=== PATIENT | female | born 1940 | race Caucasian/White ===

== ENCOUNTER 2018-05-21 18:37 | Emergency (ER) | payer OTHER ==
[2018-05-21] MEDS ORDERED: HYDROCODONE/APAP 5/325 MG TAB ONE (20:16)
--- NOTE | 2018-05-21 21:01 | RAD REPORT ---
EXAM DESCRIPTION: RAD - Knee Left 3 View - 05/21/2018 8:40 pm CLINICAL HISTORY: knee pain COMPARISON: No comparisons FINDINGS: Prominent soft tissue edema is present involving the leg. No fracture or dislocation seen. A pin is noted superficially along the lateral aspect of the lower leg.
--- NOTE | 2018-05-21 21:22 | ER ---
Nurse's Notes [facility] Name: Dang Ovalles Age: 77 yrs Sex: Female : 1940 Arrival Date: 05/21/2018 Time: 18:41 Bed 15 Private MD: Paula Chamorro F Diagnosis: Internal derangement of knee Presentation: 05/21 18:48 Presenting complaint: Patient states: "I kneeled down and my knee popped". Pt c/o left aa5 knee pain. Transition of care: patient was not received from another setting of care. Onset of symptoms was May 21, 2018. Risk Assessment: Do you want to hurt yourself or someone else? Patient reports no desire to harm self or others. Initial Sepsis Screen: Does the patient meet any 2 criteria? No. Patient's initial sepsis screen is negative. Does the patient have a suspected source of infection? No. Patient's initial sepsis screen is negative. Care prior to arrival: None. 18:48 Method Of Arrival: Wheelchair aa5 18:48 Acuity: TATY 4 aa5 Historical: - Allergies: 18:50 Tape; aa5 - PMHx: 18:50 lymphedema; Arthritis; Cellulitis; Diabetes - IDDM; aa5 - PSHx: 18:49 Hysterectomy; aa5 - Immunization history:: Pneumococcal vaccine is not up to date, Flu vaccine is not up to date. - Social history:: Smoking status: Patient/guardian denies using tobacco. - Ebola Screening: : No symptoms or risks identified at this time. Screenin:10 Abuse screen: Denies threats or abuse. Nutritional screening: No deficits noted. ea Tuberculosis screening: No symptoms or risk factors identified. Fall Risk None identified. Assessment: 20:10 General: Appears uncomfortable, Behavior is calm, cooperative, appropriate for age. ea Pain: Complains of pain in medial aspect of left knee Pain does not radiate. Pain currently is 8 out of 10 on a pain scale. Quality of pain is described as aching, Is continuous. Neuro: Level of Consciousness is awake, alert, obeys commands, Oriented to person, place, time, situation. Cardiovascular: Heart tones S1 S2 present Patient's skin is warm and dry. Respiratory: Airway is patent Respiratory effort is even, unlabored, Respiratory pattern is regular, symmetrical, Breath sounds are clear bilaterally. GI: No signs and/or symptoms were reported involving the gastrointestinal system. GI: Abdomen is non-distended. : No signs and/or symptoms were reported regarding the genitourinary system. Derm: Skin is pink, warm \\T\\ dry. 21:15 Reassessment: Patient and/or family updated on plan of care and expected duration. Pain ea level reassessed. Patient is alert, oriented x 3, equal unlabored respirations, skin warm/dry/pink. 21:36 Reassessment: Patient and/or family updated on plan of care and expected duration. Pain ea level reassessed. Patient is alert, oriented x 3, equal unlabored respirations, skin warm/dry/pink. Discharge instructions given to patient, verbalized the understanding of instruction. Awaiting on son for transportation. 21:53 Reassessment: Patient and/or family updated on plan of care and expected duration. Pain ea level reassessed. Patient is alert, oriented x 3, equal unlabored respirations, skin warm/dry/pink. Patient left ED with son via wheelchair. Patient states feeling better. Patient states symptoms have improved. Vital Signs: 18:50 BP 161 / 70; Pulse 71; Resp 16 S; Temp 98.0(TE); Pulse Ox 98% on R/A; Weight 89.36 kg aa5 (R); Height 4 ft. 8 in. (142.24 cm); Pain 0/10; 19:52 BP 182 / 61; Pulse 62; Resp 18; Pulse Ox 100% ; ea 20:00 BP 182 / 73; Pulse 64; Resp 18; Pulse Ox 99% on R/A; ea 21:40 BP 168 / 73; Pulse 70; Resp 18; Temp 97.8(O); Pulse Ox 98% on R/A; Pain 3/10; ea 18:50 Body Mass Index 44.17 (89.36 kg, 142.24 cm) aa5 ED Course: 18:41 Patient arrived in ED. mr 18:41 Paula Chamorro MD is Private Physician. mr 18:49 Triage completed. aa5 18:49 Arm band placed on. aa5 19:56 [facility] 19:56 Zaire Castaneda MD is Attending Physician. [facility] 20:05 Gutierrez, Lissette, RN is Primary Nurse. ea 20:10 Patient has correct armband on for positive identification. Placed in gown. Bed in low ea position. Call light in reach. Side rails up X2. 20:39 Knee Left 3 View XRAY In Process Unspecified. EDMS 21:21 Maurizio Garcia MD is Referral Physician. [facility] 21:38 No provider procedures requiring assistance completed. Patient did not have IV access ea during this emergency room visit. Administered Medications: 20:12 Drug: [place] 5 mg-325 mg 1 tabs Route: PO; ea 21:18 Follow up: Response: No adverse reaction; Marked relief of symptoms; Pain is decreased ea Outcome: 21:21 Discharge ordered by MD. [facility] 21:38 Condition: improved ea 21:38 Discharge instructions given to patient, Instructed on discharge instructions, follow up and referral plans. medication usage, Demonstrated understanding of instructions, follow-up care, medications, Prescriptions given X 1. 21:53 Discharged to home via wheelchair, with family. ea 21:54 Patient left the ED. ea Signatures: Dispatcher [employer] EDMS David Hastings PA PA jmm Rivera, Maria mr RamirezDiana, RN RN aa5 Lissette Gutierrez RN RN ea
--- NOTE | 2018-05-21 21:22 | EDPHYS ---
Physician Documentation [facility] Name: Dang Ovalles Age: 77 yrs Sex: Female : 1940 Arrival Date: 05/21/2018 Time: 18:41 Bed 15 Private MD: Paula Chamorro, [place] ED Physician Zaire Castaneda HPI: 05/21 20:02 This 77 yrs old Female presents to ER via Wheelchair with complaints of Knee jmm Pain. 20:02 The patient presents with an injury, pain. The patient presents with an injury, pain, jmm that is acute. The complaints affect the medial aspect of left knee. Onset: The symptoms/episode began/occurred acutely, today. Modifying factors: The symptoms are alleviated by remaining still, the symptoms are aggravated by weight bearing. Associated signs and symptoms: Pertinent negatives fever. This is a 77 year old female with a history of lymphedema, arthritis, DM that presents to the ED with left knee pain which occurred after standing and feeling a pop. Patient denies other injury. Historical: - Allergies: 18:50 Tape; aa5 - PMHx: 18:50 lymphedema; Arthritis; Cellulitis; Diabetes - IDDM; aa5 - PSHx: 18:49 Hysterectomy; aa5 - Immunization history:: Pneumococcal vaccine is not up to date, Flu vaccine is not up to date. - Social history:: Smoking status: Patient/guardian denies using tobacco. - Ebola Screening: : No symptoms or risks identified at this time. ROS: 20:02 Constitutional: Negative for fever, chills, and weight loss, Respiratory: Negative for jmm shortness of breath, cough, wheezing, and pleuritic chest pain. 20:02 MS/extremity: Positive for injury or acute deformity, pain. 20:02 All other systems are negative. Exam: 20:02 Head/Face: atraumatic. Chest/axilla: Normal chest wall appearance and motion. jmm Cardiovascular: Regular rate and rhythm. No edema appreciated Respiratory: Normal respirations, no respiratory distress appreciated 20:02 Constitutional: The patient appears in no acute distress, alert, awake. 20:02 Musculoskeletal/extremity: diffuse swelling appreciated bilaterally, exam was difficult due to body habitus, compartments are soft, pain is elicited on palpation of the left anterior knee, NVI. 20:02 Skin: Appearance: Color: normal in color. 20:02 Neuro: Orientation: is normal, Mentation: is normal, Memory: is normal. 20:02 Psych: Behavior/mood is pleasant, cooperative. Vital Signs: 18:50 BP 161 / 70; Pulse 71; Resp 16 S; Temp 98.0(TE); Pulse Ox 98% on R/A; Weight 89.36 kg aa5 (R); Height 4 ft. 8 in. (142.24 cm); Pain 0/10; 19:52 BP 182 / 61; Pulse 62; Resp 18; Pulse Ox 100% ; ea 20:00 BP 182 / 73; Pulse 64; Resp 18; Pulse Ox 99% on R/A; ea 21:40 BP 168 / 73; Pulse 70; Resp 18; Temp 97.8(O); Pulse Ox 98% on R/A; Pain 3/10; ea 18:50 Body Mass Index 44.17 (89.36 kg, 142.24 cm) aa5 MDM: 20:02 Patient medically screened. [facility] 20:36 Data reviewed: vital signs, nurses notes. Data interpreted: Pulse oximetry: on room air [facility] is 98 %. Interpretation: normal. Counseling: I had a detailed discussion with the patient and/or guardian regarding: the historical points, exam findings, and any diagnostic results supporting the discharge/admit diagnosis, the need for outpatient follow up, to return to the emergency department if symptoms worsen or persist or if there are any questions or concerns that arise at home. 05/21 20:03 Order name: Knee Left 3 View XRAY; Complete Time: 21:20 [facility] 05/21 21:21 Order name: Dayo wrap-joint; Complete Time: 21:28 [facility] Administered Medications: 20:12 Drug: [place] 5 mg-325 mg 1 tabs Route: PO; ea 21:18 Follow up: Response: No adverse reaction; Marked relief of symptoms; Pain is decreased ea Disposition: 05/22 06:43 Co-signature as Attending Physician, Zaire Castaneda MD I agree with the assessment and thompson plan of care. Disposition: 05/21/18 21:21 Discharged to Home. Impression: Internal derangement of knee. - Condition is Stable. - Discharge Instructions: Knee Pain. - Prescriptions for Tylenol- Codeine #3 300-30 mg Oral Tablet - take 1 tablet by ORAL route every 6 hours As needed; 12 tablet. - Medication Reconciliation Form, Thank You Letter, Antibiotic Education, Prescription Opioid Use form. - Follow up: Maurizio Garcia MD; When: 2 - 3 days; Reason: Recheck today's complaints, Continuance of care, Re-evaluation by your physician. Signatures: Dispatcher [employer] [facility] Zaire Castaneda MD MD cha Mickail, Joel, PA PA jmm Calderon, Audri RN RN aa5 Lissette Gutierrez RN RN ea Corrections: (The following items were deleted from the chart) 05/21 20:12 20:03 Knee Right 3 View+RAD.RAD.BRZ ordered. [facility] 21:54 21:21 05/21/2018 21:21 Discharged to Home. Impression: Internal derangement of knee. ea Condition is Stable. Forms are Medication Reconciliation Form, Thank You Letter, Antibiotic Education, Prescription Opioid Use. Follow up: Maurizio Garcia; When: 2 - 3 days; Reason: Recheck today's complaints, Continuance of care, Re-evaluation by your physician. arturo
[2018-05-21 23:20] VITALS: BP 168/73; TEMP 97.8; O2SAT 98
== END 2018-05-21 21:54 | disposition home or self-care (01) ==
LOC: ER 18:37
DX: M23.92 Unspecified internal derangement of left knee (principal); E11.9 Type 2 diabetes mellitus without complications; Z91.048 Other nonmedicinal substance allergy status
CPT/HCPCS: 99283

== ENCOUNTER 2018-07-13 15:46 | Inpatient (IN) | payer OTHER ==
[2018-07-13 17:54] LABS: Absolute Lymphocytes (CBC) 0.6 K/uL (0.7-4.9); Absolute Monocytes 0.9 K/uL (0.1-1.3); Basophils % 0.1 % (0-1.3); Hematocrit 36.7 % (36.0-45.0); Lymphocytes % 4.6 % (15.3-44.8); MCH 30.2 pg (27.0-35.0); MCV 90.4 fL (80-100); MPV 8.6 fL (7.6-11.3); Monocytes % 6.3 % (3.3-12.3); RBC Red Blood Cell Count 4.06 M/uL (3.86-4.86)
[2018-07-13 17:56] LABS: Protime INR 1.37
[2018-07-13 18:17] LABS: Albumin 2.8 g/dL (3.4-5.0); Bilirubin Direct 0.4 mg/dL (0-0.2); Bilirubin Total 1.4 mg/dL (0.2-1.0); Potassium 4.1 mmol/L (3.5-5.1); Protein, Total 6.9 g/dL (6.4-8.2); Troponin (Emerg Dept Use Only) 0.03 ng/mL (0.0-0.045)
[2018-07-13 18:23] LABS: Magnesium 1.1 mg/dL (1.8-2.4)
--- NOTE | 2018-07-13 18:26 | RAD REPORT ---
EXAM DESCRIPTION: Danilo Single View07/13/2018 6:09 pm CLINICAL HISTORY: Shortness of breath COMPARISON: March 2018 FINDINGS: 8 centimeter consolidation involves the right lung. Left lung appears clear. The heart is mildly enlarged IMPRESSION: Right lung consolidation consistent with pneumonia. This should be followed until it has cleared to help exclude a post obstructive process/underlying mass
[2018-07-13 18:32] LABS: Blood Morphology Comment NOT SEEN (NOT SEEN); Platelet Estimate ADEQ
--- NOTE | 2018-07-13 18:38 | RAD REPORT ---
EXAM DESCRIPTION: USExtrem Venous W Compress Bil07/13/2018 6:31 pm CLINICAL HISTORY: Leg pain COMPARISON: 2016 FINDINGS: The common femoral, superficial femoral, and popliteal veins bilaterally are compressible and demonstrate augmentation. Doppler demonstrates good flow. The examination is somewhat limited secondary to body habitus A 3.9 x 1 x 3.7 centimeter right Hong's cyst IMPRESSION: No evidence of deep venous thrombosis involving either lower extremity. 3.9 centimeter right Hong's cyst
[2018-07-13] MEDS ORDERED: ALBUTEROL 2.5 MG/3 ML NEB SOL ONE (18:46)
[2018-07-13] MEDS ORDERED: IPRATROPIUM BROM 0.5MG/2.5ML ONE (18:46)
[2018-07-13] MEDS ORDERED: Magnesium Sulfate 2gm IVPB 2 G/50 ML BAG IV ONE (18:47)
[2018-07-13] MEDS ORDERED: Levofloxacin 750mg IV 750 MG/150 ML BAG IV ONE (18:47)
--- NOTE | 2018-07-13 19:21 | EDPHYS ---
Physician Documentation [facility] Name: Dang Ovalles Age: 78 yrs Sex: Female : 1940 Arrival Date: 07/13/2018 Time: 15:52 Bed 8 Private MD: Paula Chamorro F ED Physician John Latif HPI: 07/14 05:06 This 78 yrs old Female presents to ER via Wheelchair with complaints of Leg tw4 Pain, Fever, Shortness Of Breath. 05:06 The patient presents with pain. The patient presents with swelling. The complaints tw4 affect the lateral aspect of left calf, left calf, medial aspect of left calf and left [place], lateral aspect of right calf, right calf, medial aspect of right calf and right saldana. Context: The problem was sustained at home. Onset: The symptoms/episode began/occurred 1 week(s) ago. Modifying factors: The symptoms are alleviated by nothing. the symptoms are aggravated by nothing. Associated signs and symptoms: The patient has no apparent associated signs or symptoms. The patient has shortness of breath at rest. Onset: The symptoms/episode began/occurred 2 day(s) ago. Duration: The symptoms are continuous. The patient's shortness of breath has no apparent modifying factors. Associated signs and symptoms: The patient has no apparent associated signs or symptoms. Historical: - Allergies: 07/13 16:28 Tape; jl7 - PMHx: 16:28 Arthritis; Cellulitis; Diabetes - IDDM; lymphedema; breast cancer; jl7 - PSHx: 16:28 Hysterectomy; jl7 - Immunization history:: Adult Immunizations not up to date. - Social history:: Smoking status: Patient/guardian denies using tobacco. - Ebola Screening: : No symptoms or risks identified at this time. ROS: 07/14 05:06 Constitutional: Negative for fever, chills, and weight loss, Eyes: Negative for injury, tw4 pain, redness, and discharge, Cardiovascular: Negative for chest pain, palpitations, and edema, Abdomen/GI: Negative for abdominal pain, nausea, vomiting, diarrhea, and constipation, Back: Negative for injury and pain, Skin: Negative for injury, rash, and discoloration, Neuro: Negative for headache, weakness, numbness, tingling, and seizure. Respiratory: Positive for cough, shortness of breath. MS/extremity: Positive for pain. Exam: 05:06 Eyes: Pupils equal round and reactive to light, extra-ocular motions intact. Lids and tw4 lashes normal. Conjunctiva and sclera are non-icteric and not injected. Cornea within normal limits. Periorbital areas with no swelling, redness, or edema. ENT: Nares patent. No nasal discharge, no septal abnormalities noted. Tympanic membranes are normal and external auditory canals are clear. Oropharynx with no redness, swelling, or masses, exudates, or evidence of obstruction, uvula midline. Mucous membranes moist. Neck: Trachea midline, no thyromegaly or masses palpated, and no cervical lymphadenopathy. Supple, full range of motion without nuchal rigidity, or vertebral point tenderness. No Meningismus. Chest/axilla: Normal chest wall appearance and motion. Nontender with no deformity. No lesions are appreciated. Cardiovascular: Regular rate and rhythm with a normal S1 and S2. No gallops, murmurs, or rubs. Normal PMI, no JVD. No pulse deficits. 05:06 Constitutional: The patient appears alert, awake, in obvious distress, mildly distressed. 05:06 Respiratory: the patient does not display signs of respiratory distress, Respirations: normal, Breath sounds: rales. Vital Signs: 07/13 16:28 BP 121 / 50; Pulse 94; Resp 24 S; Temp 100(O); Pulse Ox 96% on R/A; Weight 90.72 kg jl7 (R); Height 4 ft. 8 in. (142.24 cm) (R); Pain 1/10; 20:01 BP 118 / 55; Pulse 96; Resp 26; Pulse Ox 94% on R/A; mt 20:36 BP 107 / 58; Pulse 98; Resp 20; Pulse Ox 100% on R/A; mt 21:30 BP 102 / 59; Pulse 102; Resp 25 S; Pulse Ox 94% on R/A; jd3 16:28 Body Mass Index 44.84 (90.72 kg, 142.24 cm) jl7 MDM: 17:07 Patient medically screened. [facility] 07/14 05:06 Differential diagnosis: dislocation, contusion, abrasion. Data reviewed: vital signs, tw4 nurses notes. Test interpretation: by ED physician or midlevel provider: ECG. Counseling: I had a detailed discussion with the patient and/or guardian regarding: the historical points, exam findings, and any diagnostic results supporting the discharge/admit diagnosis, lab results, radiology results, the need for further work-up and treatment in the hospital. 05:06 Antibiotic administration: Levaquin given, Rocephin and Zithromax given. 4 07/13 17:15 Order name: Basic Metabolic Panel [facility] 07/13 17:15 Order name: CBC with Diff tw 07/13 17:15 Order name: LFT's [facility] 07/13 17:15 Order name: Magnesium [facility] 07/13 17:15 Order name: NT PRO-BNP [facility] 07/13 17:15 Order name: PT-INR [facility] 07/13 17:15 Order name: Troponin (emerg Dept Use Only) [facility] 07/13 17:55 Order name: CBC with Automated Diff [facility] 07/13 18:23 Interpretation: Normal except: WBC 13.5; SHERON% 89.0; LYM% 4.6; NEUT A 12.0; LYMA 0.6. 4 07/13 17:57 Order name: Protime (+INR); Complete Time: 18:19 [facility] 07/13 18:23 Interpretation: Normal except: PT 16.2. tw4 07/13 18:24 Order name: Basic Metabolic Panel [facility] 07/13 18:24 Order name: Liver (Hepatic) Function [facility] 07/13 18:24 Order name: Troponin (Emerg Dept Use Only) [facility] 07/13 18:24 Order name: NT PRO-BNP [facility] 07/13 18:24 Order name: Magnesium; Complete Time: 18:51 [facility]CO 07/13 17:15 Order name: XRAY Chest (1 view) [facility] 07/13 17:15 Order name: EKG; Complete Time: 17:17 4 07/13 17:15 Order name: Cardiac monitoring; Complete Time: 17:39 [facility] 07/13 17:15 Order name: EKG - Nurse/Tech; Complete Time: 17:39 [facility] 07/13 17:16 Order name: US Extremity Venous W Compression Jarrell 4 07/13 18:26 Order name: RAD; Complete Time: 18:51 EDMS 07/13 18:32 Order name: Manual Differential [facility] 07/13 18:38 Order name: US [facility] 07/13 19:08 Order name: Lactate tw4 07/13 21:05 Order name: Troponin I EDMS 07/13 21:14 Order name: Lactate [facility] 07/13 17:15 Order name: IV Saline Lock; Complete Time: 17:40 tw4 07/13 17:15 Order name: Labs collected and sent; Complete Time: 17:40 tw4 07/13 17:15 Order name: O2 Per Protocol; Complete Time: 17:40 tw4 07/13 17:15 Order name: O2 Sat Monitoring; Complete Time: 17:40 tw4 Administered Medications: 07/13 18:43 Drug: Albuterol - atroVENT (3:1) (2.5 mg - 0.5 mg) 3 ml Route: Nebulizer; rv 20:08 Follow up: Response: No adverse reaction rv 18:49 Drug: Magnesium Sulfate 2 grams Route: IVPB; Infused Over: 2 hrs; Site: right rv antecubital; 20:09 Follow up: IV Status: Completed infusion rv 19:08 CANCELLED (Physician Discretion): CefUROXime 750 mg IVPB once over 30 mins; (mix in 100 jd3 mL NS) 19:55 Drug: Rocephin 2 grams Route: IV; Rate: calculated rate; Site: right antecubital; rv 21:09 Follow up: Response: No adverse reaction; IV Status: Completed infusion jd3 20:00 Drug: LevaQUIN 750 mg Volume: 150 ml; Route: IVPB; Infused Over: 90 mins; Site: right rv antecubital; 21:09 Follow up: Response: No adverse reaction; IV Status: Infusion continued upon admission jd3 Disposition: 07/13/18 18:49 Hospitalization ordered by Paula Chamorro for Inpatient Admission. Preliminary diagnosis are Pneumonia due to other specified bacteria, Hypoxemia, Hypomagnesemia, Bandemia, Synovial cyst of popliteal space [Hong], right knee. - Bed requested for Telemetry/MedSurg (Inpatient). - Status is Inpatient Admission. jd3 - Condition is Stable. - Problem is new. - Symptoms are unchanged. UTI on Admission? No Signatures: Dispatcher [employer] [facility] Zaire Castaneda MD MD cha Chretien, Felicia, RN RN fc Leal, Jahala, RN RN jl7 Davies, Jonathon, RN RN j John Latif MD MD tw4 Anthony Luther, RN RN rv Corrections: (The following items were deleted from the chart) 18:49 18:49 Hospitalization Ordered by Paula Chamorro MD for Inpatient Admission. Preliminary tw4 diagnosis is Pneumonia due to other specified bacteria; Hypoxemia; Hypomagnesemia; Bandemia. Bed requested for Telemetry/MedSurg (Inpatient). Status is Inpatient Admission. Condition is Stable. Problem is new. Symptoms are unchanged. UTI on Admission? No. tw4 19:08 18:20 CefUROXime 750 mg IVPB once over 30 mins; (mix in 100 mL NS) ordered. tw4 jd3 20:29 18:49 07/13/2018 18:49 Hospitalization Ordered by Paula Chamorro MD for Inpatient Admission. Preliminary diagnosis is Pneumonia due to other specified bacteria; Hypoxemia; Hypomagnesemia; Bandemia; Synovial cyst of popliteal space [Hong], right knee. Bed requested for Telemetry/MedSurg (Inpatient). Status is Inpatient Admission. Condition is Stable. Problem is new. Symptoms are unchanged. UTI on Admission? No. tw4 21:57 20:29 07/13/2018 18:49 Hospitalization Ordered by Paula Chamorro MD for Inpatient jd3 Admission. Preliminary diagnosis is Pneumonia due to other specified bacteria; Hypoxemia; Hypomagnesemia; Bandemia; Synovial cyst of popliteal space [Hong], right knee. Bed requested for Telemetry/MedSurg (Inpatient). Status is Inpatient Admission. Condition is Stable. Problem is new. Symptoms are unchanged. UTI on Admission? No. fc
--- NOTE | 2018-07-13 19:21 | ER ---
Nurse's Notes [facility] Name: Dang Ovalles Age: 78 yrs Sex: Female : 1940 Arrival Date: 07/13/2018 Time: 15:52 Bed 8 Private MD: Paula Chamorro F Diagnosis: Pneumonia due to other specified bacteria;Hypoxemia;Hypomagnesemia;Bandemia;Synovial cyst of popliteal space [Hong], right knee Presentation: 07/13 16:24 Presenting complaint: Patient states: Chills, fever shortness of breath started last jl7 night. Left leg infection and pain started this morning. Went to Dr. Barrett's office and they took her temperature and said it was 102.5 and told us to bring her here. They did not give any medication. Transition of care: patient was not received from another setting of care. Onset of symptoms was July 12, 2018. Risk Assessment: Do you want to hurt yourself or someone else? Patient reports no desire to harm self or others. Initial Sepsis Screen: Does the patient meet any 2 criteria? No. Patient's initial sepsis screen is negative. Does the patient have a suspected source of infection? No. Patient's initial sepsis screen is negative. Care prior to arrival: None. 16:24 Method Of Arrival: Wheelchair [facility] 16:24 Acuity: TATY 3 jl7 Triage Assessment: 16:28 General: Appears uncomfortable, ill, Behavior is calm, cooperative, appropriate for jl7 age. Pain: Complains of pain in left leg Pain currently is 1 out of 10 on a pain scale. Respiratory: Reports shortness of breath at rest Airway is patent Respiratory effort is even, labored, Respiratory pattern is symmetrical, tachypnea Onset: The symptoms/episode began/occurred this morning, the patient has moderate shortness of breath. Historical: - Allergies: 16:28 Tape; jl7 - PMHx: 16:28 Arthritis; Cellulitis; Diabetes - IDDM; lymphedema; breast cancer; jl7 - PSHx: 16:28 Hysterectomy; jl7 - Immunization history:: Adult Immunizations not up to date. - Social history:: Smoking status: Patient/guardian denies using tobacco. - Ebola Screening: : No symptoms or risks identified at this time. Screenin:02 Abuse screen: Denies threats or abuse. Denies injuries from another. Nutritional rv screening: No deficits noted. Tuberculosis screening: No symptoms or risk factors identified. Fall Risk None identified. Assessment: 18:01 General: Appears in no apparent distress. uncomfortable, obese, Behavior is calm, rv cooperative. Pain: Denies pain. Neuro: Level of Consciousness is awake, alert, obeys commands, Oriented to person, place, time, situation. Cardiovascular: Rhythm is regular. Respiratory: Airway is patent Breath sounds are clear bilaterally. GI: No signs and/or symptoms were reported involving the gastrointestinal system. : No signs and/or symptoms were reported regarding the genitourinary system. EENT: No signs and/or symptoms were reported regarding the EENT system. Derm: Skin is intact. Musculoskeletal: No signs and/or symptoms reported regarding the musculoskeletal system. 19:00 Reassessment: Patient appears in no apparent distress at this time. No changes from jd3 previously documented assessment. Patient and/or family updated on plan of care and expected duration. Pain level reassessed. Patient is alert, oriented x 3, equal unlabored respirations, skin warm/dry/pink. 20:00 Reassessment: Patient appears in no apparent distress at this time. No changes from jd3 previously documented assessment. Patient and/or family updated on plan of care and expected duration. Pain level reassessed. Patient is alert, oriented x 3, equal unlabored respirations, skin warm/dry/pink. 21:00 Reassessment: Patient appears in no apparent distress at this time. No changes from jd3 previously documented assessment. Patient and/or family updated on plan of care and expected duration. Pain level reassessed. Patient is alert, oriented x 3, equal unlabored respirations, skin warm/dry/pink. 21:50 Reassessment: Patient appears in no apparent distress at this time. No changes from jd3 previously documented assessment. Vital Signs: 16:28 BP 121 / 50; Pulse 94; Resp 24 S; Temp 100(O); Pulse Ox 96% on R/A; Weight 90.72 kg jl7 (R); Height 4 ft. 8 in. (142.24 cm) (R); Pain 1/10; 20:01 BP 118 / 55; Pulse 96; Resp 26; Pulse Ox 94% on R/A; mt 20:36 BP 107 / 58; Pulse 98; Resp 20; Pulse Ox 100% on R/A; mt 21:30 BP 102 / 59; Pulse 102; Resp 25 S; Pulse Ox 94% on R/A; jd3 16:28 Body Mass Index 44.84 (90.72 kg, 142.24 cm) jl7 ED Course: 15:52 Patient arrived in ED. sb2 15:53 Paula Chamorro MD is Private Physician. sb2 16:27 Triage completed. jl7 16:28 Arm band placed on right wrist. jl7 17:07 Zaire Castaneda MD is Attending Physician. [facility] 17:08 Attending Physician role handed off by Zaire Castaneda MD tw4 17:08 John Latif MD is Attending Physician. tw4 17:39 EKG done, by coating technician. reviewed by John Latif MD. sm3 17:40 Inserted saline lock: 22 gauge in right antecubital area, using aseptic technique. rv Blood collected. 17:40 Initial lab(s) drawn, by mn, sent to lab. rv 18:02 Patient has correct armband on for positive identification. Bed in low position. Call rv light in reach. Side rails up X 1. Adult w/ patient. wood and hardware outfitter on. Pulse ox on. NIBP on. 18:48 Paula Chamorro MD is Hospitalizing Provider. tw4 19:07 Martínez Pyle, RN is Primary Nurse. jd3 21:50 No provider procedures requiring assistance completed. Patient admitted, IV remains in jd3 place. Administered Medications: 18:43 Drug: Albuterol - atroVENT (3:1) (2.5 mg - 0.5 mg) 3 ml Route: Nebulizer; rv 20:08 Follow up: Response: No adverse reaction rv 18:49 Drug: Magnesium Sulfate 2 grams Route: IVPB; Infused Over: 2 hrs; Site: right rv antecubital; 20:09 Follow up: IV Status: Completed infusion rv 19:08 CANCELLED (Physician Discretion): CefUROXime 750 mg IVPB once over 30 mins; (mix in 100 jd3 mL NS) 19:55 Drug: Rocephin 2 grams Route: IV; Rate: calculated rate; Site: right antecubital; rv 21:09 Follow up: Response: No adverse reaction; IV Status: Completed infusion jd3 20:00 Drug: LevaQUIN 750 mg Volume: 150 ml; Route: IVPB; Infused Over: 90 mins; Site: right rv antecubital; 21:09 Follow up: Response: No adverse reaction; IV Status: Infusion continued upon admission jd3 Outcome: 18:49 Decision to Hospitalize by Provider. tw4 21:50 Admitted to Med/surg accompanied by tech, via wheelchair, room 430, with chart, Report jd3 called to Nicky CHAMBERS 21:50 Condition: stable 21:50 Instructed on the need for admit, Demonstrated understanding of instructions. 21:50 Patient left the ED. jd3 Signatures: Zaire Castaneda MD MD cha Leal, Jahala, RN RN jl7 Yu Ruiz mt, Jonathon, RN RN jJonh Scott MD MD tw4 Fiona Quinones 2 Charmaine López 3 Anthony Luther, RN RN rv Corrections: (The following items were deleted from the chart) 21:58 21:57 Patient left the ED. jd3 jd3
[2018-07-13] MEDS ORDERED: CEFTRIAXONE/SWI 1gm 2 GM/20 ML SYR ONE (19:57)
[2018-07-13] MEDS ORDERED: Levofloxacin500mg IV 100 ML IV SCH (20:00)
[2018-07-13] MEDS ORDERED: CEFTRIAXONE 1 GM/NS 50 ML 1 GM/50 ML BAG IV SCH (21:00)
[2018-07-13] MEDS: ACETAMINOPHEN 500 MG TAB PO PRN (23:06)
[2018-07-14] MEDS ORDERED: NA CHLORIDE 0.9% 250 ML IV ONE (00:43)
[2018-07-14] MEDS: NA CHLORIDE 0.9% 1,000 ML IV SCH ×3 (01:00→21:00)
[2018-07-14 02:44] VITALS: BMI 47.0
--- NOTE | 2018-07-14 05:52 | EKG ---
Test Date: 2018-07-13 Test Time: 17:34:46 Avp: DULCE MARIA MEASUREMENT RESULTS: Intervals: Rate: 92 ID: [id number] QRSD: 102 QT: 342 QTc: 422 [place]: P: 55 ID: [id number] QRS: 21 T: 24 INTERPRETIVE STATEMENTS: Normal sinus rhythm Incomplete right bundle branch block Septal infarct, age undetermined Abnormal ECG No previous ECG available for comparison Electronically Signed On 07-14-18 05:51:35 CONTRACT ASSISTANT by Jarvis Mackey
[2018-07-14 06:06] LABS: Absolute Lymphocytes (CBC) 1.1 K/uL (0.7-4.9); Absolute Monocytes 1.1 K/uL (0.1-1.3); Absolute Neutrophil 14.6 K/uL (1.8-8.0); Basophils % 0.2 % (0-1.3); Hematocrit 34.4 % (36.0-45.0); Lymphocytes % 6.4 % (15.3-44.8); MCH 30.8 pg (27.0-35.0); MCV 90.1 fL (80-100); MPV 9.1 fL (7.6-11.3); Monocytes % 6.3 % (3.3-12.3); RBC Red Blood Cell Count 3.82 M/uL (3.86-4.86)
[2018-07-14 06:15] LABS: Magnesium 1.9 mg/dL (1.8-2.4)
[2018-07-14] MEDS: CEFTRIAXONE/SWI 1gm 1 GM/10 ML SYR IV SCH ×2 (08:18→23:18)
[2018-07-14 08:37] LABS: Platelet Estimate ADEQ
[2018-07-14 08:38] LABS: Blood Morphology Comment NOT SEEN (NOT SEEN)
--- NOTE | 2018-07-14 12:36 | P.CNS ---
Date of Consult: 07/14/18 Reason for Consult: Right lower lobe pneumonia Chief Complaint: Cough congestion fever chills History of Present Illness: Patient is 78 years of age no prior history of cardiopulmonary problems woke up complaining of fever chills cough shortness of breath. Denied any chest pain admitted from the hospital with a diagnosis of severe sepsis and right lower lobe pneumonia currently patient is stable although blood pressure is little low Allergies adhesive tape Allergy (Intermediate, Verified 07/14/18 02:59) Rash Home Medications: Esomeprazole Mag Trihydrate [Nexium] 40 mg PO DAILY 07/12/15 Fluocinonide [Lidex] 1 gm TP DAILY 07/12/15 Metformin HCl [Metformin HCl ER] 750 mg PO DAILY 07/12/15 Nystatin Cream [Mycostatin 100MU/Gm Cream*] 30 gm TP BID 07/12/15 Triamterene/Hctz [DYAZIDE or MAXZIDE (37.5 MG/25 MG)*] 1 cap PO DAILY 07/12/15 Amoxicillin/Potassium Clav [Augmentin 875-125 Tablet] 1 each PO BID #20 tablet 12/07/15 - Past Medical/Surgical History Diabetic: Yes -: cellulitis rt leg -: lymphedema 1982 -: GERD -: DM -: Arthritis -: Breast cancer -: Hysterectomy cancer 1970 -: D&C - Family History Brother Medical History: Cancer Notes: sister also Father History Unknown: Yes Mother History Unknown: Yes - Social History Smoking Status: Never smoker Alcohol use: No CD- Drugs: No Caffeine use: Yes Place of Residence: Home Review of Systems 10-point ROS is otherwise unremarkable General: Weakness Respiratory: Cough, Shortness of Breath Physical Examination Temp Pulse Resp BP Pulse Ox 97.6 F 80 32 H 103/47 L 98 07/14/18 08:00 07/14/18 08:00 07/14/18 08:00 07/14/18 08:00 07/14/18 08:00 General: Alert, Oriented x3 HEENT: Atraumatic Neck: Supple Respiratory: Crackles/rales (Crackles at the right base) Cardiovascular: Edema (Patient has chronic lymphedema) Gastrointestinal: Normal bowel sounds, Soft and benign Laboratory Data (last 24 hrs) 07/13/18 17:40: PT 16.2 H, INR 1.37 07/13/18 17:40: WBC 13.5 H, Hgb 12.3, Hct 36.7, Plt Count 172 07/13/18 17:40: Sodium 132 L, Potassium 4.1, BUN 22 H, Creatinine 1.40 H, Glucose 301 H, Magnesium 1.1 L*, Total Bilirubin 1.4 H, AST 26, ALT 19, Alkaline Phosphatase 67 - Problems (1) Pneumonia Current Visit: Yes Status: Acute Plan: Patient is 78 years of age admitted with signs and symptoms of pneumonia she appears to have a right lower lobe pneumonia elevated white count lactic acid bandemia also has renal insufficiency low blood pressure white count elevated she got a dose of Rocephin and levofloxacin in the emergency room needs a central line access fluid bolus signs symptoms are consistent with most likely in a streptococcal pneumonia will adjust antibiotics depending on the cultures and sensitivities Qualifiers: Pneumonia type: due to unspecified organism
[2018-07-14] MEDS: NA CHLORIDE 0.9% 500 ML ONE ×2 (14:13→14:21)
[2018-07-14] MEDS ORDERED: LIDOCAINE 1% MPF 30 ML VIAL ONE (14:35)
--- NOTE | 2018-07-14 14:45 | P.CNS ---
Date of Consult: 07/14/18 PC: I was asked to see this 78-year-old female regards to placement of a central line. HPC: Patient currently is septic from pneumonia. Has no IV access. PMH: History of breast cancer, had radiation to left-sided chest and axilla PSHx: Previous surgeries the left breast, no clavicular fractures SOC: Allergic to adhesive tape O/E awake alert stable stable HEENT: Not jaundiced Chest: Entry equal bilaterally ABD: Soft LOCO: No evidence of clavicular fractures right side DATA: Elevated white cell count, signs is sent IMPRESSION: Sepsis with pneumonia, requires IV access PLAN: L2 to the operating room for insertion of a right subclavian catheter. The risks of this procedure were discussed. She understands and wants to proceed.
--- NOTE | 2018-07-14 14:47 | P.OP ---
Preoperative diagnosis: Lack of vascular access, sepsis Postoperative diagnosis: The same Primary procedure: Insertion of right subclavian catheter Anesthesia: Local Estimated blood loss: Less than 10 cc Operative Technique: The patient brought the operating room placed supine on the table. After placing a roll between the shoulders: There the right chest was prepped with a AE iodoform solution, she was draped in usual aseptic manner. The subclavicular area was injected lumps of lidocaine. She was then placed in Trendelenburg. Using the a finer needle the right subclavian vein was cannulated. We had good flow of dark venous blood. The guidewire was passed down through or needle. Ectopy having been obtained, the will opening was mildly dilated using the dilator. The catheter was now plasty over the guidewire and position. The guidewire was removed. The catheter was then sutured in place. It was flushed with normal saline. At the end of procedure she was stable when placed in recovery. Chest x-ray is pending. Complications: None Transferred to: Recovery Room
--- NOTE | 2018-07-14 14:59 | RAD REPORT ---
EXAM DESCRIPTION: RAD - Chest Single View - 07/14/2018 2:47 pm CLINICAL HISTORY: catheter placment Chest pain. COMPARISON: Chest Single View dated 07/13/2018; CHEST SINGLE VIEW dated 06/06/2013; CHEST PA AND LAT 2 VIEW dated 03/11/2011 FINDINGS: Portable technique limits examination quality. The right-sided venous catheter has been placed with its tip in the SVC. No postprocedure pneumothora x seen.
[2018-07-14] MEDS ORDERED: GLUCAGON 1 MG/VIAL IM PRN (16:17)
[2018-07-14] MEDS ORDERED: D50W 25 GM/50 ML SYRINGE IV PRN (16:17)
[2018-07-14] MEDS ORDERED: SODIUM CHL 0.9% 1000 ML BAG IV ONE (16:26)
[2018-07-14] MEDS ORDERED: NA CHLORIDE 0.9% IV ONE (17:00)
[2018-07-14] MEDS: AZITHROMYCIN 250 MG TAB PO SCH (17:45)
[2018-07-14] MEDS: INSULIN -REGULAR HUMAN 50 UNIT/0.5 ML ML SQ SCH ×2 (17:46→21:00)
[2018-07-14] MEDS: ENOXAPARIN 30 MG/0.3 ML SQ SCH (17:47)
[2018-07-14 18:33] LABS: Urine Appearance CLOUDY; Urine Bilirubin NEGATIVE (NEG); Urine Blood NEGATIVE (NEG); Urine Color DK YELLOW; Urine Glucose NEGATIVE (NEG); Urine Protein TRACE (NEG); Urine Urobilinogen 0.2 mg/dL (0.2-1.0)
[2018-07-14 18:46] LABS: Urine Bacteria 20-50 /HPF (<20); Urine RBC NONE SEEN /HPF (NONE SEEN)
[2018-07-14 18:47] LABS: Urine Culture Reflex Order REFLEXED
[2018-07-14] MEDS ORDERED: Levofloxacin 250mg IV 250 MG/50 ML BAG IV SCH (21:00)
--- NOTE | 2018-07-14 22:13 | HP ---
Date of Admission: 07/13/2018 History Of Present Illness: A 78 year female with type 2 diabetes started feeling feverish and then started having chills with a mild dry cough for about 1 day before she presented to the emergency diane with that complaint. She started feeling weak, fatigue, shortness of breath. Workup showed right lobar pneumonia with sepsis and the patient was admitted for that. Review of Systems: Cardiovascular: No complaints. Respiratory: As above. Skeletomuscular: All over body aches with fever. No other complaint. Genitourinary: No complaint. Gastrointestinal: Mild nausea but no vomiting. No other complaint. Neurological: No complaint. Past Medical History: 1.Type 2 diabetes. 2.Chronic lower extremity lymphedema. 3.Breast cancer. 4.Arthritis multiple joints. 5.Recurrent cellulitis in her lower extremities lymphedemic area. The patient also has had a hyster ectomy. Social History: No smoking, alcohol, or IV drug abuse history. Family History: Noncontributing. Medications: The patient's medications include Maxzide 37.5/25 one p.o. daily, metformin 750 daily p .o., Lidex 1 g daily, Nexium 40 mg p.o. daily. Allergies: ADHESIVE TAPE. Physical Examination: Vital Signs: Blood pressure 103/47, pulse 80, temperature initially on presenting to the emergency r oom was 100 Fahrenheit, now dropped down to 97.6. Heart: Regular rate and rhythm. Chest: Bilateral crackles all lung field, more on the right side. Abdomen: Soft, nontender. No hepatosplenomegaly. Bowel sounds are normoactive. Extremities: Chronic lymphedema with erythema chronic for the patient on both legs. Neurological: Alert, oriented, nonfocal. Grossly intact. Diagnostic Data: Chest x-ray showed lobar pneumonia, consolidation of the right lung. Electrocardio gram: Normal sinus rhythm. Incomplete right bundle-branch block and septal Q-waves. Lower extremit y study showed Hong cyst, but no DVT. Laboratory Data: White cell count 16.7, hemoglobin 11.8, hematocrit 34.4, platelets 145, neutrophils 87.1, bands 32 which are high. Chemistry: Sodium 133, potassium 4, BUN 30, creatinine 1.50. Lacti c acid dropped from 5.1 to 3.1. BNP 1135, magnesium 1.9. Assessment/plan: Sepsis with right lung pneumonia. The patient is being admitted and put on IV Leva cedrick and IV Rocephin antibiotic. Blood cultures are drawn. She was put on oxygen protocol and beta- 2 agonist breathing treatments and IV fluids. We will also monitor her blood sugar, put her on insul in sliding scale moderate, and we will put her on Lovenox subcutaneous prophylaxis. Look orders for details. MFS/MODL Voice ID: [id number]
[2018-07-15 05:37] LABS: Absolute Lymphocytes (CBC) 1.4 K/uL (0.7-4.9); Absolute Monocytes 0.9 K/uL (0.1-1.3); Absolute Neutrophil 14.3 K/uL (1.8-8.0); Basophils % 0.1 % (0-1.3); Eosinophils % 0.7 % (0-4.4); Hematocrit 30.5 % (36.0-45.0); Lymphocytes % 8.6 % (15.3-44.8); MCH 30.4 pg (27.0-35.0); MCV 90.1 fL (80-100); MPV 9.2 fL (7.6-11.3); Monocytes % 5.4 % (3.3-12.3); RBC Red Blood Cell Count 3.38 M/uL (3.86-4.86)
[2018-07-15 05:47] LABS: Magnesium 1.8 mg/dL (1.8-2.4); Potassium 3.9 mmol/L (3.5-5.1)
[2018-07-15] MEDS: NA CHLORIDE 0.9% 1,000 ML IV SCH (07:00)
[2018-07-15] MEDS: INSULIN -REGULAR HUMAN 50 UNIT/0.5 ML ML SQ SCH ×4 (07:30→21:22)
[2018-07-15] MEDS ORDERED: MAGNESIUM SULFATE 1 gm IVPB 1 GM/100 ML BAG IV ONE (09:00)
[2018-07-15] MEDS ORDERED: POTASSIUM CL SA 10 MEQ TAB PO ONE (09:00)
[2018-07-15] MEDS: CEFTRIAXONE/SWI 1gm 1 GM/10 ML SYR IV SCH ×2 (09:43→21:25)
--- NOTE | 2018-07-15 11:10 | P.PN ---
Subjective Date of Service: 07/15/18 Chief Complaint: Pneumonia Subjective: Improving (Patient is improving she had a rough night last night the central line in place received IV fluids still short of breath) Review of Systems General: Weakness Respiratory: Cough Physical Examination - Vital Signs Temperature: 97.6 F Blood Pressure: 133/74 Pulse: 76 Respirations: 24 Pulse Ox (%): 96 - Physical Exam General: Alert, Oriented x3 HEENT: Atraumatic Neck: Supple Respiratory: Crackles/rales (Crackles at the right base) Cardiovascular: Regular rate/rhythm, Normal S1 S2, Edema (Is chronic lymphoid) Assessment & Plan - Problems (Diagnosis) (1) Pneumonia Current Visit: Yes Status: Acute Plan: Patient admitted with pneumonia and repeat chest x-ray cultures are so far negative continue with antibiotics patient also has renal insufficiency Dc IV fluids labs reviewed chest x-ray ordered white count still elevated renal function is improving continue to monitor patient eating and drinking Qualifiers: Pneumonia type: due to unspecified organism
--- NOTE | 2018-07-15 12:17 | RAD REPORT ---
EXAM DESCRIPTION: RAD - Chest Single View - 07/15/2018 11:47 am CLINICAL HISTORY: Follow for pneumonia Chest pain. COMPARISON: Chest Single View dated 07/14/2018; Chest Single View dated 07/13/2018; CHEST SINGLE VIE W dated 06/06/2013; CHEST PA AND LAT 2 VIEW dated 03/11/2011 FINDINGS: Portable technique limits examination quality. Little overall change is seen in the right lower lung consolidation since comparative study. Right-si ded PICC line has tip in the SVC. The heart is mildly prominent size. No displaced fractures. IMPRESSION: Stable chest since 07/14/2018.
[2018-07-15] MEDS: ENOXAPARIN 30 MG/0.3 ML SQ SCH (16:57)
[2018-07-15] MEDS: AZITHROMYCIN 250 MG TAB PO SCH (16:58)
[2018-07-15] MEDS: IPRATROPIUM BROM 0.5MG/2.5ML NEB PRN ×2 (17:25→20:40)
[2018-07-15] MEDS: ALBUTEROL 2.5 MG/3 ML NEB SOL NEB PRN ×2 (17:25→20:40)
[2018-07-16 05:53] LABS: Absolute Lymphocytes (CBC) 1.5 K/uL (0.7-4.9); Basophils % 0.5 % (0-1.3); Eosinophils % 0.9 % (0-4.4); Hematocrit 32.3 % (36.0-45.0); Lymphocytes % 8.5 % (15.3-44.8); MCH 29.9 pg (27.0-35.0); MCV 89.8 fL (80-100); MPV 9.3 fL (7.6-11.3); Monocytes % 5.5 % (3.3-12.3)
[2018-07-16 06:03] LABS: Magnesium 2.2 mg/dL (1.8-2.4); Potassium 4.2 mmol/L (3.5-5.1)
[2018-07-16] MEDS: INSULIN -REGULAR HUMAN 50 UNIT/0.5 ML ML SQ SCH ×4 (07:30→21:56)
[2018-07-16] MEDS: CEFTRIAXONE/SWI 1gm 1 GM/10 ML SYR IV SCH ×2 (10:07→21:56)
[2018-07-16] MEDS: IPRATROPIUM BROM 0.5MG/2.5ML NEB PRN ×3 (10:08→22:18)
[2018-07-16] MEDS: ALBUTEROL 2.5 MG/3 ML NEB SOL NEB PRN ×3 (10:08→22:18)
[2018-07-16] MEDS: AMLODIPINE 5 MG TAB PO SCH (12:43)
--- NOTE | 2018-07-16 15:36 | PN ---
Subjective: The patient is feeling well. Has no new complaint. Objective: Vital Signs: Blood pressure 118/85, pulse 84, temperature 97.7. Heart: Regular rate and rhythm. Chest: Mild bilateral crackles significantly less than before. Abdomen: Soft, benign. Bowel sounds are active. Extremities: No edema. No cyanosis. Peripheral pulses are felt. Laboratory Data: The patient's white count 17.8, hemoglobin 10.8, hematocrit 199, BUN 132, creatinin e 1.2. Blood sugar fingersticks noted. Assessment/plan: 1.Right lung pneumonia. The patient is gradually improving. We will continue current antibiotic. The patient sepsis also has been controlled. 2.Type 2 diabetes. We will continue her on regular insulin sliding scale for now. 3.Blood culture, no growth to date. 4.Hypertension. We will add amlodipine to her medication regimen. We will consider lisinopril once this episode of pneumonia is controlled. The patient would not be coughing and confused with whethe r it is pneumonia or effect of medication. Look orders for details. MFS/MODL Voice ID: [id number] Report ID: [id number]
[2018-07-16] MEDS: ENOXAPARIN 30 MG/0.3 ML SQ SCH (17:10)
[2018-07-16] MEDS: AZITHROMYCIN 250 MG TAB PO SCH (17:10)
[2018-07-17 06:04] LABS: Absolute Lymphocytes (CBC) 1.7 K/uL (0.7-4.9); Absolute Neutrophil 10.7 K/uL (1.8-8.0); Basophils % 0.5 % (0-1.3); Eosinophils % 2.7 % (0-4.4); Hematocrit 31.5 % (36.0-45.0); Lymphocytes % 12.5 % (15.3-44.8); MCH 29.9 pg (27.0-35.0); Monocytes % 6.9 % (3.3-12.3); RBC Red Blood Cell Count 3.49 M/uL (3.86-4.86)
[2018-07-17 06:15] LABS: Potassium 3.9 mmol/L (3.5-5.1)
[2018-07-17] MEDS: CEFTRIAXONE/SWI 1gm 1 GM/10 ML SYR IV SCH (08:27)
[2018-07-17] MEDS: AMLODIPINE 5 MG TAB PO SCH (08:27)
[2018-07-17] MEDS: MAXZIDE (HCTZ 25/TRIAMTERENE 37.5MG) TAB PO SCH (08:28)
[2018-07-17] MEDS: INSULIN -REGULAR HUMAN 50 UNIT/0.5 ML ML SQ SCH ×4 (08:28→21:48)
[2018-07-17] MEDS: IPRATROPIUM BROM 0.5MG/2.5ML NEB PRN (08:46)
[2018-07-17] MEDS: ALBUTEROL 2.5 MG/3 ML NEB SOL NEB PRN (08:46)
[2018-07-17] MEDS ORDERED: [UNRECOGNIZED DRUG - REMARK] PO SCH (09:00)
[2018-07-17] MEDS ORDERED: POTASSIUM 25 MEQ EFFERV TAB PO ONE (09:00)
--- NOTE | 2018-07-17 10:36 | P.PN ---
Subjective Date of Service: 07/17/18 Chief Complaint: Pneumonia Subjective: Improving (Patient is clinically improving still short of breath) Review of Systems General: Weakness Respiratory: Shortness of Breath Physical Examination - Vital Signs Temperature: 97.7 F Blood Pressure: 170/77 Pulse: 78 Respirations: 22 Pulse Ox (%): 98 - Physical Exam General: Alert, Oriented x3 Respiratory: Crackles/rales (Crackles at the right base) Cardiovascular: No edema, Regular rate/rhythm Assessment & Plan - Problems (Diagnosis) (1) Pneumonia Current Visit: Yes Status: Acute Plan: Patient is 78 years of age admitted with right lower lobe pneumonia clinically improving white count is declining change to p.o. levofloxacin Dc Amleida catheter ambulate possible discharge in 1 or 2 days renal function is now normal patient's cultures are negative Qualifiers: Pneumonia type: due to unspecified organism Laterality: right
[2018-07-17] MEDS: levoFLOXacin 500 MG TAB PO SCH (12:09)
[2018-07-17] MEDS: ENOXAPARIN 30 MG/0.3 ML SQ SCH (16:50)
--- NOTE | 2018-07-17 17:28 | PN ---
Subjective: The patient is doing well, has no new complaints. Objective: Vital Signs: Blood pressure 150/60, pulse 64, temperature 97.5. Heart: Regular rate and rhythm. Chest: Mild bilateral crackles. Abdomen: Soft. Benign. Neurologic: Examination alert, oriented, grossly intact. Laboratory Data: Blood cultures, no growth to date. Urine culture, mixed alexx. White cell count d ropped down to 13.9, hemoglobin 10.5, hematocrit 31.5, platelets 210. Blood sugar fingersticks noted . BUN 22, creatinine 0.9, GFR 61. Assessment/plan: 1.Right lung pneumonia. Cultures nonrevealing. We will continue current antibiotics and breathing treatments and oxygen protocol. 2.Type 2 diabetes, clinically controlled on regular sliding scale. 3.Hypertension, better controlled with adding amlodipine. We will continue current treatment. Expe ct discharge in 1-2 days. MFS/MODL Voice ID: [id number] Report ID: [id number]
[2018-07-18 06:19] LABS: Potassium 4.2 mmol/L (3.5-5.1)
[2018-07-18] MEDS: INSULIN -REGULAR HUMAN 50 UNIT/0.5 ML ML SQ SCH ×4 (07:30→21:21)
[2018-07-18] MEDS: AMLODIPINE 5 MG TAB PO SCH (09:02)
[2018-07-18] MEDS: MAXZIDE (HCTZ 25/TRIAMTERENE 37.5MG) TAB PO SCH (09:02)
[2018-07-18] MEDS: levoFLOXacin 500 MG TAB PO SCH (09:02)
--- NOTE | 2018-07-18 13:38 | RAD REPORT ---
EXAM DESCRIPTION: RAD - Chest Pa And Lat (2 Views) - 07/18/2018 6:24 am CLINICAL HISTORY: Follow for pneumonia Chest pain. COMPARISON: Chest Single View dated 07/15/2018; Chest Single View dated 07/14/2018; Chest Single Vie w dated 07/13/2018; CHEST SINGLE VIEW dated 06/06/2013 FINDINGS: Mild improvement in posterior right lower lobe pneumonia is seen since the 07/15/2018 stud y. Small bilateral pleural effusions. The heart is normal in size. No displaced fractures. Right-side d venous catheter has tip in the right atrium. IMPRESSION: Mild improvement in posterior right lower lobe pneumonia since most recent comparative s tudy.
[2018-07-18] MEDS: ENOXAPARIN 30 MG/0.3 ML SQ SCH (16:30)
[2018-07-19 06:25] LABS: Phosphorus 3.5 mg/dL (2.5-4.9); Potassium 4.2 mmol/L (3.5-5.1)
[2018-07-19 06:26] LABS: Magnesium 1.4 mg/dL (1.8-2.4)
[2018-07-19] MEDS: Magnesium Sulfate 2gm IVPB 2 G/50 ML BAG IV ONE ×2 (06:48→08:59)
[2018-07-19] MEDS: INSULIN -REGULAR HUMAN 50 UNIT/0.5 ML ML SQ SCH ×4 (07:30→20:33)
[2018-07-19] MEDS: AMLODIPINE 5 MG TAB PO SCH (09:10)
[2018-07-19] MEDS: levoFLOXacin 500 MG TAB PO SCH (09:11)
[2018-07-19] MEDS: MAXZIDE (HCTZ 25/TRIAMTERENE 37.5MG) TAB PO SCH (09:13)
[2018-07-19 15:46] LABS: Arterial Blood Carboxyhemoglob 1.9 % (0-1.5); Blood Gas Oxyhemoglobin 89.5 % (94-97); Blood O2 Saturation 91.7 % (92-98.5)
--- NOTE | 2018-07-19 17:54 | PN ---
Subjective: The patient is doing well, has no new complaints. Objective: Vital Signs: Blood pressure 135/65, pulse 76, temperature 97.6, pulse oximetry on 2 L ox ygen nasal cannula at 94%. Heart: Regular rate and rhythm. Chest: Mild bilateral crackles. Abdomen: Soft. Benign. Neurologic: Alert, oriented, grossly intact. Extremities: No edema. No cyanosis. Assessment And Plan: 1.Right lobar pneumonia. The patient clinically stable. I think we will arrange for her to have ho me O2 and may be discharged tomorrow on home oxygen along with oral antibiotics. 2.Type 2 diabetes. Her blood sugar fingersticks noted. We will keep her on the current regimen of sliding scale. 3.Hypertension, controlled, but for electrolyte protocol, patient has low magnesium, she has been fulton pplemented. Look orders for details. MFS/MODL Voice ID: [id number] Report ID: [id number]
[2018-07-19] MEDS: ENOXAPARIN 30 MG/0.3 ML SQ SCH (17:59)
[2018-07-20] MEDS: INSULIN -REGULAR HUMAN 50 UNIT/0.5 ML ML SQ SCH ×3 (07:30→16:30)
[2018-07-20] MEDS: ACETAMINOPHEN 500 MG TAB PO PRN ×2 (08:13→14:15)
[2018-07-20] MEDS: levoFLOXacin 500 MG TAB PO SCH (08:13)
[2018-07-20] MEDS: AMLODIPINE 5 MG TAB PO SCH (08:13)
[2018-07-20] MEDS: MAXZIDE (HCTZ 25/TRIAMTERENE 37.5MG) TAB PO SCH (08:14)
--- NOTE | 2018-07-20 12:59 | P.PN ---
Subjective Date of Service: 07/19/18 Chief Complaint: Pneumonia Subjective: Improving (Patient is improving still short of breath was found to be hypoxic slight cough) Review of Systems General: Weakness Respiratory: Cough, Shortness of Breath Physical Examination - Vital Signs Temperature: 98.8 F Blood Pressure: 149/76 Pulse: 83 Respirations: 20 Pulse Ox (%): 94 - Physical Exam General: Alert, Oriented x3 HEENT: Atraumatic Neck: Supple Respiratory: Crackles/rales (And crackles in the right lower lobe Rossy) Cardiovascular: No edema, Regular rate/rhythm Assessment & Plan - Problems (Diagnosis) (1) Pneumonia Current Visit: Yes Status: Acute Plan: Patient is 78 years of age admitted with a right lower lobe pneumonia is doing better patient's white count is not declining blood gases show satisfactory oxygenation cultures are so far negative patient can be discharged home on levofloxacin follow up with me in 2 weeks Qualifiers: Pneumonia type: due to unspecified organism Laterality: right
[2018-07-20 13:50] VITALS: O2SAT 93
[2018-07-20] MEDS: ENOXAPARIN 30 MG/0.3 ML SQ SCH (17:00)
[2018-07-20 17:16] VITALS: BP 143/76; TEMP 98.3
--- NOTE | 2018-07-21 11:05 | DS ---
Date of Discharge: 07/20/2018 History Of Present Illness: A 78-year-old female, who was admitted to the hospital because of right lobar pneumonia along with sepsis. Past Medical History: As per admit note. Social History: As per admit note. Family History: As per admit note. Medications: As per admit note. Allergies: PER ADMIT NOTE. Physical Examination: As per admit note. Diagnostic Data: As per admit note. Hospital Course: The patient was admitted to the hospital. She was put on oxygen protocol, was put on IV Levaquin and Zithromax. Put on beta 2 agonist breathing treatments. Initially, the patient ki dney function showed also acute renal failure with volume depletion, improved with some IV fluids and an improvement in the general condition and controlling the sepsis. The patient blood cultures show ed no growth to date. However, her lactic acid was initially at 5.1, gradually dropped down and star mirella showing decrease. Dr. Mars has seen the patient with us on this. Meanwhile, with the patien t, also we monitored her blood sugar fingersticks and put her on regular insulin sliding scale and I stopped her metformin. The patient had to have a central line placement for IV treatment and we have to add for her amlodipine 5 mg for her high blood pressure. She also needed oxygen and her pneumoni a is involving the big portion of her right lung and she had hypoxia for which she is going to need h ome oxygen. So, at this point, the patient today is clinically stable. She had on telemetry short p eriod of paroxysmal atrial tachycardia, which has resolved. I think that was when the patient was sl eeping, induced by hypoxemia. Although she was on oxygen, but this may have not been placed right on her. Anyway, the patient has no consequence and she was hemodynamically stable. At this time, we t hink the patient is stable enough to be discharged if it is okay with Dr. Mars. We will discharg e her on oral Levaquin 500 mg for the next 7 days, on beta 2 agonist breathing treatment with ProAir. I have stopped the patient metformin for her diabetes and put her on glimepiride because the patien t showed evidence that when she got sick, her renal functions were compromised and at the same time h er lactic acid was high, so we want to avoid side effects with lactic acidosis from metformin also, s o I have changed her to glimepiride. Side effects with that medication also conveyed to the patient. We will follow up the patient closely as an outpatient and also we will follow up on her chest x-ra y for complete resolution of the pneumonia and if it is okay with Dr. Mars, we will go ahead and discharge the patient on the above-mentioned plan. Look discharge orders for details. KYLAH/MODMelissa Voice ID: [id number] Report ID: [id number]
== END 2018-07-20 17:40 | disposition home or self-care (01) | DRG 871 ==
LOC: ER 15:46 → ERHOLD 19:36 → 4TH 21:36
PROVIDERS: ADMIT Internal Medicine; ATTEND Internal Medicine
PROC: 05H533Z Insertion of Infusion Device into Right Subclavian Vein, Percutaneous Approach (ICD-10-PCS; principal; 2018-07-14 14:00)
DX: A41.9 Sepsis, unspecified organism (principal); J18.9 Pneumonia, unspecified organism; N17.9 Acute kidney failure, unspecified; I47.1 Supraventricular tachycardia; R65.20 Severe sepsis without septic shock; R09.02 Hypoxemia; E11.9 Type 2 diabetes mellitus without complications; I10 Essential (primary) hypertension; E83.42 Hypomagnesemia; Z85.3 Personal history of malignant neoplasm of breast; E86.9 Volume depletion, unspecified
CPT/HCPCS: 36415; 71045; 71046; 80048; 80076; 81001; 82805; 82947; 82962; 83605; 83735; 83880; 84100; 84484; 85025; 85610; 87040; 87070; 87086; 87088; 87205; 93005; 93970; 94640; 94760; 96365; 96367; 97163; 99285; J0696; J1650; J3475; J7030

== ENCOUNTER 2018-11-18 19:02 | Emergency (ER) | payer OTHER ==
[2018-11-18 20:22] LABS: Absolute Lymphocytes (CBC) 1.3 K/uL (0.7-4.9); Absolute Monocytes 0.7 K/uL (0.1-1.3); Absolute Neutrophil 5.7 K/uL (1.8-8.0); Basophils % 0.7 % (0-1.3); Eosinophils % 2.1 % (0-4.4); Hematocrit 35.5 % (36.0-45.0); Monocytes % 8.3 % (3.3-12.3); RBC Red Blood Cell Count 4.06 M/uL (3.86-4.86)
[2018-11-18 20:32] LABS: Protime INR 1.13
[2018-11-18 20:43] LABS: Albumin 3.2 g/dL (3.4-5.0); Bilirubin Direct 0.2 mg/dL (0-0.2); Bilirubin Total 0.8 mg/dL (0.2-1.0); Potassium 4.2 mmol/L (3.5-5.1); Protein, Total 7.8 g/dL (6.4-8.2); Troponin (Emerg Dept Use Only) 0.03 ng/mL (0.0-0.045)
[2018-11-18 20:45] LABS: Magnesium 1.4 mg/dL (1.8-2.4)
--- NOTE | 2018-11-18 21:08 | RAD REPORT ---
EXAM DESCRIPTION: RAD - Chest Single View - 11/18/2018 8:33 pm CLINICAL HISTORY: Dyspnea COMPARISON: September 13 TECHNIQUE: AP portable chest image was obtained 2022 . FINDINGS: Lung volumes are low. Portable technique, body habitus and shallow inspiration accentuate lung findings. Cardiomegaly is present. Vasculature is engorged. Interstitial markings are prominent. Trachea is midline. No measurable pleural effusion and no pneumothorax. No peripheral mass or consol idation. Bony degenerative changes are present. No acute aortic findings suspected. IMPRESSION: Mild to moderate CHF/ volume overload findings.
--- NOTE | 2018-11-18 22:33 | RAD REPORT ---
EXAM DESCRIPTION: US - Abdomen Exam Limited - 11/18/2018 9:52 pm CLINICAL HISTORY: Abdominal pain. COMPARISON: None. FINDINGS: The gallbladder wall is not thickened. A gallstone is not seen. The biliary tree is normal caliber. IMPRESSION: Unremarkable gallbladder ultrasound.
--- NOTE | 2018-11-18 23:36 | ER ---
Nurse's Notes [facility] Name: Dang Ovallse Age: 78 yrs Sex: Female : 1940 Arrival Date: 11/18/2018 Time: 19:06 Bed 7 Private MD: Paula Chamorro F Diagnosis: Chest pain, unspecified Presentation: 11/18 19:14 Presenting complaint: Patient states: "I feel like I can't hardly breathe and my hb stomach feels swollen and painful on the right side"; States normal amount of diarrhea, constipation; Denies any vomiting. Transition of care: patient was not received from another setting of care. Onset of symptoms was November 18, 2018. Risk Assessment: Do you want to hurt yourself or someone else? Patient reports no desire to harm self or others. Initial Sepsis Screen: Does the patient meet any 2 criteria? No. Patient's initial sepsis screen is negative. Does the patient have a suspected source of infection? No. Patient's initial sepsis screen is negative. Care prior to arrival: None. 19:14 Method Of Arrival: Wheelchair hb 19:14 Acuity: TATY 3 hb 19:20 Note Patient tolerating drinking coffee while in triage. hb Historical: - Allergies: 19:19 Tape; hb - Home Meds: 19:19 Unable to obtain [Active]; hb - PMHx: 19:19 Arthritis; breast cancer; Cellulitis; Diabetes - IDDM; lymphedema; hb - PSHx: 19:19 Lymph node removal from L side; hb - Immunization history:: Adult Immunizations up to date. - Social history:: Smoking status: Patient/guardian denies using tobacco. - Ebola Screening: : No symptoms or risks identified at this time. Screenin:20 Abuse screen: Denies threats or abuse. Denies injuries from another. Nutritional hb screening: No deficits noted. 20:13 Tuberculosis screening: No symptoms or risk factors identified. Fall Risk IV access (20 jd3 points). Ambulatory Aid- None/Bed Rest/Nurse Assist (0 pts). Gait- Normal/Bed Rest/Wheelchair (0 pts) Mental Status- Oriented to own ability (0 pts). Total Laguerre Fall Scale indicates No Risk (0-24 pts). Assessment: 20:00 General: Appears in no apparent distress. uncomfortable, Behavior is calm, cooperative, jd3 appropriate for age. Pain: Complains of pain in chest Quality of pain is described as aching. Neuro: Level of Consciousness is awake, alert, obeys commands, Oriented to person, place, time, situation, Appropriate for age. Cardiovascular: Heart tones present Capillary refill < 3 seconds Patient's skin is warm and dry. Respiratory: Reports shortness of breath at rest Airway is patent Respiratory effort is even, labored, Respiratory pattern is regular, symmetrical, Breath sounds are clear bilaterally. GI: No signs and/or symptoms were reported involving the gastrointestinal system. : No signs and/or symptoms were reported regarding the genitourinary system. EENT: No signs and/or symptoms were reported regarding the EENT system. Derm: Skin is intact, Skin is dry, Skin is normal, Skin temperature is warm. Musculoskeletal: Circulation, motion, and sensation intact. Range of motion: intact in all extremities. 20:52 Reassessment: Patient appears in no apparent distress at this time. Patient and/or jd3 family updated on plan of care and expected duration. Pain level reassessed. Patient is alert, oriented x 3, equal unlabored respirations, skin warm/dry/pink. 22:18 Reassessment: Patient appears in no apparent distress at this time. Patient and/or jd3 family updated on plan of care and expected duration. Pain level reassessed. Patient is alert, oriented x 3, equal unlabored respirations, skin warm/dry/pink. 23:11 Reassessment: Patient appears in no apparent distress at this time. Patient and/or jd3 family updated on plan of care and expected duration. Pain level reassessed. Patient is alert, oriented x 3, equal unlabored respirations, skin warm/dry/pink. 11/19 00:04 Reassessment: Patient appears in no apparent distress at this time. Patient and/or jd3 family updated on plan of care and expected duration. Pain level reassessed. Patient is alert, oriented x 3, equal unlabored respirations, skin warm/dry/pink. Vital Signs: 11/18 19:19 BP 186 / 85; Pulse 79; Resp 20; Temp 97.8(O); Pulse Ox 94% on R/A; Weight 90.72 kg; hb Height 4 ft. 8 in. (142.24 cm); Pain 6/10; 20:51 BP 179 / 62; Pulse 80; Resp 17 S; Pulse Ox 95% on R/A; jd3 22:17 BP 169 / 69; Pulse 82; Resp 18 S; Pulse Ox 95% on R/A; jd3 22:59 BP 166 / 66; Pulse 92; Resp 20; Pulse Ox 95% on R/A; mt 11/19 00:04 BP 156 / 63; Pulse 89; Resp 19 S; Pulse Ox 96% on R/A; jd3 11/18 19:19 Body Mass Index 44.84 (90.72 kg, 142.24 cm) hb ED Course: 11/18 19:06 Patient arrived in ED. es 19:06 Paula Chamorro MD is Private Physician. es 19:17 Triage completed. hb 19:17 Arm band placed on right wrist. hb 19:48 Demetrio Alexandre PA is PHCP. jr8 19:48 Harry Mcmanus MD is Attending Physician. jr8 19:51 Martínez Pyle RN is Primary Nurse. jd3 20:05 Inserted saline lock: 24 gauge in right hand, using aseptic technique. Blood collected. jd3 20:13 Patient has correct armband on for positive identification. Placed in gown. Bed in low jd3 position. Call light in reach. Side rails up X 1. Adult w/ patient. 20:34 XRAY Chest (1 view) In Process Unspecified. EDMS 21:53 US Abdomen Limited In Process Unspecified. EDMS 23:35 Ranulfo Mars MD is Referral Physician. jr8 11/19 00:03 No provider procedures requiring assistance completed. IV discontinued, intact, jd3 bleeding controlled, No redness/swelling at site. Pressure dressing applied. Administered Medications: No medications were administered Outcome: 11/18 23:35 Discharge ordered by . jr8 11/19 00:03 Discharged to home via wheelchair, with family. jd3 Condition: stable Discharge instructions given to patient, Instructed on discharge instructions, follow up and referral plans. Demonstrated understanding of instructions, follow-up care. 00:05 Patient left the ED. jd3 Signatures: Dispatcher [employer] EDMS Lily Romano Demetrio Alexandre PA PA jr8 Varsha Neri RN RN Yu Tafoya mt, Jonathon, RN RN jd3
--- NOTE | 2018-11-18 23:36 | EDPHYS ---
Physician Documentation [facility] Name: Dang Ovalles Age: 78 yrs Sex: Female : 1940 Arrival Date: 11/18/2018 Time: 19:06 Bed 7 Private MD: Paula Chamorro F ED Physician Harry Mcmanus HPI: 11/18 21:15 This 78 yrs old Female presents to ER via Wheelchair with complaints of jr8 PRESSURE AGAINST BREAST, ABD SWELLING. 21:15 Patient stated that she has abdominal pain and swelling feeling to right upper jr8 quadrant. Started yesterday. Denies n/v/d or fevers. 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 Severity of symptoms: At their worst the symptoms were moderate in the emergency department the symptoms are unchanged. The patient has not experienced similar symptoms in the past. The patient has not recently seen a physician. Historical: - Allergies: 19:19 Tape; hb - Home Meds: 19:19 Unable to obtain [Active]; hb - PMHx: 19:19 Arthritis; breast cancer; Cellulitis; Diabetes - IDDM; lymphedema; hb - PSHx: 19:19 Lymph node removal from L side; hb - Immunization history:: Adult Immunizations up to date. - Social history:: Smoking status: Patient/guardian denies using tobacco. - Ebola Screening: : No symptoms or risks identified at this time. ROS: 21:15 Eyes: Negative for injury, pain, redness, and discharge, ENT: Negative for injury, jr8 pain, and discharge, Neck: Negative for injury, pain, and swelling, Cardiovascular: Negative for chest pain, palpitations, and edema, Respiratory: Negative for shortness of breath, cough, wheezing, and pleuritic chest pain, Back: Negative for injury and pain, MS/Extremity: Negative for injury and deformity, Skin: Negative for injury, rash, and discoloration, Neuro: Negative for headache, weakness, numbness, tingling, and seizure. 21:15 Abdomen/GI: Positive for abdominal pain, Negative for nausea, vomiting, and diarrhea, abdominal cramps, abdominal distension, anorexia, dysphagia, hematemesis, black/tarry stool, rectal pain, rectal bleeding, bowel incontinence, flatulence. Exam: 21:15 Eyes: Pupils equal round and reactive to light, extra-ocular motions intact. Lids and jr8 lashes normal. Conjunctiva and sclera are non-icteric and not injected. Cornea within normal limits. Periorbital areas with no swelling, redness, or edema. ENT: Nares patent. No nasal discharge, no septal abnormalities noted. Tympanic membranes are normal and external auditory canals are clear. Oropharynx with no redness, swelling, or masses, exudates, or evidence of obstruction, uvula midline. Mucous membranes moist. Neck: Trachea midline, no thyromegaly or masses palpated, and no cervical lymphadenopathy. Supple, full range of motion without nuchal rigidity, or vertebral point tenderness. No Meningismus. Cardiovascular: Regular rate and rhythm with a normal S1 and S2. No gallops, murmurs, or rubs. Normal PMI, no JVD. No pulse deficits. Respiratory: Lungs have equal breath sounds bilaterally, clear to auscultation and percussion. No rales, rhonchi or wheezes noted. No increased work of breathing, no retractions or nasal flaring. Back: No spinal tenderness. No costovertebral tenderness. Full range of motion. Skin: Warm, dry with normal turgor. Normal color with no rashes, no lesions, and no evidence of cellulitis. MS/ Extremity: Pulses equal, no cyanosis. Neurovascular intact. Full, normal range of motion. Neuro: Awake and alert, GCS 15, oriented to person, place, time, and situation. Cranial nerves II-XII grossly intact. Motor strength 5/5 in all extremities. Sensory grossly intact. Cerebellar exam normal. Normal gait. 21:15 Abdomen/GI: Inspection: obese Bowel sounds: active, all quadrants, Palpation: soft, in all quadrants, moderate abdominal tenderness, in the right upper quadrant, mass, is not appreciated, rebound tenderness, is not appreciated, voluntary guarding, is not appreciated, involuntary guarding, is not appreciated, no appreciated organomegaly, Indicators: McBurney's point is not tender, Jones's sign is positive, Rovsing's sign is negative. Vital Signs: 19:19 BP 186 / 85; Pulse 79; Resp 20; Temp 97.8(O); Pulse Ox 94% on R/A; Weight 90.72 kg; hb Height 4 ft. 8 in. (142.24 cm); Pain 6/10; 20:51 BP 179 / 62; Pulse 80; Resp 17 S; Pulse Ox 95% on R/A; jd3 22:17 BP 169 / 69; Pulse 82; Resp 18 S; Pulse Ox 95% on R/A; jd3 22:59 BP 166 / 66; Pulse 92; Resp 20; Pulse Ox 95% on R/A; mt 11/19 00:04 BP 156 / 63; Pulse 89; Resp 19 S; Pulse Ox 96% on R/A; jd3 11/18 19:19 Body Mass Index 44.84 (90.72 kg, 142.24 cm) hb MDM: 11/18 19:48 Patient medically screened. [facility] 23:32 Data reviewed: vital signs, nurses notes, old medical records, lab test result(s), EKG, [facility] radiologic studies, plain films, and as a result, I will discharge patient. Data interpreted: Pulse oximetry: on room air is 95 %. Interpretation: acceptable. Counseling: I had a detailed discussion with the patient and/or guardian regarding: the historical points, exam findings, and any diagnostic results supporting the discharge/admit diagnosis, lab results, radiology results, the need for outpatient follow up, a fleet driver, to return to the emergency department if symptoms worsen or persist or if there are any questions or concerns that arise at home. ED course: Patient feeling better. No new acute findings on labs or imaging. Compared CT and other Images in past to today. Consistent with what has been shown in past. Worrisome for possible sarcoidosis. Has pulmonary f/u next week. Patient wants to try to rest at home for now. Patient has home oxygen that she can utilize. Knows to come back if worse . 11/18 19:48 Order name: Basic Metabolic Panel [facility] 11/18 19:48 Order name: CBC with Diff; Complete Time: 20:24 [facility] 11/18 19:48 Order name: LFT's; Complete Time: 21: [facility] 11/18 19:48 Order name: Magnesium; Complete Time: 21: [facility] 11/18 19:48 Order name: NT PRO-BNP; Complete Time: 21:33 [facility] 11/18 19:48 Order name: PT-INR; Complete Time: 21: [facility] 11/18 19:48 Order name: Troponin (emerg Dept Use Only); Complete Time: 21: 8 11/18 19:48 Order name: XRAY Chest (1 view); Complete Time: 21: jr8 11/18 19:48 Order name: EKG; Complete Time: 19:49 jr8 11/18 19:48 Order name: Cardiac monitoring; Complete Time: 20:11 jr8 11/18 19:48 Order name: EKG - Nurse/Tech; Complete Time: 20: jr8 11/18 19:48 Order name: Lipase; Complete Time: 21: jr8 11/18 19:49 Order name: Basic Metabolic Panel; Complete Time: 21:33 [facility] 11/18 20:32 Order name: US Abdomen Limited; Complete Time: 23: 8 11/18 19:48 Order name: IV Saline Lock; Complete Time: 20: 8 11/18 19:48 Order name: Labs collected and sent; Complete Time: 20: 8 11/18 19:48 Order name: O2 Per Protocol; Complete Time: 20: 8 11/18 19:48 Order name: O2 Sat Monitoring; Complete Time: 20: 8 Administered Medications: No medications were administered Disposition: 11/18/18 23:35 Discharged to Home. Impression: Chest pain, unspecified. - Condition is Stable. - Discharge Instructions: Nonspecific Chest Pain, Sarcoidosis. - Medication Reconciliation Form, Thank You Letter, Antibiotic Education, Prescription Opioid Use form. - Follow up: Ranulfo Mars MD; When: 1 week; Reason: Recheck today's complaints, Continuance of care, Re-evaluation by your physician. - Problem is new. - Symptoms have improved. Signatures: Dispatcher [employer] [facility] Demetrio Alexandre PA PA jr8 Varsha Neri RN RN Martínez Hendrix RN RN jd3 Corrections: (The following items were deleted from the chart) 11/19 00:05 11/18 23:35 11/18/2018 23:35 Discharged to Home. Impression: Chest pain, unspecified. jd3 Condition is Stable. Forms are Medication Reconciliation Form, Thank You Letter, Antibiotic Education, Prescription Opioid Use. Follow up: Ranulfo Mars; When: 1 week; Reason: Recheck today's complaints, Continuance of care, Re-evaluation by your physician. Problem is new. Symptoms have improved. jr8
[2018-11-19 01:31] VITALS: TEMP 97.8
[2018-11-19 01:36] VITALS: BP 156/63; O2SAT 96
--- NOTE | 2018-11-19 06:07 | EKG ---
Test Date: 2018-11-18 Test Time: 20:11:31 Bread Packer: TYREE MEASUREMENT RESULTS: Intervals: Rate: 85 LA: 152 QRSD: 92 QT: 366 QTc: 435 [place]: P: 36 LA: 152 QRS: -25 T: 58 INTERPRETIVE STATEMENTS: Normal sinus rhythm Minimal voltage criteria for LVH, may be normal variant Septal infarct, age undetermined Abnormal ECG Compared to ECG 07/13/2018 17:34:46 Left ventricular hypertrophy now present Incomplete right bundle-branch block no longer present Myocardial infarct finding still present Electronically Signed On 11-19-18 06:07:11 CDT by Jarvis Mackey
== END 2018-11-19 00:05 | disposition home or self-care (01) ==
LOC: ER 19:02
DX: R07.9 Chest pain, unspecified (principal); Z91.048 Other nonmedicinal substance allergy status; Z85.3 Personal history of malignant neoplasm of breast
CPT/HCPCS: 36415; 71045; 76705; 80048; 80076; 83690; 83735; 83880; 84484; 85025; 85610; 93005; 99284

== ENCOUNTER 2020-06-21 16:53 | Observation (INO) | payer OTHER ==
--- NOTE | 2020-06-21 17:56 | RAD REPORT ---
EXAM DESCRIPTION: RAD - Chest Single View - 06/21/2020 5:45 pm CLINICAL HISTORY: shortness of breath COMPARISON: Portable October 2018 TECHNIQUE: AP portable chest image was obtained 06/21/2020 5:45 pm . FINDINGS: No peripheral mass or consolidation. Interstitial markings are prominent throughout the ch est slightly less pronounced than seen previously. Cardiomegaly and vascular engorgement are present. Trachea is midline. No pneumothorax present. No large pleural effusion. No acute bony abnormality se en. No acute aortic findings suspected. IMPRESSION: Mild CHF/volume overload pattern less pronounced than seen October 2018.
[2020-06-21] MEDS ORDERED: ALBUTEROL 2.5 MG/3 ML NEB SOL ONE (18:08)
[2020-06-21 18:15] LABS: Protime INR 1.07
[2020-06-21 18:19] LABS: Absolute Lymphocytes (CBC) 1.5 K/uL (0.7-4.9); Basophils % 0.8 % (0-1.3); Hematocrit 33.3 % (36.0-45.0); Lymphocytes % 20.3 % (15.3-44.8); MPV 8.9 fL (7.6-11.3); RBC Red Blood Cell Count 3.75 M/uL (3.86-4.86)
[2020-06-21 18:33] LABS: ALT/SGPT 17 U/L (12-78); AST/SGOT 17 U/L (15-37); Albumin 2.9 g/dL (3.4-5.0); Alkaline Phosphatase 82 U/L (45-117); BUN Blood Urea Nitrogen 26 mg/dL (7-18); Bicarbonate 28 mmol/L (21-32); Bilirubin Direct 0.2 mg/dL (0-0.2); Bilirubin Total 0.6 mg/dL (0.2-1.0); Glucose Level 194 mg/dL (74-106); Magnesium 1.5 mg/dL (1.8-2.4); NT PRO-BNP 882 pg/mL (<450); Potassium 5.2 mmol/L (3.5-5.1); Sodium Level 140 mmol/L (136-145); Troponin (Emerg Dept Use Only) < 0.02 ng/mL (0.0-0.045)
[2020-06-21] MEDS ORDERED: Magnesium Sulfate 2gm IVPB 2 G/50 ML BAG IV ONE (20:08)
[2020-06-21] MEDS ORDERED: FUROSEMIDE 40 MG/4 ML VIAL ONE (20:08)
--- NOTE | 2020-06-21 20:08 | EDPHYS ---
Physician Documentation [facility] Name: Dang Ovalles Age: 80 yrs Sex: Female : 1940 Arrival Date: 06/21/2020 Time: 17:01 Bed 18 Private MD: ED Physician Juan Mcneil HPI: 06/21 18:09 This 80 yrs old Female presents to ER via Wheelchair with complaints of jmm Shortness Of Breath. 18:09 The patient has shortness of breath with light activity. Onset: The symptoms/episode jmm began/occurred gradually, 2 week(s) ago. Duration: The symptoms are continuous. The patient's shortness of breath is aggravated by eating. Associated signs and symptoms: Pertinent negatives: non-productive cough, productive cough, fever, vomiting. This is a 80 year old female with a history of DM, lymphedema that presents to the ED with complaints of shortness of breath which has progressively worsened over the past 2 weeks. Worsened with exertion. Denies history of CHF or COPD. Denies fever. . Historical: - Allergies: 17:07 Tape; sv - PMHx: 17:07 Arthritis; breast cancer; Cellulitis; Diabetes - IDDM; lymphedema; sv - PSHx: 17:07 Lymph node removal from L side; sv - Immunization history:: Adult Immunizations up to date. - Social history:: Smoking status: unknown. ROS: 18:09 Constitutional: Negative for fever, chills, and weight loss, Cardiovascular: Negative jmm for chest pain, palpitations, and edema. 18:09 Respiratory: Positive for shortness of breath. 18:09 All other systems are negative. Exam: 18:09 Constitutional: This is a well developed, well nourished patient who is awake, alert, jmm and in no acute distress. Head/Face: atraumatic. Eyes: EOMI, no conjunctival erythema appreciated ENT: Moist Mucus Membranes Neck: Trachea midline, Supple Chest/axilla: Normal chest wall appearance and motion. Cardiovascular: Regular rate and rhythm. No edema appreciated Respiratory: Normal respirations, no respiratory distress appreciated Abdomen/GI: Non distended, soft Back: Normal ROM Skin: General appearance color normal 18:09 Musculoskeletal/extremity: lymphedema noted bilaterally. 18:09 Skin: Appearance: Color: normal in color. 18:09 Neuro: Orientation: is normal, Mentation: is normal, Memory: is normal. 18:09 Psych: Behavior/mood is pleasant, cooperative. Vital Signs: 17:17 BP 187 / 62; Pulse 85; Resp 32; Temp 98.4; Pulse Ox 98% ; Weight 95.25 kg; Height 4 ft. sv 8 in. (142.24 cm); 17:44 BP 187 / 62; Pulse 81; Resp 16; Pulse Ox 100% on R/A; em 18:42 BP 186 / 72; Pulse 72; Resp 17; Pulse Ox 98% on R/A; em 19:28 BP 176 / 66; Pulse 77; Resp 18; Pulse Ox 99% ; ea 21:42 BP 150 / 70; Pulse 70; Resp 18; Pulse Ox 98% ; ea 17:17 Body Mass Index 47.08 (95.25 kg, 142.24 cm) sv MDM: 17:39 Patient medically screened. [facility] 20:05 Data reviewed: vital signs, nurses notes. Counseling: I had a detailed discussion with arturo the patient and/or guardian regarding: the historical points, exam findings, and any diagnostic results supporting the discharge/admit diagnosis, radiology results, the need for further work-up and treatment in the hospital. ED course: I discussed the patient with Dr. Ibarra whom recommended observation with echo. . 06/21 17:26 Order name: Basic Metabolic Panel; Complete Time: 18:44 [facility] 06/21 17:26 Order name: CBC with Diff; Complete Time: 18:27 [facility] 06/21 17:26 Order name: LFT's; Complete Time: 18:44 [facility] 06/21 17:26 Order name: Magnesium; Complete Time: 18:44 [facility] 06/21 17:26 Order name: NT PRO-BNP; Complete Time: 18:44 [facility] 06/21 17:26 Order name: PT-INR; Complete Time: 18:27 [facility] 06/21 17:26 Order name: Troponin (emerg Dept Use Only); Complete Time: 18:44 [facility] 06/21 20:30 Order name: Basic Metabolic Panel EDMN 06/21 20:30 Order name: Basic Metabolic Panel [facility] 06/21 20:30 Order name: CBC with Automated Diff EDMS 06/21 20:30 Order name: CBC with Automated Diff EDMN 06/21 20:30 Order name: NT PRO-BNP [facility] 06/21 20:30 Order name: NT PRO-BNP [facility] 06/21 20:30 Order name: Troponin I [facility] 06/21 17:26 Order name: XRAY Chest (1 view); Complete Time: 17:59 [facility] 06/21 17:26 Order name: EKG; Complete Time: 17:26 [facility] 06/21 17:26 Order name: Cardiac monitoring; Complete Time: 17:42 [facility] 06/21 17:26 Order name: EKG - Nurse/Tech; Complete Time: 17:42 [facility] 06/21 17:26 Order name: IV Saline Lock; Complete Time: 17:52 [facility] 06/21 17:26 Order name: Labs collected and sent; Complete Time: 17:42 [facility] 06/21 19:48 Order name: CT Chest Wo Con; Complete Time: 20:34 [facility] 06/21 20:30 Order name: Low Sodium [facility] 06/21 20:30 Order name: Echo without Doppler (2D) [facility] 06/21 20:30 Order name: Troponin I [facility] 06/21 20:30 Order name: Troponin I [facility] 06/21 20:52 Order name: COVID-19 06/21 21:13 Order name: CORONAVIRUS [facility] 06/21 17:26 Order name: O2 Per Protocol; Complete Time: 17:52 [facility] 06/21 17:26 Order name: O2 Sat Monitoring; Complete Time: 17:42 jm Administered Medications: 17:59 Drug: Albuterol 2.5 mg Route: Inhalation; em 19:50 Drug: Magnesium Sulfate 1 grams Route: IVPB; Infused Over: 1 hrs; Site: left ea antecubital; 21:00 Follow up: Response: No adverse reaction; IV Status: Completed infusion ea 20:35 Drug: Lasix 40 mg Route: IVP; Site: left antecubital; ea 21:35 Follow up: Response: No adverse reaction ea Disposition: 20:05 Chart complete. [facility] 06/22 15:58 Co-signature as Attending Physician, Juan Mcneil MD I agree with the assessment and kdr plan of care. Disposition: 06/21/20 20:07 Hospitalization ordered by Paula Chamorro for Observation. Preliminary diagnosis are Dyspnea, unspecified, Systolic (congestive) heart failure, Diastolic (congestive) heart failure. - Bed requested for Telemetry/MedSurg (observation). - Status is Observation. ea - Condition is Stable. - Problem is new. - Symptoms are unchanged. Signatures: Dispatcher [employer] EDaCrine Cervantes, RN RN Juan Floyd MD MD [facility] David Hastings PA PA [facility] Santos Garcia, RN REYES Haylie Forbes RN RN Lissette Gutierrez RN RN ea Corrections: (The following items were deleted from the chart) 06/21 20:55 20:07 Hospitalization Ordered by Paula Chamorro MD for Observation. Preliminary cg diagnosis is Dyspnea, unspecified; Systolic (congestive) heart failure; Diastolic (congestive) heart failure. Bed requested for Telemetry/MedSurg (observation). Status is Observation. Condition is Stable. Problem is new. Symptoms are unchanged. [facility] 21:49 20:55 06/21/2020 20:07 Hospitalization Ordered by Paula Chamorro MD for Observation. ea Preliminary diagnosis is Dyspnea, unspecified; Systolic (congestive) heart failure; Diastolic (congestive) heart failure. Bed requested for Telemetry/MedSurg (observation). Status is Observation. Condition is Stable. Problem is new. Symptoms are unchanged. cg
--- NOTE | 2020-06-21 20:08 | ER ---
Nurse's Notes [facility] Name: Dang Ovalles Age: 80 yrs Sex: Female : 1940 Arrival Date: 06/21/2020 Time: 17:01 Bed 18 Private MD: Diagnosis: Dyspnea, unspecified;Systolic (congestive) heart failure;Diastolic (congestive) heart failure Presentation: 06/21 17:07 Risk Assessment: Do you want to hurt yourself or someone else? Patient reports no sv desire to harm self or others. 17:07 Method Of Arrival: Wheelchair sv 17:17 Chief complaint: Patient states: SOB that has been ongoing but reports it has been sv getting worse. Coronavirus screen: Client denies travel out of the [place] in the last 14 days. shortness of breath, Client presents with at least one sign or symptom that may indicate coronavirus-19. Standard/surgical mask placed on the client. Provider contacted for isolation considerations. Ebola Screen: No symptoms or risks identified at this time. Initial Sepsis Screen: Does the patient meet any 2 criteria? RR > 20 per min. No. Patient's initial sepsis screen is negative. Does the patient have a suspected source of infection? No. Patient's initial sepsis screen is negative. Onset of symptoms is unknown. 17:17 Acuity: TATY 2 sv Triage Assessment: 17:19 General: Appears in no apparent distress. Behavior is calm, cooperative. Pain: Denies sv pain. Neuro: Level of Consciousness is awake, alert, obeys commands. Respiratory: Reports shortness of breath at rest on exertion Respiratory effort is even, labored, Respiratory pattern is tachypnea Onset: The symptoms/episode began/occurred at an unknown time. the patient has mild shortness of breath. Historical: - Allergies: 17:07 Tape; sv - PMHx: 17:07 Arthritis; breast cancer; Cellulitis; Diabetes - IDDM; lymphedema; sv - PSHx: 17:07 Lymph node removal from L side; sv - Immunization history:: Adult Immunizations up to date. - Social history:: Smoking status: unknown. Screenin:45 Abuse screen: Denies threats or abuse. Nutritional screening: No deficits noted. em Tuberculosis screening: No symptoms or risk factors identified. Fall Risk IV access (20 points). Ambulatory Aid- Crutches/Cane/Walker (15 pts). Gait- Weak (10 pts.). Mental Status- Oriented to own ability (0 pts). Total Laguerre Fall Scale indicates High Risk Score (45 or more points). Fall prevention measures have been instituted. Side Rails Up X 2 Placed Close to Nursing Station. Assessment: 17:04 Reassessment: Pt currently in the bathroom. sv 17:35 Reassessment: reports she is a hard stick, had one unsuccessful IV attempt on right arm.em 17:45 Reassessment: pt had a mastectomy in 1988 on the left side, Dr. Mcneil notified, Dr. joyce Mcneil approved IV in the left arm, pt tolerated well. 17:46 Cardiovascular: Rhythm is. Respiratory: Airway is patent Respiratory effort is even, em shallow, Respiratory pattern is Breath sounds with wheezes. GI: No signs and/or symptoms were reported involving the gastrointestinal system. : No signs and/or symptoms were reported regarding the genitourinary system. EENT: No signs and/or symptoms were reported regarding the EENT system. Derm: Skin is intact, Skin is dry, Skin is pink, warm \T\ dry. Skin temperature is warm. 18:43 Reassessment: Patient and/or family updated on plan of care and expected duration. Pain em level reassessed. Patient is alert, oriented x 3, equal unlabored respirations, skin warm/dry/pink. pt resting after completing breathing treatment, states she is feel a little less SOB, SPO2 still steady at 98% RA. 19:00 Musculoskeletal: Circulation, motion, and sensation intact. Range of motion: limited in ll2 limited in both legs due tp PMHX or lymphodema. 19:28 General: Appears in no apparent distress. Behavior is appropriate for age. Pain: Denies ea pain. Neuro: Level of Consciousness is awake, alert, obeys commands, Oriented to person, place, time. Cardiovascular: Patient's skin is warm and dry. Respiratory: Airway is patent Respiratory effort is even, unlabored, Respiratory pattern is regular, symmetrical. Derm: Skin is pink, warm \T\ dry. 20:28 Reassessment: Patient and/or family updated on plan of care and expected duration. Pain ea level reassessed. Patient is alert, oriented x 3, equal unlabored respirations, skin warm/dry/pink. Pt returned from CT. 21:07 Reassessment: Patient and/or family updated on plan of care and expected duration. Pain ea level reassessed. Patient is alert, oriented x 3, equal unlabored respirations, skin warm/dry/pink. 21:41 Reassessment: Patient and/or family updated on plan of care and expected duration. Pain ea level reassessed. Patient is alert, oriented x 3, equal unlabored respirations, skin warm/dry/pink. Report called to receiving nurse on second floor. 21:48 Reassessment: Patient and/or family updated on plan of care and expected duration. Pain ea level reassessed. Patient is alert, oriented x 3, equal unlabored respirations, skin warm/dry/pink. Pt admitted to second floor, left ED via stretcher per tech. Pt tolerating well. Vital Signs: 17:17 BP 187 / 62; Pulse 85; Resp 32; Temp 98.4; Pulse Ox 98% ; Weight 95.25 kg; Height 4 ft. sv 8 in. (142.24 cm); 17:44 BP 187 / 62; Pulse 81; Resp 16; Pulse Ox 100% on R/A; em 18:42 BP 186 / 72; Pulse 72; Resp 17; Pulse Ox 98% on R/A; em 19:28 BP 176 / 66; Pulse 77; Resp 18; Pulse Ox 99% ; ea 21:42 BP 150 / 70; Pulse 70; Resp 18; Pulse Ox 98% ; ea 17:17 Body Mass Index 47.08 (95.25 kg, 142.24 cm) sv ED Course: 17:01 Patient arrived in ED. ds1 17:07 Arm band placed on. sv 17:14 David Hastings PA is PHCP. jmm 17:14 Juan Mcneil MD is Attending Physician. jm 17:18 Triage completed. sv 17:19 Santso Garcia, RN is Primary Nurse. em 17:35 Missed attempt(s): 22 gauge in right forearm. Bleeding controlled, band aid applied, em catheter tip intact. 17:45 XRAY Chest (1 view) In Process Unspecified. EDMS 17:45 Initial lab(s) drawn, by me, sent to lab. Inserted saline lock: 20 gauge in left em antecubital area, using aseptic technique. Blood collected. 17:46 Patient has correct armband on for positive identification. Bed in low position. Call em light in reach. Side rails up X2. pvc monitor on. Pulse ox on. NIBP on. 20:06 Paula Chamorro MD is Hospitalizing Provider. [facility] 20:20 CT Chest Wo Con In Process Unspecified. EDMS 21:07 No provider procedures requiring assistance completed. Patient admitted, IV remains in ea place. Administered Medications: 17:59 Drug: Albuterol 2.5 mg Route: Inhalation; em 19:50 Drug: Magnesium Sulfate 1 grams Route: IVPB; Infused Over: 1 hrs; Site: left ea antecubital; 21:00 Follow up: Response: No adverse reaction; IV Status: Completed infusion ea 20:35 Drug: Lasix 40 mg Route: IVP; Site: left antecubital; ea 21:35 Follow up: Response: No adverse reaction ea Outcome: 20:07 Decision to Hospitalize by Provider. [facility] 21:07 Condition: stable ea 21:07 Instructed on the need for admit. 21:43 Admitted to Med/surg accompanied by tech, room 216, with chart, Report called to ea Receiving nurse on second floor 21:49 Patient left the ED. ea Signatures: Dispatcher [employer] Carine Banks, RN David Bell PA PA [facility] Santos Garcia, RN RN Constance Samano ds1 Lissette Gutierrez RN RN ea Linscombe, Lacie, RN RN ll2 Corrections: (The following items were deleted from the chart) 19:01 17:46 Musculoskeletal: Circulation, motion, and sensation intact. Capillary refill is > ll2 3 seconds, Range of motion: limited in cellulitis bilateral in both legs em
[2020-06-21] MEDS ORDERED: IPRATROPIUM BROM 0.5MG/2.5ML NEB PRN (20:28)
[2020-06-21] MEDS ORDERED: ONDANSETRON 4 MG/2 ML VIAL IV PRN (20:28)
[2020-06-21] MEDS ORDERED: ALBUTEROL 2.5 MG/3 ML NEB SOL NEB PRN (20:28)
--- NOTE | 2020-06-21 20:28 | RAD REPORT ---
EXAM DESCRIPTION: CT - Thorax Wo Con - 06/21/2020 8:20 pm CLINICAL HISTORY: sob COMPARISON: Thorax Wo Con dated 11/02/2018; Chest Single View dated 06/21/2020 TECHNIQUE: Axial 5 mm thick images of the chest were obtained without IV contrast. All CT scans are performed using dose optimization technique as appropriate and may include automated exposure control or mA/KV adjustment according to patient size. FINDINGS: Chronic interstitial opacification is present. This is more prominent in the anterior mid chest. This left midchest fibrotic stranding is secondary to left breast radiation therapy. Chronic c ongestion and edema changes are evident in the left breast and adjacent fatty tissues. Overall interstitial opacification is present. Ground-glass opacity seen October 2018 are not seen the current examination. No pleural thickening or pleural effusion. No pneumothorax. Hilar fullness is present difficult to fully assess in the absence of contrast. Mediastinal lymph nod es are similar to the comparison. No gross aortic or pulmonary artery finding suspected. Cardiomegal y is present. No pericardial effusion. No chest wall mass. No new or progressive axillary lymphadenopathy. IMPRESSION: Cardiomegaly and interstitial opacification are present much of this being chronic. Mild failure/ volume overload are certainly possible.
[2020-06-21 23:37] VITALS: BMI 48.4
[2020-06-22 06:32] LABS: Absolute Lymphocytes (CBC) 1.4 K/uL (0.7-4.9); Basophils % 0.9 % (0-1.3); Hematocrit 31.6 % (36.0-45.0); Lymphocytes % 20.1 % (15.3-44.8); MPV 9.1 fL (7.6-11.3); RBC Red Blood Cell Count 3.58 M/uL (3.86-4.86)
[2020-06-22 06:46] LABS: Potassium 4.2 mmol/L (3.5-5.1)
[2020-06-22] MEDS ORDERED: D50W 25 GM/50 ML SYRINGE/VIAL IV PRN (07:48)
[2020-06-22] MEDS ORDERED: GLUCAGON 1 MG/VIAL IM PRN (07:48)
[2020-06-22] MEDS: FUROSEMIDE 20 MG/ 2ML VIAL IV SCH ×2 (08:32→16:35)
[2020-06-22] MEDS: INSULIN -REGULAR HUMAN 50 UNIT/0.5 ML ML SQ SCH ×4 (08:32→20:50)
--- NOTE | 2020-06-22 10:44 | EKG ---
Test Date: 2020-06-21 Test Time: 17:23:06 [employer] Operator: ANGIE MEASUREMENT RESULTS: Intervals: Rate: 74 [place]: QRSD: 72 QT: 364 QTc: 404 [place]: P: [place]: QRS: -34 T: 13 INTERPRETIVE STATEMENTS: Accelerated Junctional rhythm Left axis deviation Minimal voltage criteria for LVH, may be normal variant Nonspecific ST abnormality Abnormal ECG Compared to ECG 11/18/2018 20:11:31 Accelerated junctional rhythm now present Left-axis deviation now present ST (T wave) deviation now present Sinus rhythm no longer present Myocardial infarct finding no longer present Electronically Signed On 06-22-20 10:43:32 CDT by Cameron Peterson
--- NOTE | 2020-06-22 12:18 | HP ---
Date of Admission: 06/21/2020 History Of Present Illness: The patient is a 80-year-old female who has been having increased shortn ess of breath over the past 2 weeks until she became short of breath as she walked from her bedroom t o the bathroom. In the Emergency Room, her workup showed that the patient had congestive heart failu re systolic and she was admitted for that. The patient had no nausea, no vomiting. She had chronic lymphedema in both her lower extremities. She has noticed recently a little bit more swelling on bot h. Review of Systems: Respiratory: As above. Cardiovascular: No complaints. Genitourinary: No complaints. Skeletomuscular: No complaint. Neurological: No complaint. Gastrointestinal: No complaints. Past Medical History: 1.Hypertension. 2.Hyperlipidemia. 3.Chronic lymphedema with recurrent cellulitis in her legs. 4.Type 2 diabetes mellitus. Social History: No smoking, alcohol, or drug abuse history. Family History: Noncontributing. Medications: Include spironolactone 25 mg p.o. daily, Fosamax 70 mg p.o. weekly, Atorvastatin 10 mg p.o. daily, Tresiba 30 units subcutaneous daily, lisinopril 20 mg p.o. daily, ranitidine 150 mg p.o. daily. Allergies: ADHESIVE TAPES. Physical Examination: Vital Signs: Blood pressure 160/70, pulse 75, temperature 97.7. Heart: Regular rate and rhythm. Chest: Clear to auscultation. Abdomen: Soft, nontender. No hepatosplenomegaly. Bowel sounds are normoactive. Extremities: Bilateral chronic lymphedema. Neurological: Alert, oriented, nonfocal. Grossly intact. Laboratory Data: CBC; hemoglobin 10.6, hematocrit 31.6, platelets 176. PT/INR noted. Chemistry; ch loride 108, BUN 27, creatinine 1.19, GFR 44. Blood sugar fingersticks noted. Magnesium 1.6. BNP 11 66. Diagnostic Data: Chest x-ray is mild CHF. Electrocardiogram showed junctional rhythm and nonspecifi c ST-T wave abnormality. On chest CT, cardiomegaly, no acute pathology. Assessment And Plan: 1.Acute systolic congestive heart failure, likely causing patient's shortness of breath. Being admi tted for bedrest, salt restriction and will order an echo and she was put on IV Lasix. 2.Junctional rhythm. Arrhythmia may have aided in the patient of feeling of shortness of breath. Yulissa castaneda will ask Cardiology opinion about that. 3.We will continue her medications for her diabetes and other chronic medical illnesses. Her pulse oximetry on room air was above 90%. Expect discharge in 1-2 days. Look orders for details. KYLAH/MODL Voice ID: [id number]
[2020-06-22] MEDS ORDERED: ATORVASTATIN 10 MG TAB PO SCH (21:00)
[2020-06-23 06:18] LABS: Absolute Lymphocytes (CBC) 1.8 K/uL (0.7-4.9); Basophils % 0.5 % (0-1.3); Hematocrit 32.5 % (36.0-45.0); Lymphocytes % 25.6 % (15.3-44.8); MPV 9.2 fL (7.6-11.3); RBC Red Blood Cell Count 3.71 M/uL (3.86-4.86)
[2020-06-23 06:39] LABS: Potassium 4.3 mmol/L (3.5-5.1)
[2020-06-23] MEDS: INSULIN -REGULAR HUMAN 50 UNIT/0.5 ML ML SQ SCH ×2 (07:30→11:45)
[2020-06-23] MEDS: FUROSEMIDE 20 MG/ 2ML VIAL IV SCH (08:36)
[2020-06-23] MEDS ORDERED: lisinopriL 20 MG TAB PO SCH (09:00)
[2020-06-23] MEDS ORDERED: INSULIN DEGLUDEC 30 UNIT SQ SCH (09:00)
[2020-06-23] MEDS ORDERED: FAMOTIDINE 20 MG TAB PO SCH (09:00)
[2020-06-23 11:10] VITALS: O2SAT 100
[2020-06-23] MEDS ORDERED: Magnesium Sulfate 2gm IVPB 2 G/50 ML BAG IV ONE (11:59)
[2020-06-23 12:31] VITALS: TEMP 97.4
[2020-06-23 13:41] VITALS: BP 142/58
--- NOTE | 2020-06-23 15:10 | CON ---
Date of Consultation: 06/22/2020 Reason For Consultation: Shortness of breath and possible congestive heart failure. History Of Present Illness: Ms. Ovalles is a 80-year-old woman, has a history of diabetes, lymphedem a, breast cancer, nonhealing wound that [facility] and came in with shortne ss of breath. Chest x-ray shows CHF. CT showed CHF. EKG shows a possible junctional tachycardia an d I was consulted. The patient had pedal edema, PND, orthopnea, shortness of breath, but denied any chest pain. She denied any fever, chills, or cough. Denied any palpitation or syncope. Past Medical History: Include diabetes, lymphedema, breast cancer. Review of Systems: Negative. Social History: Negative. Family History: Negative. Medications: Include Fosamax, Lipitor, insulin, Zestril, and Aldactone. Allergies: SHE IS ALLERGIC TO ADHESIVE TAPE. Physical Examination: General: She was very pleasant. No acute distress. At the time, I saw her she was in sinus rhythm with first-degree AV block. HEENT: Negative. Neck: Supple without bruit, lymphadenopathy, JVD, or thyromegaly. Chest: Reveals some rales at both bases. Cardiac: Revealed a regular rhythm and rate with S4 gallops, no murmurs, or rubs. Abdomen: Benign. Extremities: Revealed lymphedema. Diagnostic Data: CT showed CHF. Chest x-ray showed CHF. EKG showed initially junctional tachycardi a. Her glucose was 188. Her creatinine is 1.19. Her BNP was 1166. Impression And Plan: 1.Acute diastolic congestive heart failure, most likely echocardiogram is pending. I think we need to continue her home medication. Also add a low-dose beta-tamie. I think she can go home whenever it is okay with Dr. Chamorro. I think it would be reasonable to get a Lexiscan on her as an outpatie nt. 2.Diabetes, poorly controlled. 3.Lymphedema. She sees a physician in [facility]. 4.She also has dyslipidemia, controlled on Lipitor. 5.She has osteoporosis, on Fosamax. I would definitely continue the Zestril and Aldactone when she goes home. She needs to watch her fiordaliza ght, her salt intake and her I's and O's at home, preferably fluid restriction about 72598 to 2000 cc . YOLANDE/CRISTO Voice ID: [id number] Report ID: [id number]
--- NOTE | 2020-06-25 07:33 | ECHO ---
HEIGHT: 4 ft 8.5 in WEIGHT: 203 lb 9.6 oz DATE OF STUDY: 06/12/[address]: Paula Chamorro MD 2-DIMENSIONAL: YES M.MODE: YES DOPPLER: YES COLOR FLOW: YES TDS: PORTABLE: DEFINITY: BUBBLE STUDY: DIAGNOSIS: CONGESTIVE HEART FAILURE CARDIAC HISTORY: CATHERIZATION: SURGERY: PROSTHETIC VALVE: PACEMAKER: MEASUREMENTS (cm) DIASTOLIC (NORMALS) SYSTOLIC (NORMALS) IVSd 1.0 (0.6-1.2) LA Diam 3.6 (1.9-4.0) LVEF 63% LVIDd 4.8 (3.5-5.7) LVIDs 3.1 (2.0-3.5) %FS 34% LVPWd 1.1 (0.6-1.2) Ao Diam 2.1 (2.0-3.7) 2 DIMENSIONAL ASSESSMENT: RIGHT ATRIUM: NORMAL LEFT ATRIUM: NORMAL RIGHT VENTRICLE: NORMAL LEFT VENTRICLE: NORMAL TRICUSPID VALVE: NORMAL MITRAL VALVE: MITRAL ANNULAR CALCIFICATION PULMONIC VALVE: NORMAL AORTIC VALVE: SCLEROSIS PERICARDIAL EFFUSION: NONE AORTIC ROOT: NORMAL LEFT VENTRICULAR WALL MOTION: NORMAL DOPPLER/COLOR FLOW: NORMAL COMMENTS: NORMAL LEFT VENTRICULAR SIZE AND FUNCTION. MITRAL ANNULAR CALCIFICATION. AORTIC SCLEROSIS. NO WALL MOTION ABNORMALITY. TECHNOLOGIST: GUERO MEDINA
[2020-06-26] MEDS ORDERED: ALENDRONATE 70 MG TAB PO SCH (06:30)
== END 2020-06-23 16:36 | disposition home or self-care (01) ==
LOC: ER 16:53 → ERHOLD 20:32 → 2ND 21:39 → UNDODISOB 06-23 12:40
PROVIDERS: ADMIT Internal Medicine; ATTEND Internal Medicine
DX: I11.0 Hypertensive heart disease with heart failure (principal); I50.31 Acute diastolic (congestive) heart failure; E78.5 Hyperlipidemia, unspecified; E11.65 Type 2 diabetes mellitus with hyperglycemia; Z20.828 Contact with and (suspected) exposure to other viral communicable diseases; I89.0 Lymphedema, not elsewhere classified; Z79.4 Long term (current) use of insulin; R94.31 Abnormal electrocardiogram [ECG] [EKG]; M81.0 Age-related osteoporosis without current pathological fracture; Z85.3 Personal history of malignant neoplasm of breast; M19.90 Unspecified osteoarthritis, unspecified site
CPT/HCPCS: 96365; 93005; 93306; 85025 ×3; 80048 ×3; 36415 ×2; 83735 ×2; 85610; 82947 ×8; 80076; 84484 ×3; 83880 ×2; 71250; 71045; 96375; 99285; U0003; J1940 ×4; J3475 ×2; G0378 ×4

== ENCOUNTER 2021-02-19 14:14 | Emergency (ER) | payer OTHER ==
--- NOTE | 2021-02-19 15:23 | RAD REPORT ---
EXAM DESCRIPTION: Danilo Pa And Lat (2 Views)02/19/2021 3:10 pm CLINICAL HISTORY: Cough COMPARISON: 2019 FINDINGS: [id number] bilateral pulmonary opacities. The heart is mildly moderately enlarged IMPRESSION: Mild to moderate bilateral pulmonary opacities. This probably represents a combination o f pulmonary edema superimposed over chronic changes
[2021-02-19 18:22] LABS: Absolute Lymphocytes (CBC) 0.9 K/uL (0.7-4.9); Basophils % 0.8 % (0-1.3); MPV 8.9 fL (7.6-11.3); RBC Red Blood Cell Count 3.98 M/uL (3.86-4.86)
[2021-02-19 18:30] LABS: Potassium 4.3 mmol/L (3.5-5.1)
--- NOTE | 2021-02-19 20:27 | ER ---
Nurse's Notes [facility] Name: Dang Ovalles Age: 80 yrs Sex: Female : 1940 Arrival Date: 02/19/2021 Time: 14:17 Bed 13 Private MD: Paula Chamorro F Diagnosis: Other pneumonia, unspecified organism Presentation: 02/19 14:35 Chief complaint: Patient states: SOB, productive cough and runny nose x 1 day. Daughter jl7 reports tried to get into PCP but no appointments available. Coronavirus screen: Client denies travel out of the [place] in the last 14 days. congestion, cough unrelated to allergies, shortness of breath, Client presents with at least one sign or symptom that may indicate coronavirus-19. Standard/surgical mask placed on the client. Provider contacted for isolation considerations. Ebola Screen: No symptoms or risks identified at this time. Initial Sepsis Screen: Does the patient meet any 2 criteria? No. Patient's initial sepsis screen is negative. Does the patient have a suspected source of infection? No. Patient's initial sepsis screen is negative. Risk Assessment: Do you want to hurt yourself or someone else? Patient reports no desire to harm self or others. Onset of symptoms was February 18, 2021. Care prior to arrival: None. 14:35 Method Of Arrival: Wheelchair [facility] 14:35 Acuity: TATY 3 7 Triage Assessment: 16:15 General: Appears distressed, uncomfortable, obese, unkempt, Behavior is cooperative, bp appropriate for age, anxious. Pain: Denies pain. EENT: Reports nasal congestion. Neuro: Level of Consciousness is awake, alert, obeys commands, Oriented to Appropriate for age. Cardiovascular: Rhythm is sinus rhythm. Respiratory: Reports shortness of breath. GI: No signs and/or symptoms were reported involving the gastrointestinal system. : No signs and/or symptoms were reported regarding the genitourinary system. Derm: No deficits noted. Musculoskeletal: Swelling present in right leg and left leg. Historical: - Allergies: 14:39 Tape; jl7 - PMHx: 14:39 Arthritis; breast cancer; Cellulitis; Diabetes - IDDM; lymphedema; jl7 - Immunization history:: Adult Immunizations not up to date, Client reports having NOT received the Covid vaccine. - Social history:: Smoking status: Patient denies any tobacco usage or history of. - Family history:: not pertinent. - Hospitalizations: : No recent hospitalization is reported. Screenin:00 Abuse screen: Denies threats or abuse. Denies injuries from another. Nutritional bp screening: No deficits noted. Tuberculosis screening: No symptoms or risk factors identified. Fall Risk None identified. Assessment: 16:15 General: SEE TRIAGE NOTE. bp 18:00 Reassessment: No changes from previously documented assessment. Patient and/or family bp updated on plan of care and expected duration. Pain level reassessed. ALL CURRENT ORDERS COMPLETED. 19:15 Reassessment: Patient appears in no apparent distress at this time. Patient and/or ad5 family updated on plan of care and expected duration. Pain level reassessed. Patient is alert, oriented x 3, equal unlabored respirations, skin warm/dry/pink. General: Appears in no apparent distress. Behavior is calm, cooperative, appropriate for age. Neuro: No deficits noted. Cardiovascular: No deficits noted. Respiratory: Reports shortness of breath Airway is patent Respiratory effort is even, unlabored, Respiratory pattern is regular, symmetrical. 20:30 Reassessment: Patient appears in no apparent distress at this time. No changes from ad5 previously documented assessment. Patient and/or family updated on plan of care and expected duration. Pain level reassessed. Vital Signs: 14:35 BP 170 / 67; Pulse 73; Resp 22 S; Temp 97.2(TE); Pulse Ox 95% on R/A; Weight 97.98 kg jl7 (R); Pain 0/10; 18:00 BP 185 / 72; Pulse 72; Resp 16; Pulse Ox 95% ; bp 19:45 BP 192 / 86; Pulse 62; Resp 20 S; Pulse Ox 95% on R/A; ad5 20:53 BP 187 / 75; Pulse 77; Resp 20 S; Pulse Ox 94% on R/A; ad5 ED Course: 14:17 Patient arrived in ED. am2 14:17 Paula Chamorro MD is Private Physician. am2 14:39 Triage completed. jl7 14:39 Arm band placed on right wrist. Patient placed in waiting room, Patient notified of jl7 wait time. 15:09 Chest Pa And Lat (2 Views) XRAY In Process Unspecified. EDMS 15:57 Missed attempt(s): 20 gauge in right antecubital area. Bleeding controlled, band aid dh3 applied, catheter tip intact. 16:14 Aiden Garcia MD is Attending Physician. rn 16:56 Frank Obregon, RN is Primary Nurse. bp 18:00 Patient has correct armband on for positive identification. Bed in low position. Call bp light in reach. Side rails up X2. Adult w/ patient. 18:03 Initial lab(s) drawn, by me, sent to lab. Inserted saline lock: 24 gauge in right hand, dh3 using aseptic technique. Blood collected. 20:53 No provider procedures requiring assistance completed. IV discontinued, intact, ad5 bleeding controlled, No redness/swelling at site. Pressure dressing applied. Administered Medications: No medications were administered Outcome: 20:27 Discharge ordered by . ma2 20:53 Discharged to home via wheelchair, with family. ad5 20:53 Condition: stable 20:53 Discharge instructions given to patient, Instructed on discharge instructions, follow up and referral plans. medication usage, Demonstrated understanding of instructions, follow-up care, medications, Prescriptions given X 2. 20:54 Patient left the ED. ad5 Signatures: Dispatcher [employer] EDMS Aiden Garcia MD MD rn Leal, Jahala, RN RN Liliana Crump Deanna 3 Frank Obregon, REYES RN Philippe Baca MD MD ma2 Davidson, Andrea ad5
--- NOTE | 2021-02-19 20:28 | EDPHYS ---
Physician Documentation [facility] Name: Dang Ovalles Age: 80 yrs Sex: Female : 1940 Arrival Date: 02/19/2021 Time: 14:17 Bed 13 Private MD: Paula Chamorro F ED Physician Aiden Garcia HPI: 02/19 16:49 This 80 yrs old Female presents to ER via Wheelchair with complaints of rn Cough, Chest Congestion. 16:49 The patient or guardian reports cough, that is intermittent, described as mild, with rn productive sputum, that is yellow, that is white. 16:49 Onset: The symptoms/episode began/occurred yesterday. Severity of symptoms: At their rn worst the symptoms were mild, in the emergency department the symptoms are unchanged. Modifying factors: The symptoms are alleviated by nothing, the symptoms are aggravated by nothing. Associated signs and symptoms: Pertinent positives: rhinorrhea, Pertinent negatives: diarrhea, fever. The patient has experienced similar episodes in the past. The patient has not recently seen a physician. Reports cough/congestion for 1 day, has hx of pulmonary edema and on lasix. Also reports 2 grandchildren with upper respiratory infections this week and they were around her. No fever. No hemoptysis. Doesn't feel very ill, smell and taste ok, did not get COVID vaccine. . Historical: - Allergies: 14:39 Tape; jl7 - PMHx: 14:39 Arthritis; breast cancer; Cellulitis; Diabetes - IDDM; lymphedema; jl7 - Immunization history:: Adult Immunizations not up to date, Client reports having NOT received the Covid vaccine. - Social history:: Smoking status: Patient denies any tobacco usage or history of. - Family history:: not pertinent. - Hospitalizations: : No recent hospitalization is reported. ROS: 16:49 Constitutional: Negative for fever, chills, and weight loss, Eyes: Negative for injury, rn pain, redness, and discharge, ENT: + congestion Cardiovascular: Negative for chest pain, palpitations Respiratory: + cough Abdomen/GI: Negative for abdominal pain, nausea, vomiting, diarrhea, and constipation, Back: Negative for injury and pain, : Negative for injury, bleeding, discharge, and swelling, MS/Extremity: + swelling and edema bilateral lower ext Skin: Negative for injury, rash, and discoloration, Neuro: Negative for headache, numbness, tingling, and seizure. Exam: 16:49 Constitutional: This is a well developed, well nourished patient who is awake, alert, rn and in no acute distress. Head/Face: Normocephalic, atraumatic. Eyes: Periorbital areas with no swelling, redness, or edema. Cardiovascular: Regular rate and rhythm. No pulse deficits. Respiratory: + mild tachypnea, crackles bilaterally, no wheezing Abdomen/GI: Soft, non-tender Skin: Warm, dry MS/ Extremity: Pulses equal, no cyanosis. 3+ pitting edema bilateral lower extremities consistent with chronic lymphedema, no fluctuance, no draining wounds. Neuro: Awake and alert, GCS 15 Vital Signs: 14:35 BP 170 / 67; Pulse 73; Resp 22 S; Temp 97.2(TE); Pulse Ox 95% on R/A; Weight 97.98 kg jl7 (R); Pain 0/10; 18:00 BP 185 / 72; Pulse 72; Resp 16; Pulse Ox 95% ; bp 19:45 BP 192 / 86; Pulse 62; Resp 20 S; Pulse Ox 95% on R/A; ad5 20:53 BP 187 / 75; Pulse 77; Resp 20 S; Pulse Ox 94% on R/A; ad5 MDM: 16:14 Patient medically screened. rn 18:59 Transition of care: After a detail discussion of the patient's case, care is rn transferred to Philippe Rao MD. 20:23 Differential Diagnosis: Bronchitis Influenza Upper Respiratory Infection Pharyngitis ma2 Viral Syndrome. Data reviewed: vital signs, nurses notes. Counseling: I had a detailed discussion with the patient and/or guardian regarding: the historical points, exam findings, and any diagnostic results supporting the discharge/admit diagnosis, the presence of at least one elevated blood pressure reading (>120/80) during this emergency department visit, the need for outpatient follow up. Response to treatment: the patient's symptoms have markedly improved after treatment. ED course: dr. garcia signed out this patient to me as cap pending viral swaps results and likely will be discharged.I saw the patient she looks well, has cap on cxr, vs wnl and lab non critical, although she is 80 yrs, she still can be managed at home and that what she prefers, low risk per [id number]-[id number], i gave return precaution and discharge instruction to return to er for any worsening of syx. 02/19 16:30 Order name: CBC with Diff rn 02/19 16:30 Order name: Basic Metabolic Panel; Complete Time: 18:41 rn 02/19 16:30 Order name: Procalcitonin; Complete Time: 18:57 rn 02/19 16:30 Order name: Lactate; Complete Time: 18:41 rn 02/19 16:30 Order name: Flu; Complete Time: 20:03 rn 02/19 14:39 Order name: Chest Pa And Lat (2 Views) XRAY; Complete Time: 15:46 kb 02/19 16:30 Order name: IV Start; Complete Time: 18:07 rn 02/19 16:30 Order name: BNP; Complete Time: 18:41 rn 02/19 16:30 Order name: CBC with Automated Diff; Complete Time: 18:41 EDMS 02/19 19:46 Order name: SARS-COV-2 RT PCR; Complete Time: 20:03 EDMS Administered Medications: No medications were administered Disposition Summary: 02/19/21 20:27 Discharge Ordered Location: Home ma2 Condition: Stable ma2 Diagnosis - Other pneumonia, unspecified organism ma2 Followup: ma2 - With: Private Physician - When: Tomorrow - Reason: Recheck today's complaints, Continuance of care Discharge Instructions: - Discharge Summary Sheet ma2 - Community-Acquired Pneumonia, Adult ma2 Forms: - Medication Reconciliation Form ma2 - Thank You Letter ma2 - Antibiotic Education ma2 - Prescription Opioid Use ma2 Prescriptions: - Nystatin 100,000 unit/mL Oral Suspension - take 5 milliliters by ORAL route every 6 hours; 120 milliliter; Refills: 0, ma2 Product Selection Permitted - Zithromax Z-Nimesh 250 mg Oral Tablet - take 1 tablet by ORAL route as directed for 5 days Day 1 - take two (2) tablets ma2 one time. Day 2, 3, 4 , 5 take one (1) tablet once daily.; 6 tablet; Refills: 0, Product Selection Permitted - Nystatin-Triamcinolone 100,000-0.1 unit/gram-% Topical Ointment - apply 1 application by TOPICAL route 2 times per day; 1 tube; Refills: 0, ma2 Product Selection Permitted Signatures: Dispatcher [employer] EDMS Aiden Garcia MD MD rn Aaron Glynn RN RN jl7 Philippe Rao MD MD ma2 Corrections: (The following items were deleted from the chart) 18:39 16:31 CORONAVIRUS+BRZ ordered. EDMS EDMS
[2021-02-19 21:00] VITALS: TEMP 97.2
[2021-02-19 21:05] VITALS: BP 187/75; O2SAT 94
== END 2021-02-19 20:54 | disposition home or self-care (01) ==
LOC: ER 14:14
DX: J18.9 Pneumonia, unspecified organism (principal); Z20.822 Contact with and (suspected) exposure to COVID-19; Z85.3 Personal history of malignant neoplasm of breast; Z91.048 Other nonmedicinal substance allergy status
CPT/HCPCS: 85025; 80048; 36415; 83605; 84145; 83880; 87804 ×2; 71046; U0003; 99284

== ENCOUNTER 2021-04-04 17:51 | Inpatient (IN) | payer OTHER ==
[2021-04-04 23:23] LABS: Protime INR 1.13
[2021-04-04 23:29] LABS: Absolute Lymphocytes (CBC) 0.7 K/uL (0.7-4.9); Basophils % 0.3 % (0-1.3); Hematocrit 27.7 % (36.0-45.0); Lymphocytes % 18.8 % (15.3-44.8); RBC Red Blood Cell Count 3.09 M/uL (3.86-4.86)
[2021-04-04 23:39] LABS: ALT/SGPT 22 U/L (12-78); AST/SGOT 31 U/L (15-37); Albumin 2.7 g/dL (3.4-5.0); Alkaline Phosphatase 88 U/L (45-117); BUN Blood Urea Nitrogen 27 mg/dL (7-18); Bicarbonate 24 mmol/L (21-32); Bilirubin Direct 0.1 mg/dL (0-0.2); Bilirubin Total 0.3 mg/dL (0.2-1.0); Ferritin 356.3 ng/mL (8-388); Glucose Level 58 mg/dL (74-106); NT PRO-BNP 736 pg/mL (<450); Potassium 3.9 mmol/L (3.5-5.1); Protein, Total 7.6 g/dL (6.4-8.2); Sodium Level 138 mmol/L (136-145); Troponin (Emerg Dept Use Only) < 0.02 ng/mL (0.0-0.045)
[2021-04-05 00:09] LABS: Magnesium 1.4 mg/dL (1.8-2.4)
[2021-04-05] MEDS ORDERED: HYDRALAZINE HCL 20 MG/ML VIAL ONE ×2 (00:25→03:26)
[2021-04-05] MEDS ORDERED: FUROSEMIDE 40 MG/4 ML VIAL ONE (00:25)
--- NOTE | 2021-04-05 01:13 | ER ---
Nurse's Notes [facility] Name: Dang Ovalles Age: 80 yrs Sex: Female : 1940 Arrival Date: 04/04/2021 Time: 17:54 Bed 4 Private MD: Paula Chamorro F; Td Borges Diagnosis: Cellulitis of left lower limb;Cellulitis of right lower limb;Dyspnea, unspecified Presentation: 04/04 18:40 Chief complaint: Patient states: Fever and SOB x 2 days, taking PO antibiotics for jl7 cellulitis of bilateral lower extremities. Coronavirus screen: Client denies travel out of the [place] in the last 14 days. fever, muscle pain, shortness of breath, Client presents with at least one sign or symptom that may indicate coronavirus-19. Standard/surgical mask placed on the client. Provider contacted for isolation considerations. Ebola Screen: No symptoms or risks identified at this time. Initial Sepsis Screen: Does the patient meet any 2 criteria? No. Patient's initial sepsis screen is negative. Does the patient have a suspected source of infection? No. Patient's initial sepsis screen is negative. Risk Assessment: Do you want to hurt yourself or someone else? Patient reports no desire to harm self or others. Onset of symptoms was April 02, 2021. 18:40 Method Of Arrival: Wheelchair jl7 18:40 Acuity: TATY 3 jl7 Historical: - Allergies: 18:43 Tape; jl7 - PMHx: 18:43 Arthritis; breast cancer; Cellulitis; Diabetes - IDDM; lymphedema; jl7 - Immunization history:: Client reports having NOT received the Covid vaccine. - Social history:: Smoking status: Patient denies any tobacco usage or history of. Screenin:45 Abuse screen: Denies threats or abuse. Nutritional screening: No deficits noted. jb4 Tuberculosis screening: No symptoms or risk factors identified. Fall Risk Ambulatory Aid- Crutches/Cane/Walker (15 pts). Gait- Weak (10 pts.). Total Laguerre Fall Scale indicates Low Risk Score (25-44 pts). Fall prevention measures have been instituted. Side Rails Up X 2 Placed close to Nursing Station Frequent Obs/Assesments occuring Family Present and informed to notify staff if they need to leave bedside. Assessment: 21:45 General: Appears in no apparent distress. uncomfortable, Behavior is calm, cooperative, jb4 appropriate for age. Pain: Complains of pain in right leg and left leg Pain does not radiate. Pain currently is 0 out of 10 on a pain scale. Neuro: Level of Consciousness is awake, alert, obeys commands, Oriented to person, place, time, situation. Cardiovascular: Patient's skin is warm and dry. Rhythm is irregular. Respiratory: Airway is patent Respiratory effort is even, unlabored, Respiratory pattern is regular, symmetrical. GI: No signs and/or symptoms were reported involving the gastrointestinal system. : EENT: No signs and/or symptoms were reported regarding the EENT system. Derm: Skin is intact, Skin is pink, warm \T\ dry. Musculoskeletal: Circulation, motion, and sensation intact. Range of motion: intact in all extremities. 23:00 Reassessment: Patient appears in no apparent distress at this time. Patient and/or jb4 family updated on plan of care and expected duration. Pain level reassessed. Patient is alert, oriented x 3, equal unlabored respirations, skin warm/dry/pink. 04/05 00:00 Reassessment: Patient appears in no apparent distress at this time. Patient and/or jb4 family updated on plan of care and expected duration. Pain level reassessed. Patient is alert, oriented x 3, equal unlabored respirations, skin warm/dry/pink. 01:00 Reassessment: Patient appears in no apparent distress at this time. Patient and/or jb4 family updated on plan of care and expected duration. Pain level reassessed. Patient is alert, oriented x 3, equal unlabored respirations, skin warm/dry/pink. 01:56 Reassessment: Patient appears in no apparent distress at this time. Patient and/or jb4 family updated on plan of care and expected duration. Pain level reassessed. Patient is alert, oriented x 3, equal unlabored respirations, skin warm/dry/pink. 02:45 Reassessment: Patient appears in no apparent distress at this time. Patient and/or jb4 family updated on plan of care and expected duration. Pain level reassessed. Patient is alert, oriented x 3, equal unlabored respirations, skin warm/dry/pink. Vital Signs: 04/04 18:40 BP 152 / 66; Pulse 89; Resp 21; Temp 98.3; Pulse Ox 97% ; Weight 97.98 kg; Height 4 ft. jl7 9 in. (144.78 cm); 23:00 BP 192 / 84; Pulse 73; Resp 19; Pulse Ox 97% on R/A; jb4 23:56 Temp 99.1; jb4 04/05 00:00 BP 191 / 96; Pulse 75; Resp 19; Pulse Ox 93% on R/A; jb4 01:00 BP 184 / 78; Pulse 85; Resp 22; Pulse Ox 94% on R/A; jb4 02:45 BP 196 / 80; Pulse 87; Resp 24; Pulse Ox 91% on R/A; jb4 04/04 18:40 Body Mass Index 46.74 (97.98 kg, 144.78 cm) jl7 ED Course: 04/04 17:54 Patient arrived in ED. as 17:55 Paula Chamorro MD is Private Physician. as 17:55 Td Borges MD is Private Physician. as 18:43 Triage completed. jl7 18:43 Arm band placed on right wrist. jl7 18:46 COVID swab sent to lab. jl7 21:29 Patient's name was called from ER lobby. No response. lp1 21:37 [facility]. cp 21:37 Zaire Castaneda MD is Attending Physician. cp 21:45 Patient has correct armband on for positive identification. Placed in gown. Bed in low jb4 position. Call light in reach. Side rails up X 1. quality assurance monitor chassis on. Pulse ox on. NIBP on. 22:29 XRAY Chest (1 view) In Process Unspecified. EDMS 22:36 Irene Richardson, RN is Primary Nurse. bb 22:36 Raimundo Valdes, RN is Primary Nurse. jb4 23:00 Initial lab(s) drawn, by me, sent to lab. Inserted saline lock: 22 gauge in right upper jb4 arm, using aseptic technique. Blood collected. 04/05 01:12 Paula Chamorro MD is Hospitalizing Provider. cp 02:16 CT Chest For PE Angio In Process Unspecified. EDMS 02:45 No provider procedures requiring assistance completed. Patient admitted, IV remains in jb4 place. Administered Medications: 00:05 Drug: hydrALAZINE 10 mg Route: IVP; Site: right upper arm; jb4 00:30 Follow up: Response: No adverse reaction jb4 00:06 Drug: Lasix (furosemide) 40 mg Route: IVP; Site: right upper arm; jb4 00:30 Follow up: Response: No adverse reaction jb4 01:21 Not Given (Physician Discretion): cefOTAXime 1 grams IVPB once over 30 mins; (mix in cp 100 mL NS) 01:34 Drug: D50W 50 ml Route: IVP; Site: right upper arm; jb4 02:00 Follow up: Response: No adverse reaction jb4 01:52 Drug: Cefepime 1 grams {Note: Given IVP per providers verbal instructions and pharmacy jb4 protocol.} Route: IVPB; Rate: 200 ml/hr; Infused Over: 30 mins; Site: right upper arm; 01:56 Follow up: Response: No adverse reaction; IV Status: Completed infusion; IV Intake: [id number] 02:25 Drug: vancoMYCIN 1 grams Route: IVPB; Infused Over: 2 hrs; Site: right upper arm; jb4 04:25 Follow up: Response: No adverse reaction; IV Status: Completed infusion; IV Intake: jb4 250ml 03:08 Drug: hydrALAZINE 10 mg Route: IVP; Site: right upper arm; ea 04:00 Follow up: Response: No adverse reaction jb4 03:08 Drug: Lovenox (enoxaparin) 40 mg Route: Sub-Q; Site: right lower abdomen; ea 04:00 Follow up: Response: No adverse reaction jb4 Intake: 01:56 IV: 10ml; Total: 10ml. jb4 04:25 IV: 250ml; Total: 260ml. jb4 Outcome: 01:12 Decision to Hospitalize by Provider. cp 02:45 Admitted to ER Hold. Please see [facility] for further documentation. jb4 02:45 Condition: stable 02:45 Discharge instructions given to patient, family, Instructed on the need for admit, Demonstrated understanding of instructions. 21:39 Patient left the ED. jb4 Signatures: Dispatcher [employer] EDMS Dilcia Arita Brenda, RN RN bb Joselyn Bernal RN RN lp1 Zaire Tan PA PA Raimundo Bennett RN RN jb4 Aaron Glynn, RN RN jl7 Brenda, Lissette, RN RN ea
--- NOTE | 2021-04-05 01:13 | EDPHYS ---
Physician Documentation [facility] Name: Dang Ovalles Age: 80 yrs Sex: Female : 1940 Arrival Date: 04/04/2021 Time: 17:54 Bed 4 Private MD: Paula Chamorro F; Sinha, Anil ED Physician Zaire Castaneda HPI: 04/04 21:45 This 80 yrs old Female presents to ER via Wheelchair with complaints of cp Fever, Shortness Of Breath, Cellulitis/Lymphedema. 21:45 The patient has shortness of breath at rest. cp 21:45 Onset: The symptoms/episode began/occurred 2 day(s) ago. cp 21:45 Duration: The symptoms are continuous, and are steadily getting worse. The patient's cp shortness of breath is aggravated by exertion, supine position. Associated signs and symptoms: Pertinent positives: non-productive cough, fever, Pertinent negatives: chest pain, diaphoresis, vomiting. Severity of symptoms: in the emergency department the symptoms are unchanged despite home interventions. The patient reports fever, not measured (subjective). Historical: - Allergies: 18:43 Tape; jl7 - PMHx: 18:43 Arthritis; breast cancer; Cellulitis; Diabetes - IDDM; lymphedema; jl7 - Immunization history:: Client reports having NOT received the Covid vaccine. - Social history:: Smoking status: Patient denies any tobacco usage or history of. ROS: 21:50 Constitutional: Negative for body aches, chills, fever, poor PO intake. cp 21:50 Eyes: Negative for injury, pain, redness, and discharge. cp 21:50 Cardiovascular: Positive for edema, Negative for chest pain. 21:50 Respiratory: Positive for shortness of breath, at rest. Negative for cough, wheezing. 21:50 Abdomen/GI: Negative for abdominal pain, nausea, vomiting, and diarrhea. 21:50 Neuro: Negative for altered mental status, headache, weakness. 21:50 All other systems are negative. Exam: 21:55 Constitutional: The patient appears in no acute distress, alert, awake, cp non-diaphoretic, non-toxic, well developed, well nourished, obese. 21:55 Head/Face: Normocephalic, atraumatic. cp 21:55 Eyes: Periorbital structures: appear normal, Conjunctiva: normal, no exudate, no injection, Sclera: no appreciated abnormality, Lids and lashes: appear normal, bilaterally. 21:55 ENT: External ear(s): are unremarkable, Nose: is normal, Mouth: Lips: moist, Oral mucosa: moist, Posterior pharynx: Airway: no evidence of obstruction, patent. 21:55 Neck: ROM/movement: is normal, is supple, without pain, no range of motions limitations. 21:55 Chest/axilla: Inspection: normal, Palpation: is normal, no crepitus, no tenderness. 21:55 Cardiovascular: Rate: normal, Rhythm: regular, Edema: pedal edema, that is marked, ankle edema, that is marked, JVD: is not appreciated. 21:55 Respiratory: the patient does not display signs of respiratory distress, Respirations: shallow respirations, that is mild, Breath sounds: decreased breath sounds, that are mild, throughout, stridor, is not appreciated, wheezing: is not appreciated. 21:55 Abdomen/GI: Inspection: obese Palpation: abdomen is soft and non-tender, in all quadrants. 21:55 Back: pain, is absent, ROM is normal. 21:55 Skin: noted bilateral lower leg circumferential erythema extending from foot to below knee, small open wound medial aspect left lower leg with scant purulent drainage . 21:55 Neuro: Orientation: to person, place \T\ time. Mentation: is normal, Motor: moves all fours, strength is normal. 23:35 ECG was reviewed by the Attending Physician. cp Vital Signs: 18:40 BP 152 / 66; Pulse 89; Resp 21; Temp 98.3; Pulse Ox 97% ; Weight 97.98 kg; Height 4 ft. jl7 9 in. (144.78 cm); 23:00 BP 192 / 84; Pulse 73; Resp 19; Pulse Ox 97% on R/A; jb4 23:56 Temp 99.1; jb4 04/05 00:00 BP 191 / 96; Pulse 75; Resp 19; Pulse Ox 93% on R/A; jb4 01:00 BP 184 / 78; Pulse 85; Resp 22; Pulse Ox 94% on R/A; jb4 02:45 BP 196 / 80; Pulse 87; Resp 24; Pulse Ox 91% on R/A; jb4 04/04 18:40 Body Mass Index 46.74 (97.98 kg, 144.78 cm) jl7 MDM: 04/04 21:47 Patient medically screened. 04/05 00:30 Data reviewed: vital signs, nurses notes, lab test result(s), EKG, radiologic studies, cp plain films. 00:30 Antibiotic administration: Test interpretation: by ED physician or midlevel provider: cp ECG, plain radiologic studies. Physician consultation: Paula Chamorro MD was called at 00:30, left message on voicemail. 04/04 20:12 Order name: SARS-COV-2 RT PCR; Complete Time: 23:54 [facility] 04/05 00:16 Interpretation: Abnormal: SARSCOV2 RT PCR POSITIVE. 04/04 21:38 Order name: Basic Metabolic Panel; Complete Time: 00:15 04/05 00:15 Interpretation: Normal except: CL 110; GLUC 58; BUN 27; GFR 51; CA 7.4. 04/04 21:38 Order name: CBC with Diff; Complete Time: 23:54 04/04 23:55 Interpretation: Normal except: RBC 3.09; HGB 9.2; HCT 27.7; PLT 130; MN% 16.6. 04/04 21:38 Order name: LFT's; Complete Time: 00:15 04/05 00:16 Interpretation: Normal except: ALB 2.7; GLOB 4.9; A/G 0.6. 04/04 21:38 Order name: Magnesium; Complete Time: 00:15 04/05 00:16 Interpretation: Abnormal: MG 1.4. 04/04 21:38 Order name: NT PRO-BNP; Complete Time: 00:15 04/04 21:38 Order name: PT-INR; Complete Time: 23:54 04/04 21:38 Order name: Troponin (emerg Dept Use Only); Complete Time: 00:15 04/04 21:38 Order name: CRP; Complete Time: 00:15 04/04 21:38 Order name: Ferritin; Complete Time: 00:15 04/05 01:56 Order name: Basic Metabolic Panel [facility] 04/05 01:56 Order name: Basic Metabolic Panel [facility] 04/05 01:56 Order name: NT PRO-BNP [facility] 04/04 21:38 Order name: XRAY Chest (1 view) cp 04/05 00:59 Order name: CT Chest For PE Angio cp 04/05 01:56 Order name: NT PRO-BNP EDMS 04/05 01:56 Order name: Troponin I EDMS 04/05 01:56 Order name: Troponin I EDMS 04/05 01:56 Order name: Troponin I EDMS 04/05 01:56 Order name: CBC with Automated Diff EDMS 04/05 01:56 Order name: CBC with Automated Diff EDMS 04/05 07:08 Order name: Glucose, Ancillary Testing EDMS 04/05 07:59 Order name: Vancomycin Level Trough EDMS 04/05 07:59 Order name: Vancomycin Peak EDMS 04/05 09:29 Order name: Glucose, Ancillary Testing EDMS 04/05 12:17 Order name: Glucose, Ancillary Testing EDMS 04/05 17:50 Order name: Glucose, Ancillary Testing EDMS 04/04 21:38 Order name: EKG; Complete Time: 21:38 cp 04/04 21:38 Order name: Cardiac monitoring; Complete Time: 23:37 cp 04/04 21:38 Order name: EKG - Nurse/Tech; Complete Time: 23:37 cp 04/04 21:38 Order name: IV Saline Lock; Complete Time: 23:37 cp 04/04 21:38 Order name: Labs collected and sent; Complete Time: 23:37 cp 04/04 21:38 Order name: O2 Per Protocol; Complete Time: 22:40 cp 04/04 21:38 Order name: O2 Sat Monitoring; Complete Time: 22:40 cp 04/05 01:56 Order name: Consistent Carb (ADA) 2000 James EDMS 04/05 01:56 Order name: EKG Electrocardiogram EDAZ 04/05 01:56 Order name: EKG Electrocardiogram EDMS EC/12 23:35 Rate is 79 beats/min. Rhythm is regular. QRS interval is normal. QT interval is normal. cp Interpreted by me. Reviewed by me. Administered Medications: 04/05 00:05 Drug: hydrALAZINE 10 mg Route: IVP; Site: right upper arm; jb4 00:30 Follow up: Response: No adverse reaction jb4 00:06 Drug: Lasix (furosemide) 40 mg Route: IVP; Site: right upper arm; jb4 00:30 Follow up: Response: No adverse reaction jb4 01:21 Not Given (Physician Discretion): cefOTAXime 1 grams IVPB once over 30 mins; (mix in cp 100 mL NS) 01:34 Drug: D50W 50 ml Route: IVP; Site: right upper arm; jb4 02:00 Follow up: Response: No adverse reaction jb4 01:52 Drug: Cefepime 1 grams {Note: Given IVP per providers verbal instructions and pharmacy jb4 protocol.} Route: IVPB; Rate: 200 ml/hr; Infused Over: 30 mins; Site: right upper arm; 01:56 Follow up: Response: No adverse reaction; IV Status: Completed infusion; IV Intake: [id number] 02:25 Drug: vancoMYCIN 1 grams Route: IVPB; Infused Over: 2 hrs; Site: right upper arm; jb4 04:25 Follow up: Response: No adverse reaction; IV Status: Completed infusion; IV Intake: jb4 250ml 03:08 Drug: hydrALAZINE 10 mg Route: IVP; Site: right upper arm; ea 04:00 Follow up: Response: No adverse reaction jb4 03:08 Drug: Lovenox (enoxaparin) 40 mg Route: Sub-Q; Site: right lower abdomen; ea 04:00 Follow up: Response: No adverse reaction jb4 Disposition Summary: 04/05/21 01:12 Hospitalization Ordered Hospitalization Status: Inpatient Admission cp Provider: Paula Chamorro cp Condition: Stable cp Problem: new cp Symptoms: have improved cp Bed/Room Type: Standard cp Location: Intensive Care Unit(04/05/21 19:57) Room Assignment: 7-(04/05/21 19:57) Diagnosis - Cellulitis of left lower limb cp - Cellulitis of right lower limb cp - Dyspnea, unspecified cp Forms: - Medication Reconciliation Form cp - SBAR form cp Addendum: 04/08/2021 07:05 Co-signature as Attending Physician, Zaire Castaneda MD I agree with the assessment and c espinoza plan of care. Signatures: Dispatcher [employer] EDAZ Razia Crawford RN RN mw Anderson, Corey, MD MD cha Lasagna, Tonya RN RN tl1 Zaire Tan PA PA cp Bryson, James RN RN jb4 Aaron Glynn RN RN jl7 Lissette Gutierrez RN RN ea Corrections: (The following items were deleted from the chart) 04/04 19:16 18:44 CORONAVIRUS+ ordered. EDMS EDMS 04/05 02:15 01:12 Telemetry/MedSurg (Inpatient) cp tl1 02:15 01:12 cp tl1 19:57 02:15 [facility] ER HOLD tl1 mw 19:57 02:15 ERHOLD- tl1 mw
[2021-04-05] MEDS ORDERED: NA CHLORIDE 0.9% 250 ML ONE (01:41)
[2021-04-05] MEDS ORDERED: D50W 25 GM/50 ML SYRINGE IV ONE (01:41)
[2021-04-05] MEDS ORDERED: VANCOMYCIN 1 GM/VIAL ONE (01:41)
[2021-04-05] MEDS ORDERED: ALBUTEROL 2.5 MG/3 ML NEB SOL NEB PRN (01:54)
[2021-04-05] MEDS ORDERED: IPRATROPIUM BROM 0.5MG/2.5ML NEB PRN (01:54)
[2021-04-05] MEDS ORDERED: ACETAMINOPHEN 500 MG TAB PO PRN (01:54)
[2021-04-05] MEDS ORDERED: ONDANSETRON 4 MG/2 ML VIAL IV PRN (01:54)
[2021-04-05] MEDS ORDERED: CEFEPIME/SWI 1gm 10 ML ONE (02:06)
[2021-04-05] MEDS ORDERED: ENOXAPARIN 40 MG/0.4 ML SQ ONE (03:26)
[2021-04-05] MEDS ORDERED: Pharmacy Consult 1 EA XX PRN (03:42)
[2021-04-05] MEDS ORDERED: GLUCAGON 1 MG/VIAL IM PRN (03:43)
[2021-04-05] MEDS ORDERED: D50W 25 GM/50 ML SYRINGE IV PRN (03:43)
[2021-04-05] MEDS ORDERED: VANCOMYCIN IVPB SCH (05:00)
[2021-04-05] MEDS ORDERED: NA CHLORIDE 0.9% IVPB SCH (05:00)
[2021-04-05] MEDS ORDERED: ACETAMINOPHEN 500 MG TAB ONE (07:24)
[2021-04-05] MEDS: INSULIN -REGULAR HUMAN 50 UNIT/0.5 ML ML SQ SCH ×4 (07:30→21:00)
--- NOTE | 2021-04-05 08:49 | RAD REPORT ---
EXAM DESCRIPTION: RAD - Chest Single View - 04/04/2021 10:29 pm CLINICAL HISTORY: Cough;SOB Chest pain. COMPARISON: Chest Pa And Lat (2 Views) dated 02/19/2021; Chest Single View dated 06/21/2020; Chest Si ngle View dated 11/18/2018; Chest Pa And Lat (2 Views) dated 09/13/2018 FINDINGS: Portable technique limits examination quality. Extensive bilateral pulmonary opacities are present likely representing pulmonary edema or pulmonary infection/COVID-19. The heart is mildly enlarged in size. Small bilateral pleural effusions.
[2021-04-05] MEDS ORDERED: CEFEPIME 1 GM/VIAL IV SCH (09:00)
[2021-04-05] MEDS: CEFEPIME/SWI 1gm 10 ML IV SCH ×2 (09:00→21:48)
[2021-04-05] MEDS: METHYLPREDNISOLONE 40 MG INJ IV SCH (17:00)
--- NOTE | 2021-04-05 21:15 | RAD REPORT ---
EXAM DESCRIPTION: CT Angiography Chest With Intravenous Contrast CLINICAL HISTORY: The patient is 80 years old and is Female; SOB TECHNIQUE: Axial computed tomographic angiography images of the chest with intravenous contrast. S agittal and coronal reformatted images were created and reviewed. This CT exam was performed using one or more of the following dose reduction techniques: automated exposure control, adjustment of t he mA and/or kV according to patient size, and/or use of iterative reconstruction technique. MIP reconstructed images were created and reviewed. COMPARISON: CT of the chest June 21, 2020 FINDINGS: ARTIFACTS: The exam is suboptimal secondary to motion artifact. PULMONARY ARTERIES: The main pulmonary arteries opacify normally and are without filling defect. AORTA: No acute findings. No thoracic aortic aneurysm. LUNGS: Mild scattered groundglass peripheral located opacity throughout the lungs is noted. The wisam gs are hyperinflated. PLEURAL SPACE: Unremarkable. No significant effusion. No pneumothorax. HEART: The heart is enlarged. There is no pericardial effusion. No evidence of RV dysfunction. BONES/JOINTS: Degenerative change of the spine is present. No acute fracture. No dislocation. SOFT TISSUES: Unremarkable. LYMPH NODES: Several prominent AP window lymph nodes are noted, these are unchanged from prior ex am. A few right hilar lymph nodes are present. LIVER: The liver is enlarged and diffusely fatty. IMPRESSION: 1. The main pulmonary arteries opacify normally and are without filling defect. Hubbard natasha, the remainder of the pulmonary vessels are inadequately evaluated secondary to a combination of streak artifact and motion. 2. Mild scattered groundglass infiltrates throughout the lungs. Commonly reported imaging feature s of (COVID-19 or viral) pneumonia are present. Other processes such as influenza pneumonia and organ izing pneumonia, as can be seen with drug toxicity and connective tissue disease, can cause a similar imaging pattern. [id number] Electronically signed by: Regina Roman MD 04/05/2021 2:38 AM CDT Due to temporary technical issues with the PACS/Fluency reporting system, reports are being signed by the in house radiologists without review as a courtesy to insure prompt reporting. The interpreting radiologist is fully responsible for the content of the report.
[2021-04-05] MEDS: APIXABAN 5 MG TABLET PO SCH (21:48)
--- NOTE | 2021-04-05 23:35 | HP ---
Date of Admission: 04/05/2021 History Of Present Illness: The patient is a 80-year-old female with chronic bilateral lower extremi ty lymphedema along with recurrent cellulitis in her legs. The patient started feeling increased azucena rtness of breath over the past 3 days along with fever and chills. She came to the emergency room. She was found to have bilateral opacities and COVID positive testing, most likely COVID pneumonia. T he patient also had increased redness in both her lower extremities and cellulitis in the joint area is considered also. The patient had no other complaints. Review of Systems: Cardiovascular: No complaint. Respiratory: As above. Skeletomuscular: As above. Neurological: No complaints. Gastrointestinal: No complaints. Genitourinary: No complaints. Past Medical History: 1.As above. 2.Type 2 diabetes. 3.History of breast cancer. 4.History of arthritis, different joints. 5.Hyperlipidemia. 6.Osteoporosis. 7.Hypertension. Social History: No smoking, alcohol, or drug abuse history. Family History: Noncontributing. Medications: Include atorvastatin 10 mg p.o. daily, Lidex 1 g daily, furosemide 40 mg p.o. daily, Tr esiba 30 units subcutaneous daily, lisinopril 20 mg p.o. daily, and Zantac 150 mg p.o. daily, Aldacto ne 25 mg p.o. daily. Allergies: ADHESIVE TAPE. Physical Examination: Vital Signs: Blood pressure 150/70, pulse 66, temperature 99.1. Heart: Regular rate and rhythm. Chest: Decreased breath sounds from both sites with mild bilateral crackles. Abdomen: Soft, nontender. No hepatosplenomegaly. Bowel sounds are normoactive. Extremities: Chronic lymphedema and redness circumferentially around both lower extremities. Neurological: Alert, oriented, and nonfocal. Grossly intact. Abdomen: Soft, benign, nontender. No hepatosplenomegaly. Bowel sounds are normoactive. Imaging: Chest x-ray showed bilateral pulmonary opacities. COVID-19 test was positive. CBC showed white cell count of 3.9, hemoglobin 9.2, hematocrit 27.7, and platelets 130. Laboratory Data: Chemistry: Magnesium 1.4, calcium 7.4, BUN 27, creatinine 1.04, GFR 51. Blood sug ar fingersticks noted. Troponin less than 0.02. C-reactive protein 32.4. Assessment/plan: 1.COVID pneumonia. The patient is being admitted. We will give her supportive care with oxygen pro tocol. We will put her on IV steroid, and we will put her on prophylaxis for deep vein thromboses wi . The patient has been put on IV antibiotics for her cellulitis of the legs. We will put her also on vitamin D3 and magnesium. 2.Cellulitis of both lower extremities. The patient has been put on IV antibiotics. 3.Anemia of chronic illness. We will monitor that the patient is stable. 4.Type 2 diabetes. We will monitor blood sugar and put her on sliding scale. Look orders for lucas MONTERO/MODL Voice ID: [id number]
[2021-04-06] MEDS: METHYLPREDNISOLONE 40 MG INJ IV SCH ×3 (00:59→17:09)
[2021-04-06 05:27] LABS: Absolute Lymphocytes (CBC) 0.3 K/uL (0.7-4.9); Basophils % 0.2 % (0-1.3); Hematocrit 33.2 % (36.0-45.0); Lymphocytes % 11.1 % (15.3-44.8); MPV 9.5 fL (7.6-11.3)
[2021-04-06 05:56] LABS: Potassium 4.4 mmol/L (3.5-5.1)
[2021-04-06] MEDS ORDERED: VANCOMYCIN 1.75 GM in NA CHLORIDE 0.9% 500 ML IVPB SCH (06:00)
[2021-04-06 06:33] LABS: Magnesium 1.8 mg/dL (1.8-2.4); Phosphorus 3.1 mg/dL (2.5-4.9)
[2021-04-06] MEDS: INSULIN -REGULAR HUMAN 50 UNIT/0.5 ML ML SQ SCH ×4 (07:30→20:30)
[2021-04-06] MEDS: APIXABAN 5 MG TABLET PO SCH ×2 (09:50→20:30)
[2021-04-06] MEDS: ZINC SULFATE 220 MG CAP PO SCH (09:50)
[2021-04-06] MEDS: VITAMIN D 1000 UNIT TAB PO SCH (09:50)
[2021-04-06] MEDS: CEFEPIME/SWI 1gm 10 ML IV SCH ×2 (09:50→20:51)
[2021-04-06] MEDS ORDERED: CEFEPIME/SWI 1gm 10 ML ONE (20:55)
--- NOTE | 2021-04-06 21:03 | PN ---
Subjective: The patient is doing well. Her shortness of breath is better. Has no new complaints. Minimal cough. Objective: Vital Signs: Blood pressure 160/63, pulse 65, temperature 97.6, pulse oximetry 2 L nasal cannula at 96% and 94%. Heart: Regular rate and rhythm. Chest: Mild bilateral crackles. Abdomen: Soft, benign. Neurological Examination: Alert and oriented. Grossly intact. Extremities: Bilateral lower extremities decreased erythema and warmness on both legs. Laboratory Data: White cell count at 3, hemoglobin 11.1, hematocrit 33.2, platelets 112, BUN 32, cre atinine 1.15, GFR of 46. Blood sugar fingersticks noted. Assessment/plan: 1.Bilateral COVID pneumonia. The patient is clinically improving. Her requirement of oxygen is min imal. We will continue current care from that standpoint. 2.Cellulitis of bilateral lower extremities. Continue current antibiotics. 3.Rest of her chronic medical problems and diabetes, stable. We will continue current management an d follow up blood sugar fingersticks. Expect discharge in about 1 to 2 days. Look orders for detail s. MFS/MODL Voice ID: [id number] Report ID: [id number]
[2021-04-07] MEDS: METHYLPREDNISOLONE 40 MG INJ IV SCH ×2 (00:37→08:20)
[2021-04-07 05:13] LABS: Absolute Lymphocytes (CBC) 0.5 K/uL (0.7-4.9); Basophils % 0.2 % (0-1.3); Hematocrit 32.9 % (36.0-45.0); Lymphocytes % 23.8 % (15.3-44.8); MPV 9.3 fL (7.6-11.3); RBC Red Blood Cell Count 3.67 M/uL (3.86-4.86)
[2021-04-07] MEDS: VANCOMYCIN 1.75 GM in NA CHLORIDE 0.9% 500 ML IVPB SCH (05:43)
[2021-04-07 05:57] LABS: Phosphorus 3.4 mg/dL (2.5-4.9)
[2021-04-07 05:58] LABS: Magnesium 1.8 mg/dL (1.8-2.4); Potassium 4.7 mmol/L (3.5-5.1)
[2021-04-07] MEDS: APIXABAN 5 MG TABLET PO SCH ×2 (08:20→20:36)
[2021-04-07] MEDS: VITAMIN D 1000 UNIT TAB PO SCH (08:20)
[2021-04-07] MEDS: ZINC SULFATE 220 MG CAP PO SCH (08:20)
[2021-04-07] MEDS: CEFEPIME/SWI 1gm 10 ML IV SCH ×2 (08:21→20:35)
[2021-04-07] MEDS: INSULIN -REGULAR HUMAN 50 UNIT/0.5 ML ML SQ SCH ×5 (08:21→20:36)
[2021-04-07] MEDS: BENZONATATE 100 MG CAP PO PRN ×3 (10:28→23:56)
--- NOTE | 2021-04-07 10:56 | P.CNS ---
Date of Consult: 04/07/21 (TV) Reason for Consult: COVID penumonia and cellulitis History of Present Illness: AGe 80 LE lymphedema AW cellulits / Increseing SOb for 3days/ Stable on NC O2 Allergies adhesive tape Allergy (Intermediate, Verified 06/21/20 22:23) Rash Home Medications: Fluocinonide [Lidex] 1 gm TP DAILY PRN 07/12/15 Nystatin Cream [Mycostatin 100MU/Gm Cream*] 30 gm TP BID PRN 07/12/15 Alendronate Sodium [Fosamax] 70 mg PO SEECOM 09/28/19 Atorvastatin Calcium [Lipitor] 10 mg PO BEDTIME 09/28/19 Insulin Degludec [Tresiba] 30 units SQ DAILY 09/28/19 Lisinopril [Zestril] 20 mg PO DAILY 09/28/19 Ranitidine [Zantac] 150 mg PO DAILY 09/28/19 Spironolactone [Aldactone] 25 mg PO DAILY 09/28/19 Ciprofloxacin HCl [Cipro 500 MG Tablet] 1 tab PO BID 06/21/20 Doxycycline Hyclate 100 mg PO BID 06/21/20 Furosemide [Lasix] 40 mg PO DAILY #30 tab 06/23/20 - Past Medical/Surgical History Diabetic: Yes -: cellulitis rt leg -: lymphedema BOTH LEGS 1982 -: GERD -: DM -: Arthritis -: Breast cancer LEFT -: HLD -: HTN -: SLEEP APNEA -: Hysterectomy CERVICAL cancer 1970 -: D&C -: LYMPH NODE LEFT BREAST REMOVED 20-30 YEARS AGO - Family History Brother Medical History: Heart disease, Cancer Notes: sister also Sister Medical History: Heart disease, Diabetes Notes: OTHER OLDER SISTER WHO :HAD CANCER SON Medical History: Diabetes NEPHEW Medical History: Heart disease - Social History Smoking Status: Unknown if ever smoked Alcohol use: No CD- Drugs: No Caffeine use: Yes Place of Residence: Home Review of Systems General: Weakness Respiratory: Shortness of Breath Physical Examination Temp Pulse Resp BP Pulse Ox 97.0 F 64 26 H 128/60 95 04/07/21 08:00 04/07/21 08:00 04/07/21 08:00 04/07/21 04:00 04/07/21 08:00 General: Alert, In no apparent distress, Oriented x3, Cooperative - Problems (1) Pneumonia due to COVID-19 virus Current Visit: Yes Status: Acute Plan: AW COVID penumonia/ Stble well/ Change to PO pred/CXRY rev/ Add ivermectin/ low CRP/ neutropenia/ Blodd cultures/ Home O2
[2021-04-07] MEDS: SPIRONOLACTONE 25 MG TABLET PO SCH (11:31)
--- NOTE | 2021-04-07 11:47 | PN ---
Subjective: The patient's shortness of breath gets worse with activity. Her pulse oximetry drops do wn with activity and movement. The patient complained of a small dry cough. No other complaints. Objective: Vital Signs: Blood pressure 122/60, pulse 64, temperature 97. Heart: Regular rate and rhythm. Chest: Bilateral crackles. Abdomen: Soft, benign. Neurological examination: Alert and oriented, grossly intact. Extremities: Decreased erythema both legs. Pulse oximetry resting on 2 L is 95% desaturates down to 90 with activity. Laboratory Data: White cell count dropped down to 1.9, hemoglobin 10.9, hematocrit is 32.9, and plat elets 97. Chloride 111, BUN 38, creatinine 1.08, GFR 49. Blood sugar fingersticks noted in the 200s . Assessment/plan: 1.COVID pneumonia. The patient is with increased cough and some desaturation with activity. We velma l check another chest x-ray with Dr. Mars, pulmonary consult. 2.Cellulitis of both lower extremities with lymphedema. Continue current antibiotics. 3.Pancytopenia with the current infection. We will monitor her hemoglobin, hematocrit, platelets an d white cell count. effect. Expect to recover with improvement of general condition. 4.Chronic renal insufficiency, slight worsening bump up with acute worsening bump up; however, this is improving with today's labs. 5.Type 2 diabetes mellitus. Continue sliding scale and regular insulin. 6.Rest of medical problems stable. Look orders for details. MFS/MODL Voice ID: [id number] Report ID: [id number]
[2021-04-07] MEDS: IVERMECTIN 3 MG TABLET PO SCH (12:07)
--- NOTE | 2021-04-07 14:11 | RAD REPORT ---
EXAM DESCRIPTION: RAD - Chest Single View - 04/07/2021 1:58 pm CLINICAL HISTORY: pneumonia COMPARISON: Head Brain Wo Cont dated 08/17/2020; Head Brain Wo Cont dated 03/29/2019Chest Single View dated 04/04/2021; Chest Pa And Lat (2 Views) dated 02/19/2021; Chest Single View dated 06/21/2020; Ches t Single View dated 11/18/2018Chest Single View dated 04/04/2021; Chest Pa And Lat (2 Views) dated 02/19; Chest Single View dated 06/21/2020; Chest Single View dated 11/18/2018; Chest For Pe Angio date d 04/05/2021 FINDINGS: Mild worsening in aeration of the lungs with widespread bilateral airspace disease. Cardio megaly.No acute osseous abnormality. Small effusions difficult to exclude peer IMPRESSION: Mild increased widespread bilateral airspace disease which may reflect multifocal pneumo marin.
[2021-04-07] MEDS: dexAMETHasone 4 MG TAB PO SCH (20:35)
[2021-04-08 05:18] LABS: Absolute Lymphocytes (CBC) 0.5 K/uL (0.7-4.9); Basophils % 0.2 % (0-1.3); Hematocrit 33.7 % (36.0-45.0); Lymphocytes % 8.3 % (15.3-44.8); MPV 9.4 fL (7.6-11.3); RBC Red Blood Cell Count 3.76 M/uL (3.86-4.86)
[2021-04-08 05:44] LABS: Magnesium 2.1 mg/dL (1.8-2.4); Phosphorus 2.7 mg/dL (2.5-4.9); Potassium 4.8 mmol/L (3.5-5.1)
[2021-04-08] MEDS: VANCOMYCIN 1.75 GM in NA CHLORIDE 0.9% 500 ML IVPB SCH ×2 (05:52→17:39)
[2021-04-08] MEDS: INSULIN -REGULAR HUMAN 50 UNIT/0.5 ML ML SQ SCH ×4 (07:30→20:12)
[2021-04-08] MEDS: dexAMETHasone 4 MG TAB PO SCH ×2 (08:21→20:11)
[2021-04-08] MEDS: APIXABAN 5 MG TABLET PO SCH ×2 (08:21→20:11)
[2021-04-08] MEDS: SPIRONOLACTONE 25 MG TABLET PO SCH (08:21)
[2021-04-08] MEDS: BENZONATATE 100 MG CAP PO PRN ×2 (08:21→18:35)
[2021-04-08] MEDS: ZINC SULFATE 220 MG CAP PO SCH (08:21)
[2021-04-08] MEDS: CEFEPIME/SWI 1gm 10 ML IV SCH ×2 (08:21→20:12)
[2021-04-08] MEDS: VITAMIN D 1000 UNIT TAB PO SCH (08:21)
[2021-04-08 09:10] LABS: Blood Morphology Comment NOT SEEN (NOT SEEN); Platelet Estimate DECR; Platelets, Giant PRESENT; White Blood Cell Scan OK (OK)
[2021-04-08] MEDS: GUAIFENESIN/CODEINE 5ML UCUP PO PRN ×2 (15:04→20:12)
--- NOTE | 2021-04-08 18:23 | PN ---
Subjective: The patient has mild increase in coughing, shortness of breath with activity. Her satur ation dropped to where she needs more supplemental oxygen, but at rest she is comfortable and she has no other complaint. Objective: Vital Signs: Blood pressure 160/80, pulse 53, temperature 98.2. Heart: Regular rate and rhythm. Chest: Bilateral crackles. Abdomen: Soft, benign. Neurologic: Alert, oriented. Grossly intact. Extremities: Both lower extremities show lymphedema with marked resolution of erythema in both legs. Radiographic Studies: Chest x-ray showed mild increase in bilateral opacities. Laboratory Data: CBC; hemoglobin 10.9, hematocrit 33.7, white cell count is up to 5.7, and platelets at 100. BUN 42, creatinine 1.03, GFR at 52. Blood sugar fingersticks noted 109 to 186 range. Assessment/plan: 1.COVID pneumonia. The PATIENT requiring oxygen. She may need it at home, however, she is hemodyna mically stable. Dr. Mars has seen the patient and he ordered ivermectin 80 mg p.o. q.48 hours fo r 2 doses. She was also changed to p.o. dexamethasone 4 mg p.o. b.i.d. The patient with coughing. We will go ahead and put her on guaifenesin with codeine to control her coughing. 2.Cellulitis and lymphedema in legs, improved, on IV cefepime. 3.Type 2 diabetes, controlled with the current regimen of sliding scale. 4.Pancytopenia. Her white cell count went up to 5.3. 5.Anemia of chronic disease. Hemoglobin stable at 10.9. Platelets are still low at 100. Has no acute bleeding indications. Will follow up. Look orders for details. MFS/MODL Voice ID: [id number] Report ID: [id number]
[2021-04-08] MEDS ORDERED: FUROSEMIDE 20 MG/ 2ML VIAL IV ONE (19:12)
[2021-04-08] MEDS: lisinopriL 20 MG TAB PO SCH (20:11)
--- NOTE | 2021-04-08 20:16 | RAD REPORT ---
EXAM DESCRIPTION: RAD - Chest Single View - 04/08/2021 7:41 pm CLINICAL HISTORY: Hypoxia COMPARISON: Portable AP 15 TECHNIQUE: AP portable chest image was obtained 04/08/2021 7:41 pm . FINDINGS: Extensive interstitial alveolar opacities are present. Findings may be fractionally worse in the inferior right upper lobe and the right lung base. Heart size is prominent but stable. No new vascular finding. No measurable pleural effusion and no pneumothorax. IMPRESSION: Slight worsening of right lung field pneumonia findings compared to April 07. Left lung pneumonia findings are not clearly different.
[2021-04-08] MEDS: FUROSEMIDE 20 MG/ 2ML VIAL IV SCH (21:20)
--- NOTE | 2021-04-08 21:22 | P.PN ---
Subjective Date of Service: 04/08/21 Chief Complaint: resp distress Subjective: Worsening (CXRY worse more SOB) Review of Systems General: Weakness Respiratory: Shortness of Breath Physical Examination - Vital Signs Temperature: 97.1 F Blood Pressure: 195/98 Pulse: 63 Respirations: 27 Pulse Ox (%): 95 - Physical Exam General: Alert, Cooperative, Moderate distress Assessment & Plan - Problems (Diagnosis) (1) Pneumonia due to COVID-19 virus Current Visit: Yes Status: Acute Plan: Resp failure from COVID CXRY much worse/change to iv solumederol/ CRP ordered/lasix/resume BP meds
[2021-04-08 21:32] LABS: C-Reactive Protein 18.8 mg/L (<3.00); Ferritin 1485.9 ng/mL (8-388)
[2021-04-08] MEDS: METHYLPREDNISOLONE 125 MG INJ IV SCH (22:54)
[2021-04-09 04:52] LABS: Absolute Lymphocytes (CBC) 0.4 K/uL (0.7-4.9); Basophils % 0.1 % (0-1.3); Hematocrit 37.2 % (36.0-45.0); Lymphocytes % 3.3 % (15.3-44.8); MPV 9.5 fL (7.6-11.3); RBC Red Blood Cell Count 4.14 M/uL (3.86-4.86)
[2021-04-09 05:14] LABS: Phosphorus 2.8 mg/dL (2.5-4.9); Potassium 4.8 mmol/L (3.5-5.1)
[2021-04-09] MEDS ORDERED: AMLODIPINE 5 MG TAB PO ONE (06:51)
[2021-04-09] MEDS: INSULIN -REGULAR HUMAN 50 UNIT/0.5 ML ML SQ SCH ×4 (07:30→21:11)
[2021-04-09] MEDS: FUROSEMIDE 20 MG/ 2ML VIAL IV SCH ×2 (07:59→17:43)
[2021-04-09] MEDS: METHYLPREDNISOLONE 125 MG INJ IV SCH ×2 (07:59→21:12)
[2021-04-09] MEDS: lisinopriL 20 MG TAB PO SCH (08:00)
[2021-04-09] MEDS: ZINC SULFATE 220 MG CAP PO SCH (08:00)
[2021-04-09] MEDS: HALOPERIDOL LACT 5 MG/ML INJ IV PRN (08:00)
[2021-04-09] MEDS: VITAMIN D 1000 UNIT TAB PO SCH (08:01)
[2021-04-09] MEDS: APIXABAN 5 MG TABLET PO SCH ×2 (08:01→21:19)
[2021-04-09] MEDS: SPIRONOLACTONE 25 MG TABLET PO SCH (08:01)
[2021-04-09] MEDS: CEFEPIME/SWI 1gm 10 ML IV SCH ×2 (08:01→21:12)
[2021-04-09] MEDS: IVERMECTIN 3 MG TABLET PO SCH (11:33)
[2021-04-09] MEDS ORDERED: HYDRALAZINE HCL 20 MG/ML VIAL IV PRN (12:14)
[2021-04-09] MEDS: MIDAZOLAM HCL 2 MG/2 ML INJ IV PRN ×2 (12:41→22:30)
--- NOTE | 2021-04-09 15:01 | P.PN ---
Subjective Date of Service: 04/09/21 Chief Complaint: resp distress Subjective: Worsening (condition worsening agitated) Review of Systems Respiratory: Shortness of Breath Physical Examination - Vital Signs Temperature: 98.5 F Blood Pressure: 188/61 Pulse: 71 Respirations: 31 Pulse Ox (%): 93 - Physical Exam General: Moderate distress Assessment & Plan - Problems (Diagnosis) (1) Pneumonia due to COVID-19 virus Current Visit: Yes Status: Acute Plan: Resp failure / BP elevated/ on 100% FIo2 labs reviewed/ BC neg
--- NOTE | 2021-04-09 16:12 | PN ---
Subjective: The patient is more short of breath. She had to be on CPAP for oxygen supply to keep he r saturation above 90. Objective: Vital Signs: Blood pressure 187/51, pulse 69, and temperature 96.7. Heart: Regular rate and rhythm. Chest: Bilateral crackles. Abdomen: Soft and benign. Neurologic: Alert, oriented, intact. Extremities: Chronic lymphedema. Radiographic Studies: Chest x-ray showed worsening of bilateral opacities. Laboratory Data: CBC; white cell count 11.10, hemoglobin 11.9, hematocrit 37.2, and platelets 128. Chemistry; BUN 43, creatinine 1.11, and GFR 48. Blood sugar fingersticks noted. Ferritin iron 1485. C-reactive protein 18.8. Assessment And Plan: 1.Acute respiratory failure with COVID pneumonia. The patient is on CPAP for oxygen supply. We velma l continue supportive care from that standpoint. Dr. Masr is following the case with us. 2.Hypertension. We will resume her lisinopril at 20. We will add for her amlodipine 5 mg daily p.o . 3.Type 2 diabetes. Continue sliding scale and regular insulin. 4.Anemia of chronic illness, stable. 5.Chronic renal insufficiency with diabetes, stable. Look orders for details. MFS/MODL Voice ID: [id number] Report ID: [id number]
[2021-04-09] MEDS ORDERED: [UNRECOGNIZED DRUG - OTHER] XX PRN (21:15)
[2021-04-10 05:57] LABS: Absolute Lymphocytes (CBC) 1.8 K/uL (0.7-4.9); Basophils % 0.5 % (0-1.3); Hematocrit 39.9 % (36.0-45.0); MPV 10.1 fL (7.6-11.3); RBC Red Blood Cell Count 4.53 M/uL (3.86-4.86)
[2021-04-10] MEDS: VANCOMYCIN 1.75 GM in NA CHLORIDE 0.9% 500 ML IVPB SCH (06:00)
[2021-04-10] MEDS: MIDAZOLAM HCL 2 MG/2 ML INJ IV PRN ×2 (06:07→09:38)
[2021-04-10 06:11] LABS: Potassium 4.2 mmol/L (3.5-5.1)
[2021-04-10] MEDS: INSULIN -REGULAR HUMAN 50 UNIT/0.5 ML ML SQ SCH ×4 (07:30→20:21)
[2021-04-10 08:17] LABS: Albumin 2.5 g/dL (3.4-5.0); Bilirubin Direct 0.4 mg/dL (0-0.2); Protein, Total 7.7 g/dL (6.4-8.2)
[2021-04-10] MEDS: SPIRONOLACTONE 25 MG TABLET PO SCH (09:00)
[2021-04-10] MEDS: AMLODIPINE 5 MG TAB PO SCH (09:00)
[2021-04-10] MEDS: APIXABAN 5 MG TABLET PO SCH ×2 (09:00→20:19)
[2021-04-10] MEDS: ZINC SULFATE 220 MG CAP PO SCH (09:00)
[2021-04-10] MEDS: FUROSEMIDE 20 MG/ 2ML VIAL IV SCH ×2 (09:00→17:46)
[2021-04-10] MEDS: VITAMIN D 1000 UNIT TAB PO SCH (09:00)
[2021-04-10] MEDS: lisinopriL 20 MG TAB PO SCH (09:00)
[2021-04-10] MEDS ORDERED: propofoL 200 MG/20 ML VIAL IV ONE (09:30)
[2021-04-10] MEDS ORDERED: REMDESIVIR (EUA) 200 MG in NA CHLORIDE 0.9% 250 ML IV ONE (09:30)
[2021-04-10] MEDS ORDERED: RSI MEDICATION KIT IV ONE (09:30)
[2021-04-10] MEDS: propofoL 1,000 MG/100 ML VIAL IV PRN ×5 (09:48→23:30)
[2021-04-10] MEDS ORDERED: CISATRACURIUM INJECTION 2 MG/ML (10 ML Vial) IV ONE (09:48)
[2021-04-10] MEDS: CISATRACURIUM BESYLATE 40 MG in NA CHLORIDE 0.9% 80 ML IV PRN ×3 (09:59→20:19)
--- NOTE | 2021-04-10 10:02 | RAD REPORT ---
EXAM DESCRIPTION: RAD - Chest Single View - 04/10/2021 9:45 am CLINICAL HISTORY: E-tube placement COMPARISON: Chest Single View dated 04/08/2021; Chest Single View dated 04/07/2021; Chest Single View dated 04/04/2021; Chest Pa And Lat (2 Views) dated 02/19/2021; Chest Single View dated 04/10/2021 FINDINGS: Large right-sided pneumothorax. The endotracheal tube is located the mainstem bronchus. Th e left lung is completely consolidated likely atelectatic. There are widespread opacities in the righ t lung. No fracture is seen. NG tube below the diaphragm. IMPRESSION: Large right-sided pneumothorax and right mainstem bronchus intubation. Complete collapse of the left lung. These findings were discussed with the patient's nurse at 0940 on 04/10/21.
--- NOTE | 2021-04-10 10:03 | RAD REPORT ---
EXAM DESCRIPTION: RAD - Chest Single View - 04/10/2021 9:48 am CLINICAL HISTORY: Intubation COMPARISON: Chest Single View dated 04/10/2021; Chest Single View dated 04/08/2021; Chest Single View dated 04/07/2021; Chest Single View dated 04/04/2021 FINDINGS: The endotracheal tube remains in the right mainstem bronchus. It should be retracted by 5. 5 centimeters. Large right-sided pneumothorax. Improved aeration of the left lung is noted. Re- demon strated widespread bilateral airspace disease. Enteric tube below the diaphragm. IMPRESSION: The endotracheal tube remains in the right mainstem bronchus and should be retracted by another 5.5 centimeters. Large right-sided pneumothorax again noted.
[2021-04-10] MEDS ORDERED: NOREPINEPHRINE 4 MG in D5W 250 ML IV PRN (10:09)
[2021-04-10] MEDS ORDERED: NOREPINEPHRINE 8 MG in Dextrose 5%-Water 500 ML IV PRN (10:10)
[2021-04-10] MEDS ORDERED: SUCCINYLCHOLINE 20 MG/ML (10 ML) IV ONE (11:47)
[2021-04-10] MEDS ORDERED: ETOMIDATE 20 MG/10 ML VIAL IV ONE (11:47)
--- NOTE | 2021-04-10 11:55 | P.PN ---
Subjective Date of Service: 04/10/21 Chief Complaint: resp failure Subjective: Worsening (Conition worsened/ Pt intubated and and has a chest tube) Review of Systems is unable to be obtained Physical Examination - Vital Signs Temperature: 96.8 F Blood Pressure: 135/66 Pulse: 66 Respirations: 31 Pulse Ox (%): 91 - Physical Exam General: Unresponsive Assessment & Plan - Problems (Diagnosis) (1) Pneumonia due to COVID-19 virus Current Visit: Yes Status: Acute Plan: Worse/ on vent and now has a L chest tube/ CXRY worse/ Prognosis poor DW daughter Vent orders
--- NOTE | 2021-04-10 12:00 | RAD REPORT ---
EXAM DESCRIPTION: RAD - Chest Single View - 04/10/2021 11:53 am CLINICAL HISTORY: r/o Pneumo. chest tube placement COMPARISON: Chest Single View dated 04/10/2021; Chest Single View dated 04/10/2021; Chest Single View dated 04/08/2021; Chest Single View dated 04/07/2021 FINDINGS: Interval placement of a right-sided chest tube with resolution of the right-sided pneumoth orax. Endotracheal tube has been retracted and is about 2 centimeters above the evie. Widespread bi lateral airspace disease again noted. Cardiomegaly. Enteric tube noted. IMPRESSION: Interval chest tube placement with resolution of the large right-sided pneumothorax. The endotracheal tube has been retracted and is now above the evie. Consider retracting by another 1.5 centimeters if position at the level of the aortic arch is desired.
[2021-04-10] MEDS: METHYLPREDNISOLONE 125 MG INJ IV SCH ×2 (12:18→20:22)
[2021-04-10] MEDS: FAMOTIDINE 20 MG/2 ML VIAL IV SCH ×2 (12:18→20:22)
[2021-04-10] MEDS: CEFEPIME/SWI 1gm 10 ML IV SCH ×2 (12:19→20:20)
[2021-04-10] MEDS: VANCOMYCIN 1.5 GM in NA CHLORIDE 0.9% 500 ML IVPB SCH (12:20)
--- NOTE | 2021-04-10 12:45 | CON ---
History Of Present Illness: This is a case of a 80-year-old patient with multiple medical history in cluding morbid obesity, lymphedema, sleep apnea, admitted to the hospital with shortness of breath, f ound to have COVID positive pneumonia present. Today, she became hypotensive and found to have a lar ge pneumothorax on the right side with effusion on the left side. Dr. Mars, Pulmonary intensivis t and Pulmonary Service asked for an emergent placement of a chest tube and a central line in this pa tient. The patient was previously advised the benefits, alternatives, and risks of chest tube placem ent and central line, which include, but not limited to infection, bleeding, damage to adjacent struc tures, anesthesia complication, hemothorax, empyema, VA, and even . Dr. Mars discussed the case with the family. The staff also and the ICU discussed the case with family. They want all proc edures to be done and I was called emergently to place this. When I found the patient, the patient i s intubated, sedated. She is hypotensive. See procedure note. Past Medical History: Includes as above, arthritis, diabetes, lymphedema, cellulitis, morbid obesity , GERD, sleep apnea, hypertension, breast cancer. Past Surgical History: Includes breast cancer surgery many years ago and we have no documentations o f the details of the surgery, hysterectomy for surgical cancer, D and Cs. Social History: She does not smoke. She does not drink alcohol. Allergies: INCLUDE SENSITIVITY TO TAPE. Family History: Noncontributory at this moment. Review of Systems: Unable to be obtained. The patient is intubated, sedated. Physical Examination: Chest: Diminished breath sounds on the right side. Abdomen: Softly distended. Extremities: Good capillary refill. History of lymphedema. Laboratory Data: Chest x-ray reviewed shows a large right chest pneumothorax. Plan: Emergent placement of a chest tube. Please see my previous procedure note and also emergent p lacement of a central line she is on Levophed with a peripheral line, which is very small central line immediately, so it was done emergently with the request from the roller print tender, Dr. Mars. /JOHANAL Voice ID: [id number] Report ID: [id number]
--- NOTE | 2021-04-10 12:51 | OP ---
Surgeon: Armaan Arita MD Preoperative Diagnoses: Respiratory failure, COVID positive, morbid obesity, hypotension, shock. Postoperative Diagnoses: Respiratory failure, COVID positive, morbid obesity, hypotension, shock. Procedures: 1.Placement of an emergent chest tube on the right side. 2.Emergent placement of a right femoral central line. Anesthesia: The patient is sedated ready. Local anesthetic was used. Complications: None. Findings: The patient has some entrapment of the lung on the right side. It was found what we went and put our finger through the ribs during the chest tube placement and we found some adhesions, main ly the upper lung to the anterior chest wall. Indications: This is a 80-year-old patient, who needs emergent chest tube placement and central line placement. Procedure In Detail: After benefits, alternatives, and risks were explained to the family, I was req uested emergently to put these lines on. Time-out was called for each procedure individually. First , we went to the chest tube. The right chest was prepped and draped in usual sterile fashion. Local anesthesia was applied followed by an incision on the skin region for the areas between fourth and f ifth intercostal space. The patient is morbidly obese. We were able to just go through all the fatt y tissue until we find the space. Once we went through the space, put my finger in to make sure ther e are no adhesions and indeed there were some. We were able to liberate mostly the lower part of the lung chest tube. Chest tube was placed. Then, rod of air was obtained. No bleeding. The chest tube was secured in place with a silk and covered with Vaseline gauze and sterile gauze. T he patient tolerated that procedure well. Vital signs in this area improved. At that moment, I proc eeded to prep and drape the right femoral area. Local anesthesia was applied followed by insertion o f an 18-gauge needle at the right femoral vein at the first attempt. Guidewire was passed through. Needle was removed and a central line triple lumen was placed using Seldinger technique. The patient tolerated the procedure well. The line was secured in place with 3-0 nylon and covered with sterile dressings, flushed with saline. The patient tolerated the procedure well. A chest x-ray was ordere d stat. HM/MODL Voice ID: [id number] Report ID: [id number]
[2021-04-10 13:20] LABS: MPV 9.5 fL (7.6-11.3)
--- NOTE | 2021-04-10 15:45 | RAD REPORT ---
EXAM DESCRIPTION: RAD - Abdomen 1 View (KUB) - 04/10/2021 3:04 pm CLINICAL HISTORY: Dobhoff Placement COMPARISON: No comparisons FINDINGS: Feeding tube has been placed. Tip is curled in the distal stomach. There is an acute bend to the tubing near the metallic tip. This likely restricts the flow through the tubing. Retracting the tube approximately 6 cm may be sufficient to undo the acute bend in the tubing but sti ll remain within the lumen of the stomach.
--- NOTE | 2021-04-10 16:03 | PN ---
Subjective: The patient has acute respiratory failure for which she had to be intubated and now she is sedated on mechanical ventilation. Objective: Vital Signs: The patient's blood pressure 170/75, pulse 70, temperature 97.2, respirator y rate of 24. Heart: Regular rate and rhythm. Chest: Bibasilar crackles. Abdomen: Soft, benign. Neurological: The patient is sedated. Extremities: Chronic lymphedema and erythema at baseline. The erythema that was present has subside d. Laboratory Data: CBC; white cell count 6.9, hemoglobin 13.2, hematocrit 39.9, platelets 134. BUN 45 , creatinine 1.18, GFR 44. Blood sugar fingersticks noted. Assessment And Plan: 1.Acute respiratory failure, on mechanical ventilation, from COVID pneumonia. We will continue supp ortive care. 2.Type 2 diabetes. We will continue blood sugar fingersticks and moderate sliding scale. 3.Hypertension. Starts getting better after adding amlodipine. We will continue monitor. We will increase the dose if needed. 4.Apparently, the patient with her COVID pneumonia is not doing well with her respiratory failure. Dr. Mars spoke to her daughter that he wanted the patient to be resuscitated and everything done for her and so we will continue with the supportive care, mechanical ventilation and current treatmen t, although the outcome has been conveyed to the daughter that she may not do well and may not surviv e and the daughter understands that, but we will continue as mentioned antibiotics, mechanical ventilation, and the rest of her current treatment. Look orders for details. MFS/MODL Voice ID: [id number] Report ID: [id number]
--- NOTE | 2021-04-10 19:04 | RAD REPORT ---
EXAM DESCRIPTION: RAD - Abdomen 1 View (KUB) - 04/10/2021 6:12 pm CLINICAL HISTORY: Dobhoff placement COMPARISON: KUB April 10 FINDINGS: Feeding tube remains curled in the distal stomach with an acute bend near the metallic tip , likely limiting flow. There is been no measurable change in positioning from the earlier study. Add itional retraction of the tubing is needed to correct the acute bend. IMPRESSION: Feeding tube has not changed position from earlier in the day. Feeding tube is in the di stal stomach. There remains an acute bend near the tip that may well limit flow.
[2021-04-11] MEDS ORDERED: propofoL 1,000 MG/100 ML VIAL IV ONE ×2 (00:55→03:24)
[2021-04-11 05:04] LABS: Absolute Lymphocytes (CBC) 0.4 K/uL (0.7-4.9); Basophils % 0.1 % (0-1.3); Hematocrit 31.7 % (36.0-45.0); Lymphocytes % 6.1 % (15.3-44.8); MPV 9.6 fL (7.6-11.3); RBC Red Blood Cell Count 3.63 M/uL (3.86-4.86)
[2021-04-11 05:50] LABS: Albumin 1.9 g/dL (3.4-5.0); Bilirubin Direct 0.4 mg/dL (0-0.2); Bilirubin Total 1.1 mg/dL (0.2-1.0); Protein, Total 6.2 g/dL (6.4-8.2)
[2021-04-11 05:52] LABS: Potassium 4.1 mmol/L (3.5-5.1)
[2021-04-11] MEDS: INSULIN -REGULAR HUMAN 50 UNIT/0.5 ML ML SQ SCH ×3 (07:30→16:31)
--- NOTE | 2021-04-11 07:35 | RAD REPORT ---
EXAM DESCRIPTION: [place] Single View04/11/2021 7:09 am CLINICAL HISTORY: Shortness of breath COMPARISON: April 10, 2021 FINDINGS: Endotracheal tube has its tip overlying the aortic arch. Feeding tube enters the stomach. Right chest tube in place without visualization of a pneumothorax. Minimal improvement in diffuse bilateral pulmonary opacities IMPRESSION: Minimal improvement in diffuse bilateral pulmonary opacities probably pneumonia
[2021-04-11] MEDS: LORazepam 2 MG/ML VIAL IV PRN (08:03)
[2021-04-11] MEDS: lisinopriL 20 MG TAB PO SCH (08:06)
[2021-04-11] MEDS: AMLODIPINE 5 MG TAB PO SCH (08:06)
[2021-04-11] MEDS: MIDAZOLAM HCL 2 MG/2 ML INJ IV PRN (08:24)
[2021-04-11] MEDS: CEFEPIME/SWI 1gm 10 ML IV SCH ×3 (09:00→21:11)
[2021-04-11] MEDS: SPIRONOLACTONE 25 MG TABLET PO SCH (09:47)
[2021-04-11] MEDS: APIXABAN 5 MG TABLET PO SCH ×2 (09:47→21:11)
[2021-04-11] MEDS: VITAMIN D 1000 UNIT TAB PO SCH (09:47)
[2021-04-11] MEDS: MIDAZOLAM HCL 100 MG in NA CHLORIDE 0.9% 80 ML IV PRN ×2 (09:47→21:49)
[2021-04-11] MEDS: METHYLPREDNISOLONE 125 MG INJ IV SCH ×2 (09:48→21:11)
[2021-04-11] MEDS: FAMOTIDINE 20 MG/2 ML VIAL IV SCH (09:48)
[2021-04-11] MEDS: FUROSEMIDE 20 MG/ 2ML VIAL IV SCH ×2 (09:48→16:30)
[2021-04-11] MEDS: REMDESIVIR (EUA) 100 MG in NA CHLORIDE 0.9% 250 ML IV SCH (09:49)
[2021-04-11] MEDS: ZINC SULFATE 220 MG CAP PO SCH (09:50)
--- NOTE | 2021-04-11 11:58 | P.PN ---
Subjective Date of Service: 04/11/21 Chief Complaint: resp failure Stable Review of Systems is unable to be obtained Physical Examination - Vital Signs Temperature: 96.9 F Blood Pressure: 146/60 Pulse: 51 Respirations: 22 Pulse Ox (%): 98 - Physical Exam General: Comatose Assessment & Plan - Problems (Diagnosis) (1) Pneumonia due to COVID-19 virus Current Visit: Yes Status: Acute Plan: Resp failure/ CXRY and ET okay/renal fucntion worse/ WBC normal/CRPelevated/ BArcitinib
--- NOTE | 2021-04-11 12:10 | PN ---
Subjective: The patient is still sedated on mechanical ventilation. Objective: Vital Signs: Blood pressure 146/60, pulse is 50, temperature 96.9. Heart: Bradycardic. Regular rate. Chest: Bibasilar crackles. Abdomen: Soft, benign. Bowel sounds are active. Extremities: Chronic lymphedema. No change. Neurological: The patient is sedated. Laboratory Data: Blood sugar fingersticks in the 200s and 164. Chest x-ray showed minimal improveme nt in bilateral pulmonary opacities. White cell count 6000, hemoglobin 10.6, hematocrit 31.7, platel ets 111. BUN 58, creatinine 1.32, GFR 39. Liver functions noted. Assessment And Plan: 1.COVID pneumonia with acute respiratory failure, now on mechanical ventilation, minimal improvement by chest x-ray; however, the patient is still requiring mechanical ventilation. Continue current [place] pportive care and treatment. 2.Type 2 diabetes. Blood sugars are fairly controlled. The patient is on NG tube feeding. We will keep her on sliding scale q.6 hours. 3.Acute renal failure on top of chronic. We will follow up on that. Currently stage 3. 4.Prognosis of this patient is very guarded and the daughter understands the risk of such disease an d the outcome that may not be a good. Dr. Mars will follow up the case with us. Look orders for details. MFS/MODL Voice ID: [id number] Report ID: [id number]
[2021-04-11] MEDS: VITAL HP 1,000 ML BOT RTH SCH (13:47)
[2021-04-11] MEDS: BARICITINIB 2 MG TABLET PO SCH (15:22)
[2021-04-11] MEDS ORDERED: D50W 25 GM/50 ML SYRINGE IV PRN (15:23)
[2021-04-11] MEDS ORDERED: GLUCAGON 1 MG/VIAL IM PRN (15:23)
[2021-04-11 16:48] LABS: Arterial Blood Carboxyhemoglob 1.1 % (0-1.5); Blood O2 Saturation 91.8 % (92-98.5)
[2021-04-11] MEDS ORDERED: ALBUTEROL 2.5 MG/3 ML NEB SOL NEB PRN (18:00)
[2021-04-11] MEDS ORDERED: IPRATROPIUM BROM 0.5MG/2.5ML NEB PRN (18:00)
[2021-04-11] MEDS: VANCOMYCIN 1.5 GM in NA CHLORIDE 0.9% 500 ML IVPB SCH (21:49)
[2021-04-11] MEDS: HALOPERIDOL LACT 5 MG/ML INJ IV PRN (23:50)
[2021-04-12] MEDS: INSULIN -REGULAR HUMAN 50 UNIT/0.5 ML ML SQ SCH ×4 (00:03→16:53)
[2021-04-12 05:17] LABS: Absolute Lymphocytes (CBC) 0.3 K/uL (0.7-4.9); Basophils % 0.2 % (0-1.3); Lymphocytes % 7.8 % (15.3-44.8); MPV 10.1 fL (7.6-11.3); RBC Red Blood Cell Count 3.51 M/uL (3.86-4.86)
[2021-04-12 05:43] LABS: Albumin 1.8 g/dL (3.4-5.0); Bilirubin Direct 0.4 mg/dL (0-0.2); Bilirubin Total 0.8 mg/dL (0.2-1.0); Ferritin 1545.1 ng/mL (8-388); Magnesium 2.2 mg/dL (1.8-2.4); Phosphorus 4.1 mg/dL (2.5-4.9); Potassium 4.1 mmol/L (3.5-5.1); Protein, Total 6.1 g/dL (6.4-8.2)
--- NOTE | 2021-04-12 07:54 | RAD REPORT ---
EXAM DESCRIPTION: RAD - Chest Single View - 04/12/2021 5:57 am CLINICAL HISTORY: resp failure and pneumothorax COMPARISON: April 11 TECHNIQUE: AP portable chest image was obtained 04/12/2021 5:57 am . FINDINGS: ET tube is in place. Tip is top of the aortic arch 3 cm above the evie. Feeding tube ext ends below the diaphragm, off the field of view. Bilateral interstitial and alveolar opacities are present not substantially different from the prior day study. Heart size remains prominent. No measurable pleural effusion and no pneumothorax. No acute bony abnormality seen. No acute aortic findings suspected. IMPRESSION: Bilateral airspace disease from pneumonia, failure, volume overload or a combination. Pa ttern is stable from prior day imaging. ET tube in good position as detailed.
[2021-04-12] MEDS: REMDESIVIR (EUA) 100 MG in NA CHLORIDE 0.9% 250 ML IV SCH (08:58)
[2021-04-12] MEDS: FAMOTIDINE 20 MG/2 ML VIAL IV SCH (08:59)
[2021-04-12] MEDS: METHYLPREDNISOLONE 125 MG INJ IV SCH ×2 (08:59→20:53)
[2021-04-12] MEDS: AMLODIPINE 5 MG TAB PO SCH (08:59)
[2021-04-12] MEDS: APIXABAN 5 MG TABLET PO SCH ×2 (09:00→20:53)
[2021-04-12] MEDS: CEFEPIME/SWI 1gm 10 ML IV SCH ×2 (09:00→20:53)
[2021-04-12] MEDS: VITAMIN D 1000 UNIT TAB PO SCH (09:01)
[2021-04-12] MEDS: ZINC SULFATE 220 MG CAP PO SCH (09:01)
[2021-04-12] MEDS: BARICITINIB 2 MG TABLET PO SCH (10:10)
--- NOTE | 2021-04-12 10:40 | P.PN ---
Subjective Date of Service: 04/12/21 Chief Complaint: resp failure Mild inc in Fio2 Review of Systems is unable to be obtained Physical Examination - Vital Signs Temperature: 97.0 F Blood Pressure: 121/56 Pulse: 54 Respirations: 41 Pulse Ox (%): 86 - Physical Exam General: Comatose Assessment & Plan - Problems (Diagnosis) (1) Pneumonia due to COVID-19 virus Current Visit: Yes Status: Acute Plan: Resp failure/CXRY rev/ renal failure start on IVF fluids
[2021-04-12] MEDS: NACHLORIDE 0.45% 1,000 ML IV SCH (10:45)
[2021-04-12] MEDS ORDERED: VANCOMYCIN 1.5 GM in NA CHLORIDE 0.9% 500 ML IVPB SCH (12:00)
[2021-04-12] MEDS ORDERED: NACHLORIDE 0.45% 1,000 ML IV ONE (12:57)
[2021-04-12] MEDS: MIDAZOLAM HCL 100 MG in NA CHLORIDE 0.9% 80 ML IV PRN (14:21)
[2021-04-12] MEDS ORDERED: GLUCAGON 1 MG/VIAL IM PRN (14:32)
[2021-04-12] MEDS ORDERED: D50W 25 GM/50 ML SYRINGE IV PRN (14:32)
[2021-04-12] MEDS ORDERED: VANCOMYCIN 1.25 GM in NA CHLORIDE 0.9% 250 ML IVPB SCH (15:00)
[2021-04-12] MEDS: ASCORBIC ACID 500 MG TABLET FT SCH (15:31)
--- NOTE | 2021-04-12 15:50 | PN ---
Subjective: The patient still sedated on mechanical ventilation. Objective: Vital Signs: Blood pressure 120/56; pulse 54; respiratory rate earlier this morning was up in the 40s, however, now is down to the 20s Heart: Yayo. Regular rate. Chest: Bilateral crackles. Abdomen: Soft, benign. Neurologic: Sedated. Extremities: Chronic lymph edema. Minimal erythema at baseline. Laboratory Data: Blood sugar fingersticks in the 200 to 300 noted. White cell count 4.1, hemoglobin 10.4, hematocrit 31, platelets 130. Chemistry; BUN 86, creatinine 1.81, GFR 27. C-reactive protein went down to 74. Chest x-ray, bilateral pulmonary opacities, stable Storey study. Assessment And Plan: 1.COVID pneumonia, on mechanical ventilation because of acute respiratory failure from that. We velma l continue support on this. The patient has been given ivermectin. She is now also on Solu-Medrol 8 0 mg IV q.12. She is on remdesivir 100 mg IV q.24 for [address] Mars. 2.Acute renal failure on chronic. We just started NG tube feeding. We will go ahead and also as pe r Dr. Mars, I have started her on IV fluids who thinks the patient is a bit volume depleted and t hat should improve her renal function. 3.Blood sugar fingersticks show elevated blood sugar after starting NG tube feeding. We will go ahe ad and put her on Lantus 15 units subcutaneous daily and continue the sliding scale. 4.Anemia of chronic illness, stable. Look orders for details. MFS/MODL Voice ID: [id number] Report ID: [id number]
[2021-04-12] MEDS ORDERED: INSULIN GLARGINE 100 UNITS/ML SQ SCH (17:00)
[2021-04-12] MEDS: VITAL HP 1,000 ML BOT RTH SCH (18:47)
[2021-04-12] MEDS: FENTANYL CITR 100 MCG/2 ML IV PRN (21:45)
[2021-04-13] MEDS: MIDAZOLAM HCL 100 MG in NA CHLORIDE 0.9% 80 ML IV PRN (00:49)
[2021-04-13] MEDS: INSULIN -REGULAR HUMAN 50 UNIT/0.5 ML ML SQ SCH ×5 (00:50→19:04)
[2021-04-13] MEDS: FENTANYL CITR 100 MCG/2 ML IV PRN (03:02)
[2021-04-13] MEDS: LORazepam 2 MG/ML VIAL IV PRN (03:56)
[2021-04-13 05:18] LABS: Absolute Lymphocytes (CBC) 0.2 K/uL (0.7-4.9); Basophils % 0.2 % (0-1.3); Lymphocytes % 3.7 % (15.3-44.8); RBC Red Blood Cell Count 3.58 M/uL (3.86-4.86)
[2021-04-13 05:53] LABS: Arterial Blood Carboxyhemoglob 0.9 % (0-1.5); Blood Gas Oxyhemoglobin 93.7 % (94-97); Blood O2 Saturation 95.6 % (92-98.5)
[2021-04-13 05:57] LABS: Albumin 1.7 g/dL (3.4-5.0); Bilirubin Direct 0.3 mg/dL (0-0.2); Bilirubin Total 0.6 mg/dL (0.2-1.0); C-Reactive Protein 50.4 mg/L (<3.00); Magnesium 2.3 mg/dL (1.8-2.4); Potassium 4.2 mmol/L (3.5-5.1); Protein, Total 5.9 g/dL (6.4-8.2)
[2021-04-13] MEDS: NACHLORIDE 0.45% 1,000 ML IV SCH ×3 (06:18→20:18)
--- NOTE | 2021-04-13 07:22 | RAD REPORT ---
EXAM DESCRIPTION: [place] Single View04/13/2021 6:54 am CLINICAL HISTORY: Shortness of breath COMPARISON: April 12, 2020 FINDINGS: Endotracheal tube has its tip just above the evie. Enteric tube within the stomach. No significant change in bilateral pulmonary opacities. Heart remains enlarged. Right chest tube in p lace without visualization of a pneumothorax IMPRESSION: Endotracheal tube has its tip just above the evie. It should be retracted approximate ly centimeters. No significant change in the diffuse bilateral pulmonary opacities. Patient's nurse was notified 7:15 a.m. April 13, 2021
[2021-04-13 07:31] LABS: Ferritin 1153.4 ng/mL (8-388)
[2021-04-13] MEDS: METHYLPREDNISOLONE 125 MG INJ IV SCH ×2 (08:10→21:04)
[2021-04-13] MEDS: ASCORBIC ACID 500 MG TABLET FT SCH (08:10)
[2021-04-13] MEDS: FAMOTIDINE 20 MG/2 ML VIAL IV SCH (08:10)
[2021-04-13] MEDS: APIXABAN 5 MG TABLET PO SCH ×2 (08:10→21:03)
[2021-04-13] MEDS: VITAMIN D 1000 UNIT TAB PO SCH (08:10)
[2021-04-13] MEDS: ZINC SULFATE 220 MG CAP PO SCH (08:11)
[2021-04-13] MEDS: BARICITINIB 2 MG TABLET PO SCH (08:11)
[2021-04-13] MEDS: CEFEPIME/SWI 1gm 10 ML IV SCH (08:11)
[2021-04-13] MEDS: REMDESIVIR (EUA) 100 MG in NA CHLORIDE 0.9% 250 ML IV SCH (08:32)
[2021-04-13] MEDS ORDERED: D50W 25 GM/50 ML SYRINGE IV PRN (10:21)
[2021-04-13] MEDS ORDERED: GLUCAGON 1 MG/VIAL IM PRN (10:21)
--- NOTE | 2021-04-13 11:07 | P.PN ---
Subjective Date of Service: 04/13/21 Chief Complaint: resp failure O21 requirements have decreased/ oxygenation satifactory, renal failure is worse/ bradycardia Review of Systems is unable to be obtained Physical Examination - Vital Signs Temperature: 97.6 F Blood Pressure: 101/47 Pulse: 40 Respirations: 27 Pulse Ox (%): 98 - Physical Exam General: Unresponsive Assessment & Plan - Problems (Diagnosis) (1) Pneumonia due to COVID-19 virus Current Visit: Yes Status: Acute Plan: Resp failure o2 requirements decreasing/ CXry severe COVID penumonia/ Renal fucntion worse despite IV Fluids/consult nephrology/ Braycardia Propofil stopped Consult cardiology need pacemaker? ext/minimal air leak/wean doen on O2/ DC antibiotics for now/ on max tx with steroids. Remdesmoir andBracitinib. prognosis poor
[2021-04-13] MEDS: HALOPERIDOL LACT 5 MG/ML INJ IV PRN (14:46)
--- NOTE | 2021-04-13 15:22 | PN ---
Subjective: The patient is still sedated on mechanical ventilation. Objective: Vital Signs: Blood pressure 100/47, pulse 40, respiratory rate 27, temperature 97.6. Heart: Bradycardic, regular rate. Chest: Bilateral crackles. Abdomen: Soft, benign. Neurological examination: Sedated. Extremities: Lymphedema. No change. Diagnostic Data: CBC; white cell count 4.5, hemoglobin 10.5, hematocrit 32, platelets 42. Blood sug ar fingersticks in the 400, BUN 110, creatinine 2, GFR 24. Assessment And Plan: 1.Chronic obstructive pulmonary disease, pneumonia with multiple organ failure, respiratory and amanda l. We will continue supportive care and we will follow up Pulmonary recommendation. 2.Type 2 diabetes mellitus, on tube feeding. We will increase her Lantus to 25 units and keep her o n sliding scale. The chest x-ray showed no significant change. At this time, the patient's condition is not improving . We will keep monitoring her with supportive care and continue antibiotics and current treatment. Look orders for details. MFS/MODL Voice ID: [id number] Report ID: [id number]
[2021-04-13] MEDS ORDERED: INSULIN GLARGINE 100 UNITS/ML SQ SCH (17:00)
[2021-04-13] MEDS: ALBUMIN HUMAN 25% 100 ML IV SCH ×2 (20:01→23:57)
--- NOTE | 2021-04-13 20:53 | CON ---
Date of Consultation: 04/13/[address] Chamorro on 04/05/2021 with cellulitis. Reason For Consultation: Severe bradycardia. History Of Present Illness: Ms. Ovalles is 80, was found to have COVID pneumonia and cellulitis. Arias s been running a heart rate in the 30s today. Her last heart rate was 39 with a blood pressure 106/4 9. She is intubated. PO2 is 82, pCO2 49, pH of 7.35, blood glucose of 413, creatinine of 2.0. Her ferritin level was 1153. No chest pain and no hemodynamic compromise with her bradycardia. She is o n IV Versed drip which is probably causing her bradycardia and this is being weaned off. Allergies: SHE IS ALLERGIC TO ADHESIVE TAPE. Past Medical History: Includes dyslipidemia, diabetes, and hypertension. Medications: At home include Lipitor, Lasix, insulin, lisinopril, and Aldactone. Her present regime n right now includes Eliquis, Norvasc, Lasix, Haldol, insulin, lisinopril, Remdesivir, and antibiotic s. Physical Examination: Vital Signs: Heart rate of 39, blood pressure 106/49, intubated. Vital signs otherwise stable, afebr ile. HEENT: Negative. Neck: Supple with no bruit. Chest: Reveals crackles throughout the lung. Cardiac: Revealed a regular rhythm and rate. No murmurs, gallops, or rubs. Abdomen: Benign. Extremities: Revealed cellulitis. Diagnostic Data: As stated earlier. Impression And Plan: Bradycardia without any hypotension, probably secondary to IV Versed. Norvasc may be contributing and should be held, as her blood pressure is borderline. She should continue her Eliquis and Lasix. Her lisinopril should be held. Her Remdesivir antibiotic should be continued. Her creatinine is worse. GABRIELE inhibitor should be held as stated earlier. I see no reason at this po int for a pacemaker. She does need a pacemaker. She needs to go to [place]. I think an echocardiog nadeen was reasonable to obtain on Thursday to rule out cardiomyopathy. We will continue to follow her as needed. YOLANDE/CRISTO Voice ID: [id number] Report ID: [id number]
--- NOTE | 2021-04-13 22:42 | P.CNS ---
Date of Consult: 04/13/21 Reason for Consult: EMIGDIO Requesting Physician: Ranulfo Mars Chief Complaint: resp failure History of Present Illness: The patient is a 80-year-old female with chronic bilateral lower extremity lymphedema along with recurrent cellulitis in her legs. The patient started feeling increased shortness of breath over the past 3 days along with fever and chills. She came to the emergency room. She was found to have bilateral opacities and COVID positive testing, most likely COVID pneumonia. The patient also had increased redness in both her lower extremities and cellulitis in the joint area is considered also. 21:45 This 80 yrs old Female presents to ER via Wheelchair with complaints of cp Fever, Shortness Of Breath, Cellulitis/Lymphedema. 21:45 The patient has shortness of breath at rest. cp 21:45 Onset: The symptoms/episode began/occurred 2 day(s) ago. cp 21:45 Duration: The symptoms are continuous, and are steadily getting worse. The patient's cp shortness of breath is aggravated by exertion, supine position. Associated signs and symptoms: Pertinent positives: non-productive cough, fever, Pertinent negatives: chest pain, diaphoresis, vomiting. Severity of symptoms: in the emergency department the symptoms are unchanged despite home interventions. The patient reports fever, not measured (subjective). Allergies adhesive tape Allergy (Intermediate, Verified 06/21/20 22:23) Rash Home medications list reviewed: Yes Home Medications: Fluocinonide [Lidex] 1 gm TP DAILY PRN 07/12/15 Nystatin Cream [Mycostatin 100MU/Gm Cream*] 30 gm TP BID PRN 07/12/15 Alendronate Sodium [Fosamax] 70 mg PO SEECOM 09/28/19 Atorvastatin Calcium [Lipitor] 10 mg PO BEDTIME 09/28/19 Insulin Degludec [Tresiba] 30 units SQ DAILY 09/28/19 Lisinopril [Zestril] 20 mg PO DAILY 09/28/19 Ranitidine [Zantac] 150 mg PO DAILY 09/28/19 Spironolactone [Aldactone] 25 mg PO DAILY 09/28/19 Ciprofloxacin HCl [Cipro 500 MG Tablet] 1 tab PO BID 06/21/20 Doxycycline Hyclate 100 mg PO BID 06/21/20 Furosemide [Lasix] 40 mg PO DAILY #30 tab 06/23/20 - Past Medical/Surgical History Diabetic: Yes -: cellulitis rt leg -: lymphedema BOTH LEGS 1982 -: GERD -: DM -: Arthritis -: Breast cancer LEFT -: HLD -: HTN -: SLEEP APNEA -: Hysterectomy CERVICAL cancer 1970 -: D&C -: LYMPH NODE LEFT BREAST REMOVED 20-30 YEARS AGO - Family History Brother Medical History: Heart disease, Cancer Notes: sister also Sister Medical History: Heart disease, Diabetes Notes: OTHER OLDER SISTER WHO :HAD CANCER SON Medical History: Diabetes NEPHEW Medical History: Heart disease - Social History Smoking Status: Unknown if ever smoked Alcohol use: No CD- Drugs: No Caffeine use: Yes Place of Residence: Home Review of Systems is unable to be obtained Physical Examination Temp Pulse Resp BP Pulse Ox 97 F 42 L 31 H 109/49 L 91 04/13/21 20:00 04/13/21 20:00 04/13/21 20:00 04/13/21 20:00 04/13/21 20:00 General: In no apparent distress, Unresponsive HEENT: Atraumatic Neck: Supple Respiratory: Clear to auscultation bilaterally Cardiovascular: Regular rate/rhythm, Edema Gastrointestinal: Soft and benign, Non-distended Musculoskeletal: No clubbing, No contractures Integumentary: No rashes, No cyanosis, Other (BL LE Lichenification) Blood work reviewed in the chart. Imagings Data: EXAM DESCRIPTION: Danilo Single View04/13/2021 6:54 am CLINICAL HISTORY: Shortness of breath COMPARISON: April 12, 2020 FINDINGS: Endotracheal tube has its tip just above the evie. Enteric tube within the stomach. No significant change in bilateral pulmonary opacities. Heart remains enlarged. Right chest tube in place without visualization of a pneumothorax IMPRESSION: Endotracheal tube has its tip just above the evie. It should be retracted approximately centimeters. No significant change in the diffuse bilateral pulmonary opacities. Conclusions/Impression: EMIGDIO may be due to hypovolemia Uremia likely due to steroids -No NSAIDs -Continue IVF with 1/2NS -Give IV Albumin X2 Hypocalcemia -Continue Vitamin D3 HyperPO4 Septic Shock/ Hypotension -Give IV albumin x2 doses -Norepi as needed DM II with hyperglycemia & CKD -Continue Lantus -Aggressive RISS Severe malnutrition -Consider tube feeds -Give IV albumin x2 doses Anemia in chronic illness -Monitor H&H Acute hypoxic respiratory failure COVID-19 PNA -Ventilatory support as ordered -Continue Solumedrol -Continue Remdesevir Thank you kindly for the consultaiton Critical Care: Yes (>30min)
[2021-04-14] MEDS: INSULIN -REGULAR HUMAN 50 UNIT/0.5 ML ML SQ SCH ×4 (00:16→17:08)
[2021-04-14] MEDS: NACHLORIDE 0.45% 1,000 ML IV SCH ×3 (02:45→16:05)
[2021-04-14 05:08] LABS: Absolute Lymphocytes (CBC) 0.2 K/uL (0.7-4.9); Basophils % 0.1 % (0-1.3); Hematocrit 32.2 % (36.0-45.0); Lymphocytes % 3.4 % (15.3-44.8); MPV 9.6 fL (7.6-11.3); RBC Red Blood Cell Count 3.62 M/uL (3.86-4.86)
[2021-04-14 05:30] LABS: Albumin 2.7 g/dL (3.4-5.0); Bilirubin Direct 0.4 mg/dL (0-0.2); Bilirubin Total 0.8 mg/dL (0.2-1.0); C-Reactive Protein 32.7 mg/L (<3.00); Ferritin 1003.6 ng/mL (8-388); Phosphorus 3.6 mg/dL (2.5-4.9); Potassium 3.9 mmol/L (3.5-5.1); Protein, Total 6.4 g/dL (6.4-8.2)
[2021-04-14 05:57] LABS: Urine Protein/Creatinine Ratio 2.19 ratio (<0.15)
[2021-04-14 06:18] LABS: Urine Appearance TURBID (Clear); Urine Bilirubin NEGATIVE (Negative); Urine Blood 2+ (Negative); Urine Color YELLOW (Yellow); Urine Glucose 1+ (Negative); Urine Protein 2+ (Negative); Urine Specific Gravity 1.015 (1.005-1.030); Urine Urobilinogen 0.2 mg/dL (0.2-1.0); Urine pH 5.5 (5.0-7.0)
[2021-04-14 06:35] LABS: Urine Bacteria <20 /HPF (<20); Urine RBC <5 /HPF (NONE SEEN); Urine Yeast MANY (NONE SEEN)
--- NOTE | 2021-04-14 07:25 | RAD REPORT ---
EXAM DESCRIPTION: RAD - Chest Single View - 04/14/2021 6:43 am CLINICAL HISTORY: resp failure and pneumothorax COMPARISON: April 13, April 12 TECHNIQUE: AP portable chest image was obtained 04/14/2021 6:43 am . FINDINGS: ET tube tip is 3 cm above the evie, mid aortic arch level, in good position. Feeding tube extends below the diaphragm, off the field of view. Chest tube remains in place with the tip in the medial right base. No identifiable pneumothorax. Ante rior pneumothorax can be occult on portable imaging. Bilateral alveolar opacification is present not substantially different from prior imaging. Patient m ay have slight improvement on the right. Trachea is midline. Heart and vasculature are normal. No pneumothorax or enlarging pleural effusion. Trace amount of subcutaneous emphysema on the right. IMPRESSION: No significant change to the bilateral pulmonary opacities. Right lung field may be slig htly improved. ET tube, feeding tube and chest tube are in good position.
[2021-04-14] MEDS: METHYLPREDNISOLONE 125 MG INJ IV SCH ×2 (08:48→20:32)
[2021-04-14] MEDS: FAMOTIDINE 20 MG/2 ML VIAL IV SCH (08:48)
[2021-04-14] MEDS: VITAMIN D 1000 UNIT TAB PO SCH (08:48)
[2021-04-14] MEDS: ASCORBIC ACID 500 MG TABLET FT SCH (08:49)
[2021-04-14] MEDS: BARICITINIB 2 MG TABLET PO SCH (08:49)
[2021-04-14] MEDS: APIXABAN 5 MG TABLET PO SCH ×2 (08:49→20:32)
[2021-04-14] MEDS: REMDESIVIR (EUA) 100 MG in NA CHLORIDE 0.9% 250 ML IV SCH (09:28)
--- NOTE | 2021-04-14 13:17 | PN ---
Date of Progress Note: 04/14/2021 Ms. Ovalles is here for COVID and cellulitis. She was seen by me because of bradycardia. She was on IV Versed and that was weaned off. Today, her heart rate is 50. She is normotensive. Creatinine r emains elevated at 2.0 with elevated ferritin and remains hypoxic. Echocardiogram is pending for Thu. We will continue to follow her. No change in therapy at this point. YOLANDE/CRISTO Voice ID: [id number] Report ID: [id number]
[2021-04-14] MEDS ORDERED: GLUCAGON 1 MG/VIAL IM PRN (14:41)
[2021-04-14] MEDS ORDERED: D50W 25 GM/50 ML SYRINGE IV PRN (14:41)
--- NOTE | 2021-04-14 15:54 | PN ---
Subjective: The patient is not on Versed sedation; however, she only responds to calling her name on stimuli. She will move her head and shut her eyes forcefully, but will not respond more than that. She . Heart rate is better in the 60s to 70s. Objective: Vital Signs: Blood pressure 132/58, temperature 96.9. Heart: As mentioned. Regular rate. Chest: Bilateral crackles. Abdomen: Soft, benign. Neurological: As above. Extremities: Chronic lymphedema unchanged. Laboratory Data: White cell count 5.6, hemoglobin 10.6, hematocrit 32.1, platelets 131. BUN 121, cr eatinine 1.85, GFR 26. Blood sugar fingersticks in the 400s. Assessment And Plan: 1.COVID pneumonia, clinically stable, but no significant improvement. 2.Semicomatose. She is still responding, but she is not actively awake. Off the Versed. Expect th at to improve with furthermore not giving any sedation. 3.Type 2 diabetes. We will increase her Lantus to 40 units and continue her on sliding scale. 4.Acute renal failure on top of chronic, clinically stable. 5.Chronic anemia of chronic illness, stable. Look orders for details. MFS/MODL Voice ID: [id number] Report ID: [id number]
[2021-04-14] MEDS ORDERED: INSULIN GLARGINE 100 UNITS/ML SQ SCH (17:00)
--- NOTE | 2021-04-14 20:46 | P.PN ---
Subjective Date of Service: 04/14/21 Chief Complaint: resp failure Nc Stabel/ Renal function is worse Review of Systems is unable to be obtained Physical Examination - Vital Signs Temperature: 96.9 F Blood Pressure: 141/61 Pulse: 53 Respirations: 25 Pulse Ox (%): 91 Assessment & Plan - Problems (Diagnosis) (1) Pneumonia due to COVID-19 virus Current Visit: Yes Status: Acute Plan: Resp failure NC renal function is worse S/B Nephrology onIVF. Severe hyperglycemia/ Inc lantus/ CXRY NC/ prognosis poor
[2021-04-15] MEDS: INSULIN -REGULAR HUMAN 50 UNIT/0.5 ML ML SQ SCH ×5 (00:13→23:55)
[2021-04-15] MEDS: NACHLORIDE 0.45% 1,000 ML IV SCH ×3 (00:14→16:16)
[2021-04-15 05:13] LABS: Hematocrit 35.8 % (36.0-45.0); RBC Red Blood Cell Count 4.03 M/uL (3.86-4.86)
[2021-04-15 05:14] LABS: Absolute Lymphocytes (CBC) 0.2 K/uL (0.7-4.9); Basophils % 0.2 % (0-1.3); Lymphocytes % 1.4 % (15.3-44.8); MPV 9.9 fL (7.6-11.3)
[2021-04-15 05:32] LABS: C-Reactive Protein 25.1 mg/L (<3.00); Ferritin 1152.7 ng/mL (8-388); Magnesium 2.2 mg/dL (1.8-2.4); Potassium 3.9 mmol/L (3.5-5.1); Thyroid Stimulating Hormone 1.42 uIU/mL (0.360-3.740); Uric Acid 3.7 mg/dL (2.6-6.0)
[2021-04-15 05:56] LABS: Blood Morphology Comment NOT SEEN (NOT SEEN); Platelet Estimate ADEQ
[2021-04-15 06:03] LABS: Arterial Blood Carboxyhemoglob 1.2 % (0-1.5); Blood Gas Oxyhemoglobin 91.1 % (94-97); Blood O2 Saturation 93.1 % (92-98.5)
[2021-04-15] MEDS: VITAL HP 1,000 ML BOT RTH SCH (06:53)
--- NOTE | 2021-04-15 07:06 | RAD REPORT ---
EXAM DESCRIPTION: RAD - Chest Single View - 04/15/2021 6:20 am CLINICAL HISTORY: resp failure and pneumothorax COMPARISON: Chest Single View dated 04/14/2021; Chest Single View dated 04/13/2021; Chest Single View dated 04/12/2021; Chest Single View dated 04/11/2021 FINDINGS: Widespread bilateral airspace disease. Endotracheal tube terminates at the aortic arch. En teric tube below the diaphragm. Similar cardiac size perNo acute osseous abnormality. No significant pleural effusions or pneumothorax. IMPRESSION: Similar widespread bilateral airspace disease compared with 04/14/2021. Support apparatu s in stable position.
[2021-04-15] MEDS: FENTANYL CITR 100 MCG/2 ML IV PRN (07:21)
[2021-04-15] MEDS ORDERED: INSULIN GLARGINE 100 UNITS/ML SQ SCH ×3 (09:00→17:00)
[2021-04-15] MEDS: METHYLPREDNISOLONE 40 MG INJ IV SCH ×2 (09:09→19:53)
[2021-04-15] MEDS: FAMOTIDINE 20 MG/2 ML VIAL IV SCH (09:09)
[2021-04-15] MEDS: ASCORBIC ACID 500 MG TABLET FT SCH (09:09)
[2021-04-15] MEDS: APIXABAN 5 MG TABLET PO SCH ×2 (09:09→19:52)
[2021-04-15] MEDS: BARICITINIB 2 MG TABLET PO SCH (09:09)
[2021-04-15] MEDS: VITAMIN D 1000 UNIT TAB PO SCH (09:09)
[2021-04-15] MEDS ORDERED: GLUCAGON 1 MG/VIAL IM PRN (11:39)
[2021-04-15] MEDS ORDERED: D50W 25 GM/50 ML SYRINGE IV PRN (11:39)
--- NOTE | 2021-04-15 14:18 | ECHO ---
HEIGHT: 4 ft 9 in WEIGHT: 215 lb 9.793 oz DATE OF STUDY: 04/15/[address]: Cameron Peterson MD 2-DIMENSIONAL: YES M.MODE: YES DOPPLER: YES COLOR FLOW: YES TDS: PORTABLE: YES DEFINITY: BUBBLE STUDY: DIAGNOSIS: BRADYCARDIA CARDIAC HISTORY: CATHERIZATION: NO SURGERY: NO PROSTHETIC VALVE: NO PACEMAKER: NO MEASUREMENTS (cm) DIASTOLIC (NORMALS) SYSTOLIC (NORMALS) IVSd 1.1 (0.6-1.2) LA Diam 2.1 (1.9-4.0) LVEF 63% LVIDd 3.7 (3.5-5.7) LVIDs 2.5 (2.0-3.5) %FS 33% LVPWd 1.1 (0.6-1.2) Ao Diam 2.6 (2.0-3.7) 2 DIMENSIONAL ASSESSMENT: RIGHT ATRIUM: NORMAL LEFT ATRIUM: NORMAL RIGHT VENTRICLE: NORMAL LEFT VENTRICLE: NORMAL TRICUSPID VALVE: MILD TRICUSPID REGURGITATION MITRAL VALVE: NORMAL PULMONIC VALVE: NORMAL AORTIC VALVE: NORMAL PERICARDIAL EFFUSION: NONE AORTIC ROOT: NORMAL LEFT VENTRICULAR WALL MOTION: NORMAL DOPPLER/COLOR FLOW: MILD TRICUSPID REGURGITATION COMMENTS: NORMAL LEFT VENTRICULAR EJECTION FRACTION 55-60%. NORMAL WALL MOTION. MILD TRICUSPID REGURGITATION. TECHNOLOGIST: TREVOR PETER
--- NOTE | 2021-04-15 19:05 | P.PN ---
Subjective Date of Service: 04/15/21 Chief Complaint: resp failure Nc stable/ Bradycardia resolved Review of Systems is unable to be obtained Physical Examination - Vital Signs Temperature: 97.9 F Blood Pressure: 123/77 Pulse: 93 Respirations: 33 Pulse Ox (%): 89 - Physical Exam General: Unresponsive Assessment & Plan - Problems (Diagnosis) (1) Pneumonia due to COVID-19 virus Current Visit: Yes Status: Acute Plan: Resp failure/ renal function improving/Resp fialur eET satisfac/ o2 requirement declining/ NE of cellulitis/ Refer to LTAC DW daughter/ no pneumo or airleak
--- NOTE | 2021-04-15 22:35 | PN ---
Date of Progress Note: 04/15/2021 Ms. Ovalles has been followed for bradycardia. She remains bradycardic. Her heart rate today at 36, blood pressure is 125/75. She is in atrial fibrillation with slow ventricular response. The patien t has COVID. She is intubated. Last pO2 is 66, pCO2 is 38, pH is 7.4. Her creatinine is 1.65, whic h is improved. She is not really a candidate for pacemaker therapy at this point with normal blood p ressure. We can use atropine. We can use dopamine or dobutamine to increase the heart rate if her b lood pressure drops. She is on Eliquis. She is not on any beta-tamie or calcium tamie. Occasyuko castly gets some Haldol. She has an echocardiogram pending today. We will continue to follow her. YOLANDE/CRISTO Voice ID: [id number] Report ID: [id number]
--- NOTE | 2021-04-15 22:36 | PN ---
Subjective: The patient is seen in ICU room #7. She is a 80-year-old female status post COVID pneum onia with bilateral infiltrates/patchy pneumonia on x-ray. She is still not waking up despite the fa ct that sedation has been discontinued. She is currently on vent support with about 50% oxygen. She was slightly agitated this morning, with respiratory rates going up and seemed to be uncomfortable, so fentanyl was administered. The patient is off the Versed, but still seems like she has encephalop athy and not waking up. The patient's kidney function seems to be stabilizing somewhat with a creati nine at about 1.65 range from the 2 range about a couple of days ago. However, the patient continues to have elevated BUN, which can also partly be from the steroids and from high catabolism. The wan ent is continuing to be in guarded condition, requiring significant support for her breathing, wherea s her kidney function seems to be stabilizing now. She still is with quite bad prognosis and in guar ded condition. Her vitals are reviewed. Physical Examination: Vital Signs: Blood pressure 125/81, pulse about 80-90, irregularly irregular. She has been in atria l fibrillation since yesterday. Afebrile. Glucose is running above 400, O2 sats in 92% on vent supp ort. Lungs: With bilateral wheezing anteriorly with good air entry bilaterally. Abdomen: Soft. Extremities: Reveal edema and lymphadenopathy, which is worse on the right side than left. Cellulit is does not seem to be apparent. The patient did have cellulitis earlier, but this seems to have res olved. Laboratory Data: Shows WBC 12.9, hemoglobin 11.8, hematocrit 35.8, platelet count of 185. Sodium 13 9, potassium 3.9, chloride 105, bicarb 25. BUN and creatinine are 110 and 1.65. X-ray with bilateral pneumonia on April 15. Assessment And Plan: The patient with cellulitis, acute kidney injury, COVID-19 pneumonia, uremia pa rtially likely secondary to high catabolism and steroids. The patient seems to be in guarded conditi on with significant respiratory failure. Renal function seems to be stabilizing at this point. We w ill continue IV fluid gentle 75 cc an hour with gastric tube nutrition. The patient will need to be closely monitored for her mentation, seems to have encephalopathy, likely secondary to COVID. If thi s is not improving, may consider getting a CAT scan to evaluate if the patient has any other process, explaining the change in mental condition. Seems currently that this is multifactorial with acute k idney injury and encephalopathy likely secondary to COVID-19. Continue gentle IV hydration. Continu e nutrition as tolerated. We will need to closely monitor. She has already had ivermectin. She alr michael has remdesivir and currently is getting steroids. Continue respiratory support with oxygen and vent support. Sedation is off, but it is concerning that the patient is not alert and responsive. W e will get a basic metabolic panel again tomorrow. /JOHANAL Voice ID: [id number] Report ID: [id number]
[2021-04-16] MEDS: NACHLORIDE 0.45% 1,000 ML IV SCH ×3 (01:31→16:56)
[2021-04-16] MEDS: FENTANYL CITR 100 MCG/2 ML IV PRN (04:00)
[2021-04-16 05:32] LABS: Potassium 4.3 mmol/L (3.5-5.1)
[2021-04-16] MEDS: INSULIN -REGULAR HUMAN 50 UNIT/0.5 ML ML SQ SCH ×3 (07:05→16:53)
--- NOTE | 2021-04-16 07:46 | RAD REPORT ---
EXAM DESCRIPTION: Danilo Single View04/16/2021 6:26 am CLINICAL HISTORY: Respiratory failure COMPARISON: April 15 FINDINGS: Endotracheal tube with its tip 5 millimeters above the top of the aortic arch. Feeding tube enters stomach. The tip is not included in the field of view. Minimal worsening in right and minimal improvement in left pulmonary opacities. Heart remains enlarge d IMPRESSION: Minimal worsening in right and minimal improvement in left pulmonary opacities probably pneumonia
[2021-04-16] MEDS: VITAMIN D 1000 UNIT TAB PO SCH (09:27)
[2021-04-16] MEDS: METHYLPREDNISOLONE 40 MG INJ IV SCH ×2 (09:27→20:30)
[2021-04-16] MEDS: FAMOTIDINE 20 MG/2 ML VIAL IV SCH (09:28)
[2021-04-16] MEDS: BARICITINIB 2 MG TABLET PO SCH (09:28)
[2021-04-16] MEDS: APIXABAN 5 MG TABLET PO SCH ×2 (09:28→20:30)
[2021-04-16] MEDS: ASCORBIC ACID 500 MG TABLET FT SCH (09:28)
[2021-04-16] MEDS: LORazepam 2 MG/ML VIAL IV PRN ×3 (10:24→19:33)
--- NOTE | 2021-04-16 12:01 | PN ---
Date of Progress Note: 04/16/2021 Ms. Ovalles remains bradycardic with normal blood pressure. Has COVID and elevated creatinine. Echo cardiogram which was done yesterday showed normal ejection fraction, normal wall motion, no evidence of cardiomyopathy or effusion. Again, her blood pressure remains adequate. No need for pacemaker at this point. I think if she improves from the COVID standpoint down the road, we will consider event monitor and if her heart rate remains low, she may need a pacemaker down the road. YOLANDE/CRISTO Voice ID: [id number] Report ID: [id number]
--- NOTE | 2021-04-16 13:30 | PN ---
Subjective: The patient is seen in Intensive Care Unit in Room 7 on Third Floor at [facility] [place]. The patient is somewhat improved compared to yesterday. She does open her eyes due to commands. She still is in atrial fibrillation and rate seems to be controlled. Her heart rate o n my evaluation was around 70. Her blood pressure has been running on the lower side between 100-120 systolic range. Last blood pressure was 98/57. Currently on exam, blood pressure is in the low 100 systolic range. Her pulse is around 80-90 on my evaluation. She is in atrial fibrillation with irr egularly irregular heart rate. Abdomen is soft. O2 sats are in mid 90 range. She has a lower oxyge n requirement at 50% today. Lungs clear anteriorly with wheezes and crackles at the bases bilateral. Extremities reveal edema about the same as yesterday with right more than left with lymphedema bila terally. Laboratory Data: Reviewed. Labs show WBC 12.9, hemoglobin 11.8, hematocrit 35.8, platelet count 185 . This was lab work from yesterday. Chemistries from today show sodium 139, potassium 4.3, chloride 106, bicarb 27, BUN and creatinine have slightly improved from yesterday when it was 110, today when it is 105 BUN; and creatinine when it was 1.65 yesterday to 1.49 today. Calcium is at 8.1, it was 7 .9 yesterday. C-reactive protein was 25, yesterday 25.1, and TSH was 1.42 yesterday. Assessment And Plan: The patient is a 80-year-old female with COVID-19 pneumonia. At this point, sh e seems to have stabilized a little bit compared to yesterday, more alert; however, did require some sedation earlier in the day due to agitation and is now sleeping comfortably, still on ventilator. O 2 requirements have gone down to about 50%. She is on SIMV and seems comfortable on the vent. IV fl uids are continued at half normal saline at 35 mL an hour. Her BUN and creatinine have improved slig htly. Continue with current volume repletion and plan to check lab work again tomorrow with BMP. Discussed case also with the nursing s milagros. /CRISTO Voice ID: [id number] Report ID: [id number]
[2021-04-16] MEDS ORDERED: GLUCAGON 1 MG/VIAL IM PRN (16:13)
[2021-04-16] MEDS ORDERED: D50W 25 GM/50 ML SYRINGE IV PRN (16:13)
[2021-04-16] MEDS: INSULIN GLARGINE 100 UNITS/ML SQ SCH (16:54)
--- NOTE | 2021-04-16 17:15 | P.PN ---
Subjective Date of Service: 04/16/21 Chief Complaint: resp failure Patient is improved patient's condition seems to be improving oxygen requirements are declining Review of Systems is unable to be obtained Physical Examination - Vital Signs Temperature: 98.0 F Blood Pressure: 99/56 Pulse: 94 Respirations: 31 Pulse Ox (%): 91 - Physical Exam General: Unresponsive Assessment & Plan - Problems (Diagnosis) (1) Pneumonia due to COVID-19 virus Current Visit: Yes Status: Acute Plan: Respiratory failure oxygen requirements are declining renal function and renal function improving currently on 50% currently on 50% FiO2 labs reviewed
--- NOTE | 2021-04-16 19:58 | PN ---
Subjective: The patient as per nurses has been more waking up, however, was fighting the machine and fighting the IV lines, so she was sedated with a small dose of Versed. Right now, she is sedated. Objective: Vital Signs: Her blood pressure 103/68, pulse 86, temperature 97.7. The patient is in a trial fibrillation with rate control. Heart: Regular rate and rhythm. Chest: Bilateral crackles. Abdomen: Soft, benign. Bowel sounds are active. Extremities: Chronic lymphedema. No erythema. Neurological: The patient is sedated. Laboratory Data: Blood sugar fingersticks down to the 300s. Assessment And Plan: 1.COVID pneumonia. The chest x-ray today showed slight improvement on the left with slight worsenin g of opacity on the right side. The patient's, however, clinical picture showed mild improvement cli nically. As she is waking up and she is not requiring more oxygen, we will go ahead and continue wit h supportive care. We will follow up her labs pending transfer for LTAC. Her respiratory failure, I think she is going to need more time to wean her off; however, Dr. Mars is following this with u s. 2.Type 2 diabetes. before we will go ahead and increase her Lantus to 60 units subcutane ous the patient is also on IV Solu-Medrol. When we stopped that, we are going to ___ her Lantus. For now, we are going to increase it to 60. Look orders for details. MFS/MODL Voice ID: [id number] Report ID: [id number]
[2021-04-16] MEDS: HALOPERIDOL LACT 5 MG/ML INJ IV PRN (23:11)
[2021-04-17] MEDS: INSULIN -REGULAR HUMAN 50 UNIT/0.5 ML ML SQ SCH ×4 (00:10→17:39)
[2021-04-17] MEDS: LORazepam 2 MG/ML VIAL IV PRN (03:21)
[2021-04-17 04:57] LABS: Absolute Lymphocytes (CBC) 0.3 K/uL (0.7-4.9); Basophils % 0.4 % (0-1.3); Hematocrit 35.7 % (36.0-45.0); Lymphocytes % 1.3 % (15.3-44.8); MPV 9.9 fL (7.6-11.3); RBC Red Blood Cell Count 4.06 M/uL (3.86-4.86)
[2021-04-17] MEDS: VITAL HP 1,000 ML BOT RTH SCH (05:00)
[2021-04-17 05:23] LABS: Arterial Blood Carboxyhemoglob 1.3 % (0-1.5); Blood Gas Oxyhemoglobin 93.2 % (94-97); Blood O2 Saturation 95.3 % (92-98.5)
[2021-04-17 05:38] LABS: C-Reactive Protein 16.2 mg/L (<3.00); Ferritin 904.2 ng/mL (8-388); Magnesium 2.2 mg/dL (1.8-2.4); Phosphorus 2.8 mg/dL (2.5-4.9); Potassium 4.7 mmol/L (3.5-5.1)
[2021-04-17 07:39] LABS: Blood Morphology Comment NOT SEEN (NOT SEEN); Platelet Estimate ADEQ
--- NOTE | 2021-04-17 07:45 | RAD REPORT ---
EXAM DESCRIPTION: RAD - Chest Single View - 04/17/2021 6:21 am CLINICAL HISTORY: resp failure, intubation COMPARISON: April 16 TECHNIQUE: AP portable chest image was obtained 04/17/2021 6:21 am . FINDINGS: Lung volumes of improved slightly. Extensive interstitial and alveolar opacities are still present similar or fractionally improved. Right-sided chest tube remains in place with the tip in the medial right base. No measurable pneumoth orax. An anterior pneumothorax can be occult on a portable examination. ET tube tip is 3 centimeter above the evie mid aortic arch level. Feeding tube is below the diaphra gm, off the field of view. Heart and vasculature are normal. No measurable pleural fluid. No acute bony abnormality seen. No ac ramu aortic findings suspected. IMPRESSION: Bilateral pulmonary opacities similar or slightly improved from prior day imaging. Chest tube remains in good position tip in the medial right base. No identifiable right-sided pneumot horax. ET tube in good position. Tip of the feeding tube is off the field of view.
[2021-04-17] MEDS: APIXABAN 5 MG TABLET PO SCH ×2 (08:59→20:11)
[2021-04-17] MEDS: FAMOTIDINE 20 MG/2 ML VIAL IV SCH (08:59)
[2021-04-17] MEDS: VITAMIN D 1000 UNIT TAB PO SCH (08:59)
[2021-04-17] MEDS: ASCORBIC ACID 500 MG TABLET FT SCH (09:00)
[2021-04-17] MEDS: BARICITINIB 2 MG TABLET PO SCH (09:00)
[2021-04-17] MEDS: METHYLPREDNISOLONE 40 MG INJ IV SCH ×2 (09:00→20:11)
[2021-04-17] MEDS: NACHLORIDE 0.45% 1,000 ML IV SCH ×2 (13:03→18:20)
--- NOTE | 2021-04-17 14:36 | RAD REPORT ---
EXAM DESCRIPTION: RAD - Chest Single View - 04/17/2021 2:27 pm CLINICAL HISTORY: pneumonia Chest pain. COMPARISON: Chest Single View dated 04/17/2021; Chest Single View dated 04/16/2021; Chest Single View dated 04/15/2021; Chest Single View dated 04/14/2021 FINDINGS: Portable technique limits examination quality. Tip of the endotracheal tube is at the level of the superior margin of the aortic arch. Enteric tube descends into the upper abdomen. Right-sided chest tube is unchanged in position. Mild worsening in b ilateral pulmonary opacities are seen since prior study.The heart is upper limit of normal in size. IMPRESSION: Mild worsening in lung aeration since earlier study.
--- NOTE | 2021-04-17 16:23 | PN ---
Subjective: The patient is still on mechanical ventilation. She responds to the painful stimuli by opening her eyes, but still intubated. Objective: Heart: Regular rate and rhythm. Chest: Bilateral crackles. Abdomen: Soft, benign. Neurological: As above. Extremities: Chronic lymphedema. No change. The patient is down so IMV of 45% on mechanical ventil ation. Assessment And Plan: The patient is doing slightly better; however, her white cell count on her lab went up to 21,000. The rest of her CBC is noted and her GFR is slightly better at 39. Still the pat ient is in acute respiratory failure slightly better and acute renal failure slightly better; however , leukocytosis, we will follow up on that. On her diabetes, she is in the 200s on her blood sugar an d we will continue that with a sliding scale. We will continue supportive care pending transfer to [facility]. MFS/MODL Voice ID: [id number] Report ID: [id number]
[2021-04-17] MEDS: INSULIN GLARGINE 100 UNITS/ML SQ SCH (17:38)
--- NOTE | 2021-04-17 18:24 | P.PN ---
Subjective Date of Service: 04/17/21 Chief Complaint: resp failure Stable oxygenation improving/Altered mental status Review of Systems is unable to be obtained Physical Examination - Vital Signs Temperature: 98 F Blood Pressure: 124/74 Pulse: 101 Respirations: 26 Pulse Ox (%): 91 Assessment & Plan - Problems (Diagnosis) (1) Pneumonia due to COVID-19 virus Current Visit: Yes Status: Acute Plan: Resp failure Oxygen requirement have declined/ WBC elevated/ on Max therapy/CXry reviewed
[2021-04-17 18:49] LABS: HBsAG Nonreactive (Nonreactive)
--- NOTE | 2021-04-17 22:28 | P.PN ---
Date of Service: 04/17/21 Vital Signs Temp Pulse Resp BP Pulse Ox 98.0 F 102 H 25 H 105/50 L 95 04/17/21 20:00 04/17/21 22:00 04/17/21 22:00 04/17/21 22:00 04/17/21 22:00 Medications Acetaminophen (Acetaminophen 500 Mg Tab) 500 mg PO Q6H PRN PRN Reason: TEMP > 100' F Last Admin: 04/05/21 07:17 Dose: 500 mg Documented by: Apixaban (Apixaban 5 Mg Tablet) 5 mg PO BID [facility] Last Admin: 04/17/21 20:11 Dose: 5 mg Documented by: Ascorbic Acid (Ascorbic Acid 500 Mg Tablet) 500 mg FT DAILY [facility] Last Admin: 04/17/21 09:00 Dose: 500 mg Documented by: Benzonatate (Benzonatate 100 Mg Cap) 200 mg PO TID PRN PRN Reason: COUGH Last Admin: 04/08/21 18:35 Dose: 200 mg Documented by: Cholecalciferol (Vitamin D 1000 Unit Tab) 1,000 unit PO DAILY [facility] Last Admin: 04/17/21 08:59 Dose: 1,000 unit Documented by: Dextrose (D50w 25 Gm/50 Ml Syringe) 12.5 gm IV PRN PRN; Protocol PRN Reason: HYPOGLYCEMIA Famotidine (Famotidine 20 Mg/2 Ml Vial) 20 mg IV DAILY [facility] Last Admin: 04/17/21 08:59 Dose: 20 mg Documented by: Glucagon (Glucagon 1 Mg/Vial) 1 mg IM 1X PRN; Protocol PRN Reason: HYPOGLYCEMIA Haloperidol Lactate (Haloperidol Lact 5 Mg/Ml Inj) 2 mg IV Q4H PRN PRN Reason: AGITATION Last Admin: 04/16/21 23:11 Dose: 2 mg Documented by: Pharmacy Consult (Pharmacy Consult) 1 mls @ 1 mls/hr XX DAILYPRN PRN; Protocol PRN Reason: Vancomycin dose by pharmacy Cisatracurium Besylate 40 mg/ (Sodium Chloride) 100 mls @ 0 mls/hr IV PRN PRN; Protocol PRN Reason: NEUROMUSCULAR BLOCKAGE Last Admin: 04/10/21 20:19 Dose: 100 mls Documented by: Norepinephrine Bitartrate 4 mg (/ Dextrose) 254 mls @ 0 mls/hr IV PRN PRN; Protocol PRN Reason: Hemodynamic Parameters Last Admin: 04/10/21 10:09 Dose: 254 mls Documented by: Sodium Chloride (Sodium Chloride 0.45%) 1,000 mls @ 75 mls/hr IV .[id number] [facility] Last Admin: 04/17/21 18:20 Dose: 1,000 mls Documented by: Insulin Glargine (Insulin Glargine 100 Units/Ml) 60 units SQ DAILY AT SUPPER [facility] Last Admin: 04/17/21 17:38 Dose: 60 units Documented by: Insulin Human Regular (Insulin -Regular Human 50 Unit/0.5 Ml Ml) 0 unit SQ Q6HR [facility]; Protocol Last Admin: 04/17/21 17:39 Dose: 4 unit Documented by: Lorazepam (Lorazepam 2 Mg/Ml Vial) 2 mg IV Q2HP PRN PRN Reason: SEDATION Last Admin: 04/17/21 03:21 Dose: 2 mg Documented by: Methylprednisolone Sodium Succinate (Methylprednisolone 40 Mg Inj) 40 mg IV Q12HR [facility] Last Admin: 04/17/21 20:11 Dose: 40 mg Documented by: Midazolam HCl (Midazolam Hcl 2 Mg/2 Ml Inj) 2 mg IV Q4HP PRN PRN Reason: Anxiety Last Admin: 04/11/21 08:24 Dose: 2 mg Documented by: Nutritional Formula (Vital Hp 1,000 Ml Bot) 0 ml RTH CONT [facility] Last Admin: 04/17/21 05:00 Dose: 1,000 ml Documented by: Ondansetron HCl (Ondansetron 4 Mg/2 Ml Vial) 4 mg IV Q6H PRN PRN Reason: NAUSEA / VOMITING Sodium Chloride (Flush Normal Saline 10 Ml) 10 ml IV BID [facility] Last Admin: 04/17/21 20:11 Dose: 10 ml Documented by: Assessment/ Plan: Nephrology Progress Note Limited IH/ROS due to critical illness/ sedation No acute events overnight Vitals, medications blood work and imaging reviewed in the chart General: In no apparent distress, Unresponsive HEENT: Atraumatic Neck: Supple Respiratory: BL rales Cardiovascular: Regular rate/rhythm, Edema Gastrointestinal: Soft and benign, Non-distended Musculoskeletal: No clubbing, No contractures Integumentary: No rashes, No cyanosis, Other (BL LE Lichenification) Greater than 30min patient care. Blood work reviewed in the chart. Imagings Data: EXAM DESCRIPTION: RADChest Single View04/13/2021 6:54 am CLINICAL HISTORY: Shortness of breath COMPARISON: April 12, 2020 FINDINGS: Endotracheal tube has its tip just above the evie. Enteric tube within the stomach. No significant change in bilateral pulmonary opacities. Heart remains enlarged. Right chest tube in place without visualization of a pneumothorax IMPRESSION: Endotracheal tube has its tip just above the evie. It should be retracted approximately centimeters. No significant change in the diffuse bilateral pulmonary opacities. Conclusions/Impression: EMIGDIO may be due to hypovolemia Uremia likely due to steroids -No NSAIDs -Continue IVF with 1/2NS Hypocalcemia -Continue Vitamin D3 HyperPO4 Septic Shock/ Hypotension -Continue IVF -Norepi as needed DM II with hyperglycemia & CKD -Continue Lantus -Aggressive RISS Severe malnutrition -Consider tube feeds Anemia in chronic illness -Monitor H&H Acute hypoxic respiratory failure COVID-19 PNA -Ventilatory support as ordered -Continue Solumedrol -Continue Baricitinib
[2021-04-18] MEDS: HALOPERIDOL LACT 5 MG/ML INJ IV PRN (00:07)
[2021-04-18] MEDS: INSULIN -REGULAR HUMAN 50 UNIT/0.5 ML ML SQ SCH ×4 (00:13→16:52)
[2021-04-18] MEDS: LORazepam 2 MG/ML VIAL IV PRN ×5 (02:48→19:48)
[2021-04-18] MEDS: NACHLORIDE 0.45% 1,000 ML IV SCH ×3 (03:00→17:46)
[2021-04-18 05:12] LABS: Absolute Lymphocytes (CBC) 0.3 K/uL (0.7-4.9); Basophils % 0.3 % (0-1.3); Hematocrit 34.6 % (36.0-45.0); Lymphocytes % 1.2 % (15.3-44.8); MPV 10.3 fL (7.6-11.3); RBC Red Blood Cell Count 3.91 M/uL (3.86-4.86)
[2021-04-18 05:40] LABS: C-Reactive Protein 14.3 mg/L (<3.00); Ferritin 875.3 ng/mL (8-388); Magnesium 2.3 mg/dL (1.8-2.4); Phosphorus 3.1 mg/dL (2.5-4.9); Potassium 5.1 mmol/L (3.5-5.1)
[2021-04-18 05:48] LABS: Arterial Blood Carboxyhemoglob 1.6 % (0-1.5); Blood Gas Oxyhemoglobin 88.7 % (94-97)
--- NOTE | 2021-04-18 08:36 | RAD REPORT ---
EXAM DESCRIPTION: RAD - Chest Single View - 04/18/2021 5:55 am CLINICAL HISTORY: resp failure Chest pain. COMPARISON: Chest Single View dated 04/17/2021; Chest Single View dated 04/17/2021; Chest Single View dated 04/16/2021; Chest Single View dated 04/15/2021 FINDINGS: Portable technique limits examination quality. Extensive bilateral pulmonary opacities are again seen, mildly progressive since comparative study. E T tube tip is appropriately at the level of the superior aortic arch. Enteric tube descends into the upper abdomen.The heart is mildly prominent size. IMPRESSION: Mild worsening in lung aeration is seen since comparative study.
[2021-04-18] MEDS: FAMOTIDINE 20 MG/2 ML VIAL IV SCH (09:07)
[2021-04-18] MEDS: VITAMIN D 1000 UNIT TAB PO SCH (09:07)
[2021-04-18] MEDS: ASCORBIC ACID 500 MG TABLET FT SCH (09:07)
[2021-04-18] MEDS: BARICITINIB 2 MG TABLET PO SCH (09:07)
[2021-04-18] MEDS: APIXABAN 5 MG TABLET PO SCH ×2 (09:07→19:48)
[2021-04-18] MEDS: METHYLPREDNISOLONE 40 MG INJ IV SCH ×2 (09:07→19:48)
--- NOTE | 2021-04-18 13:28 | P.PN ---
Subjective Date of Service: 04/18/21 Chief Complaint: resp failure Condition stable intermittently responsive Review of Systems is unable to be obtained Physical Examination - Vital Signs Temperature: 97.0 F Blood Pressure: 152/92 Pulse: 95 Respirations: 22 Pulse Ox (%): 90 - Physical Exam General: Unresponsive Assessment & Plan - Problems (Diagnosis) (1) Pneumonia due to COVID-19 virus Current Visit: Yes Status: Acute Plan: Respiratory failure chest x-ray looks worse currently on SIMV 45% oxygen renal function is improving significant hypoxemia white count elevated since some sputum cultures blood cultures of high risk for opportunistic bacterial and fungal infection add Diflucan resume cefepime
[2021-04-18 13:50] LABS: Urine Appearance CLOUDY (Clear); Urine Bilirubin NEGATIVE (Negative); Urine Blood 3+ (Negative); Urine Color YELLOW (Yellow); Urine Glucose NEGATIVE (Negative); Urine Protein 1+ (Negative); Urine Specific Gravity 1.015 (1.005-1.030); Urine pH 5.5 (5.0-7.0)
[2021-04-18 14:07] LABS: Urine Microscopic Reflex ORDER UMIC
[2021-04-18 14:08] LABS: Urine Amorphous Sediment 1+ /HPF (NONE SEEN); Urine Bacteria <20 /HPF (<20); Urine Mucus LIGHT /HPF (NONE SEEN); Urine RBC >50 /HPF (NONE SEEN); Urine Yeast MANY (NONE SEEN)
[2021-04-18] MEDS: CEFEPIME/SWI 1gm 10 ML IV SCH (15:02)
[2021-04-18] MEDS: MIDAZOLAM HCL 2 MG/2 ML INJ IV PRN (15:03)
[2021-04-18] MEDS: INSULIN GLARGINE 100 UNITS/ML SQ SCH (16:53)
--- NOTE | 2021-04-18 16:56 | PN ---
Subjective: Patient is still on mechanical ventilation. She had to be sedated with Ativan because s he becomes combative with the machine. Objective: Vital Signs: Blood pressure 140/79, pulse 105, temperature 97.4, respiratory rate ranges from 20 to 24. Heart: Tachycardic. Regular rate. Chest: Bilateral crackles. Abdomen: Soft, nontender. Bowel sounds are active. Extremities: Chronic lymphedema. No change. Cellulitis resolved. Laboratory Data: White cell count 22.7, hemoglobin 11.2, hematocrit 34.6, platelets 154. Blood gase s, ABGs, pH 7.47, pCO2 of 34.8, pO2 of 58.8, and saturation 91%, this is on inspired oxygen of 45%. Chemistry, BUN 91, creatinine 1.31. GFR 39. Blood sugar fingersticks noted in the low 200s and uppe r 100. C-reactive protein down to 14.3. Assessment/plan: 1.COVID pneumonia with acute respiratory failure requiring mechanical ventilation. There is clinica lly slight improvement in her condition. Her chest x-ray today showed mild worsening in aeration in a comparative study. However, clinically the patient seems to be stable. We will continue current t reatment and support. We will check her labs in the morning and chest x-ray in the morning. Look or ders for details. 2.Type 2 diabetes, better controlled. Continue current treatment. Look orders for details. MFS/MODL Voice ID: [id number] Report ID: [id number]
[2021-04-18] MEDS ORDERED: CEFEPIME 1 GM/VIAL IV SCH (21:00)
--- NOTE | 2021-04-18 21:49 | P.PN ---
Date of Service: 04/18/21 Vital Signs Temp Pulse Resp BP Pulse Ox 97.9 F 96 H 25 H 123/80 92 04/18/21 20:00 04/18/21 20:00 04/18/21 20:00 04/18/21 20:00 04/18/21 20:00 Medications Acetaminophen (Acetaminophen 500 Mg Tab) 500 mg PO Q6H PRN PRN Reason: TEMP > 100' F Last Admin: 04/05/21 07:17 Dose: 500 mg Documented by: Apixaban (Apixaban 5 Mg Tablet) 5 mg PO BID [facility] Last Admin: 04/18/21 19:48 Dose: 5 mg Documented by: Ascorbic Acid (Ascorbic Acid 500 Mg Tablet) 500 mg FT DAILY [facility] Last Admin: 04/18/21 09:07 Dose: 500 mg Documented by: Benzonatate (Benzonatate 100 Mg Cap) 200 mg PO TID PRN PRN Reason: COUGH Last Admin: 04/08/21 18:35 Dose: 200 mg Documented by: Cholecalciferol (Vitamin D 1000 Unit Tab) 1,000 unit PO DAILY [facility] Last Admin: 04/18/21 09:07 Dose: 1,000 unit Documented by: Dextrose (D50w 25 Gm/50 Ml Syringe) 12.5 gm IV PRN PRN; Protocol PRN Reason: HYPOGLYCEMIA Famotidine (Famotidine 20 Mg/2 Ml Vial) 20 mg IV DAILY [facility] Last Admin: 04/18/21 09:07 Dose: 20 mg Documented by: Fluconazole (Fluconazole 100 Mg Tab) 400 mg PO DAILY [facility]; Protocol Glucagon (Glucagon 1 Mg/Vial) 1 mg IM 1X PRN; Protocol PRN Reason: HYPOGLYCEMIA Haloperidol Lactate (Haloperidol Lact 5 Mg/Ml Inj) 2 mg IV Q4H PRN PRN Reason: AGITATION Last Admin: 04/18/21 00:07 Dose: 2 mg Documented by: Pharmacy Consult (Pharmacy Consult) 1 mls @ 1 mls/hr XX DAILYPRN PRN; Protocol PRN Reason: Vancomycin dose by pharmacy Cisatracurium Besylate 40 mg/ (Sodium Chloride) 100 mls @ 0 mls/hr IV PRN PRN; Protocol PRN Reason: NEUROMUSCULAR BLOCKAGE Last Admin: 04/10/21 20:19 Dose: 100 mls Documented by: Norepinephrine Bitartrate 4 mg (/ Dextrose) 254 mls @ 0 mls/hr IV PRN PRN; Protocol PRN Reason: Hemodynamic Parameters Last Admin: 04/10/21 10:09 Dose: 254 mls Documented by: Sodium Chloride (Sodium Chloride 0.45%) 1,000 mls @ 75 mls/hr IV .[id number] [facility] Last Admin: 04/18/21 17:46 Dose: 1,000 mls Documented by: Cefepime HCl (Maxipime 1 Gm/10 Ml Ivp) 10 mls @ 200 mls/hr IV Q12H [facility] Last Admin: 04/18/21 15:02 Dose: 10 mls Documented by: Insulin Glargine (Insulin Glargine 100 Units/Ml) 60 units SQ DAILY AT SUPPER [facility] Last Admin: 04/18/21 16:53 Dose: 60 units Documented by: Insulin Human Regular (Insulin -Regular Human 50 Unit/0.5 Ml Ml) 0 unit SQ Q6HR [facility]; Protocol Last Admin: 04/18/21 16:52 Dose: 6 unit Documented by: Lorazepam (Lorazepam 2 Mg/Ml Vial) 2 mg IV Q2HP PRN PRN Reason: SEDATION Last Admin: 04/18/21 19:48 Dose: 2 mg Documented by: Methylprednisolone Sodium Succinate (Methylprednisolone 40 Mg Inj) 40 mg IV Q12HR [facility] Last Admin: 04/18/21 19:48 Dose: 40 mg Documented by: Midazolam HCl (Midazolam Hcl 2 Mg/2 Ml Inj) 2 mg IV Q4HP PRN PRN Reason: Anxiety Last Admin: 04/18/21 15:03 Dose: 2 mg Documented by: Nutritional Formula (Vital Hp 1,000 Ml Bot) 0 ml RTH CONT [facility] Last Admin: 04/17/21 05:00 Dose: 1,000 ml Documented by: Ondansetron HCl (Ondansetron 4 Mg/2 Ml Vial) 4 mg IV Q6H PRN PRN Reason: NAUSEA / VOMITING Sodium Chloride (Flush Normal Saline 10 Ml) 10 ml IV BID [facility] Last Admin: 04/18/21 19:48 Dose: 10 ml Documented by: Assessment/ Plan: Nephrology Progress Note Limited IH/ROS due to critical illness/ sedation No acute events overnight Vitals, medications blood work and imaging reviewed in the chart General: In no apparent distress, Unresponsive HEENT: Atraumatic Neck: Supple Respiratory: BL rales Cardiovascular: Regular rate/rhythm, Edema Gastrointestinal: Soft and benign, Non-distended Musculoskeletal: No clubbing, No contractures Integumentary: No rashes, No cyanosis, Other (BL LE Lichenification) Greater than 30min patient care. Blood work reviewed in the chart. Imagings Data: EXAM DESCRIPTION: Danilo Single View04/13/2021 6:54 am CLINICAL HISTORY: Shortness of breath COMPARISON: April 12, 2020 FINDINGS: Endotracheal tube has its tip just above the evie. Enteric tube within the stomach. No significant change in bilateral pulmonary opacities. Heart remains enlarged. Right chest tube in place without visualization of a pneumothorax IMPRESSION: Endotracheal tube has its tip just above the evie. It should be retracted approximately centimeters. No significant change in the diffuse bilateral pulmonary opacities. Conclusions/Impression: EMIGDIO may be due to hypovolemia Uremia likely due to steroids -No NSAIDs -Continue IVF with 1/2NS Hypocalcemia -Continue Vitamin D3 HyperPO4 Septic Shock/ Hypotension -Continue IVF -Norepi as needed DM II with hyperglycemia & CKD -Continue Lantus -Aggressive RISS Severe malnutrition -Maintain nutrition Anemia in chronic illness -Monitor H&H Acute hypoxic respiratory failure COVID-19 PNA -Ventilatory support as ordered -Continue Solumedrol -Continue Baricitinib
[2021-04-19] MEDS: INSULIN -REGULAR HUMAN 50 UNIT/0.5 ML ML SQ SCH ×5 (00:33→23:59)
[2021-04-19] MEDS: CEFEPIME/SWI 1gm 10 ML IV SCH ×2 (00:57→14:29)
[2021-04-19] MEDS: LORazepam 2 MG/ML VIAL IV PRN ×4 (00:57→19:45)
[2021-04-19] MEDS: MIDAZOLAM HCL 2 MG/2 ML INJ IV PRN ×2 (03:05→11:54)
[2021-04-19] MEDS: NACHLORIDE 0.45% 1,000 ML IV SCH (05:23)
[2021-04-19 06:31] LABS: Magnesium 2.2 mg/dL (1.8-2.4)
[2021-04-19 06:38] LABS: C-Reactive Protein 15.6 mg/L (<3.00); Phosphorus 3.4 mg/dL (2.5-4.9); Potassium 5.5 mmol/L (3.5-5.1)
--- NOTE | 2021-04-19 07:34 | RAD REPORT ---
EXAM DESCRIPTION: RAD - Chest Single View - 04/19/2021 5:49 am CLINICAL HISTORY: resp failure COMPARISON: Chest Single View dated 04/18/2021; Chest Single View dated 04/17/2021; Chest Single View dated 04/17/2021; Chest Single View dated 04/16/2021 FINDINGS: The endotracheal tube is in satisfactory position near the aortic arch. Enteric tube below the diaphragm. Severe widespread bilateral airspace disease, right greater than left but similar to 04/18/2021. Cardiomegaly. IMPRESSION: Similar aeration of the lungs compared with 04/18/2021 with widespread airspace disease, eccentric to the right side.
[2021-04-19] MEDS: BARICITINIB 2 MG TABLET PO SCH (09:00)
[2021-04-19 09:11] LABS: Absolute Lymphocytes (CBC) 0.3 K/uL (0.7-4.9); Basophils % 0.4 % (0-1.3); Hematocrit 32.7 % (36.0-45.0); Lymphocytes % 1.2 % (15.3-44.8); MPV 10.5 fL (7.6-11.3); RBC Red Blood Cell Count 3.66 M/uL (3.86-4.86)
[2021-04-19] MEDS: FAMOTIDINE 20 MG/2 ML VIAL IV SCH (09:35)
[2021-04-19] MEDS: METHYLPREDNISOLONE 40 MG INJ IV SCH ×2 (09:35→20:04)
[2021-04-19] MEDS: ASCORBIC ACID 500 MG TABLET FT SCH (09:36)
[2021-04-19] MEDS: VITAMIN D 1000 UNIT TAB PO SCH (09:36)
[2021-04-19] MEDS: FLUCONAZOLE 100 MG TAB PO SCH (09:36)
[2021-04-19] MEDS: APIXABAN 5 MG TABLET PO SCH ×2 (09:36→20:03)
[2021-04-19 09:49] LABS: Blood Morphology Comment NOT SEEN (NOT SEEN); Platelet Estimate ADEQ
--- NOTE | 2021-04-19 12:07 | RAD REPORT ---
EXAM DESCRIPTION: US - UPPER EXTREMITY VENOUS UNILATE - 04/19/2021 11:55 am CLINICAL HISTORY: RUE swelling COMPARISON: No comparisons FINDINGS: Normal compressibility and waveforms of the right internal jugular vein, subclavian vein, axillary vein, cephalic vein, brachial vein, basilic vein. IMPRESSION: No right upper extremity venous thrombosis identified.
[2021-04-19] MEDS ORDERED: Pharmacy Consult 1 EA XX PRN (15:24)
--- NOTE | 2021-04-19 15:24 | P.PN ---
Subjective Date of Service: 04/19/21 Chief Complaint: resp failure Patient is not doing well unresponsive this x-ray looks worse Review of Systems is unable to be obtained Physical Examination - Vital Signs Temperature: 97.0 F Blood Pressure: 152/92 Pulse: 95 Respirations: 22 Pulse Ox (%): 90 - Physical Exam General: Unresponsive Assessment & Plan - Problems (Diagnosis) (1) Pneumonia due to COVID-19 virus Current Visit: Yes Status: Acute Plan: Respiratory failure chest x-ray looks worse oxygen requirements have remained stable she is not waking up white count elevated renal function improving blood cultures so far negative add vancomycin patient is on maximal therapy prognosis very poor
[2021-04-19] MEDS ORDERED: VANCOMYCIN 2.5 GM in NA CHLORIDE 0.9% 500 ML IVPB ONE (17:00)
[2021-04-19] MEDS: INSULIN GLARGINE 100 UNITS/ML SQ SCH (17:59)
--- NOTE | 2021-04-19 20:29 | P.PN ---
Date of Service: 04/19/21 Vital Signs Temp Pulse Resp BP Pulse Ox 98.7 F 94 H 29 H 148/68 H 89 L 04/19/21 16:00 04/19/21 18:00 04/19/21 18:00 04/19/21 18:00 04/19/21 18:00 Medications Acetaminophen (Acetaminophen 500 Mg Tab) 500 mg PO Q6H PRN PRN Reason: TEMP > 100' F Last Admin: 04/05/21 07:17 Dose: 500 mg Documented by: Apixaban (Apixaban 5 Mg Tablet) 5 mg PO BID [facility] Last Admin: 04/19/21 20:03 Dose: 5 mg Documented by: Ascorbic Acid (Ascorbic Acid 500 Mg Tablet) 500 mg FT DAILY [facility] Last Admin: 04/19/21 09:36 Dose: 500 mg Documented by: Benzonatate (Benzonatate 100 Mg Cap) 200 mg PO TID PRN PRN Reason: COUGH Last Admin: 04/08/21 18:35 Dose: 200 mg Documented by: Cholecalciferol (Vitamin D 1000 Unit Tab) 1,000 unit PO DAILY [facility] Last Admin: 04/19/21 09:36 Dose: 1,000 unit Documented by: Dextrose (D50w 25 Gm/50 Ml Syringe) 12.5 gm IV PRN PRN; Protocol PRN Reason: HYPOGLYCEMIA Famotidine (Famotidine 20 Mg/2 Ml Vial) 20 mg IV DAILY [facility] Last Admin: 04/19/21 09:35 Dose: 20 mg Documented by: Fluconazole (Fluconazole 100 Mg Tab) 400 mg PO DAILY [facility]; Protocol Last Admin: 04/19/21 09:36 Dose: 400 mg Documented by: Glucagon (Glucagon 1 Mg/Vial) 1 mg IM 1X PRN; Protocol PRN Reason: HYPOGLYCEMIA Haloperidol Lactate (Haloperidol Lact 5 Mg/Ml Inj) 2 mg IV Q4H PRN PRN Reason: AGITATION Last Admin: 04/18/21 00:07 Dose: 2 mg Documented by: Pharmacy Consult (Pharmacy Consult) 1 mls @ 1 mls/hr XX DAILYPRN PRN; Protocol PRN Reason: Vancomycin dose by pharmacy Cisatracurium Besylate 40 mg/ (Sodium Chloride) 100 mls @ 0 mls/hr IV PRN PRN; Protocol PRN Reason: NEUROMUSCULAR BLOCKAGE Last Admin: 04/10/21 20:19 Dose: 100 mls Documented by: Norepinephrine Bitartrate 4 mg (/ Dextrose) 254 mls @ 0 mls/hr IV PRN PRN; Protocol PRN Reason: Hemodynamic Parameters Last Admin: 04/10/21 10:09 Dose: 254 mls Documented by: Cefepime HCl (Maxipime 1 Gm/10 Ml Ivp) 10 mls @ 200 mls/hr IV Q12H [facility] Last Admin: 04/19/21 14:29 Dose: 10 mls Documented by: Pharmacy Consult (Pharmacy Consult) 1 mls @ 1 mls/hr XX DAILYPRN PRN; Protocol PRN Reason: Vancomycin dose by pharmacy Vancomycin HCl 1.75 gm/ Sodium (Chloride) 500 mls @ 250 mls/hr IVPB Q36H [facility] Insulin Glargine (Insulin Glargine 100 Units/Ml) 60 units SQ DAILY AT SUPPER [facility] Last Admin: 04/19/21 17:59 Dose: 60 units Documented by: Insulin Human Regular (Insulin -Regular Human 50 Unit/0.5 Ml Ml) 0 unit SQ Q6HR [facility]; Protocol Last Admin: 04/19/21 17:50 Dose: 4 unit Documented by: Lorazepam (Lorazepam 2 Mg/Ml Vial) 2 mg IV Q2HP PRN PRN Reason: SEDATION Last Admin: 04/19/21 19:45 Dose: 2 mg Documented by: Methylprednisolone Sodium Succinate (Methylprednisolone 40 Mg Inj) 40 mg IV Q12HR [facility] Last Admin: 04/19/21 20:04 Dose: 40 mg Documented by: Midazolam HCl (Midazolam Hcl 2 Mg/2 Ml Inj) 2 mg IV Q4HP PRN PRN Reason: Anxiety Last Admin: 04/19/21 11:54 Dose: 2 mg Documented by: Nutritional Formula (Vital Hp 1,000 Ml Bot) 0 ml RTH CONT [facility] Last Admin: 04/17/21 05:00 Dose: 1,000 ml Documented by: Ondansetron HCl (Ondansetron 4 Mg/2 Ml Vial) 4 mg IV Q6H PRN PRN Reason: NAUSEA / VOMITING Sodium Chloride (Flush Normal Saline 10 Ml) 10 ml IV BID [facility] Last Admin: 04/19/21 20:04 Dose: 10 ml Documented by: Assessment/ Plan: Nephrology Progress Note Limited IH/ROS due to critical illness/ sedation Nurse reports worsening upper extremity edema. No acute events overnight Vitals, medications blood work and imaging reviewed in the chart General: In no apparent distress, Unresponsive HEENT: Atraumatic Neck: Supple Respiratory: BL rales Cardiovascular: Regular rate/rhythm, Edema Gastrointestinal: Soft and benign, Non-distended Musculoskeletal: No clubbing, No contractures Integumentary: No rashes, No cyanosis, Other (BL LE Lichenification) Greater than 30min patient care. Blood work reviewed in the chart. Imagings Data: EXAM DESCRIPTION: Danilo Single View04/13/2021 6:54 am CLINICAL HISTORY: Shortness of breath COMPARISON: April 12, 2020 FINDINGS: Endotracheal tube has its tip just above the evie. Enteric tube within the stomach. No significant change in bilateral pulmonary opacities. Heart remains enlarged. Right chest tube in place without visualization of a pneumothorax IMPRESSION: Endotracheal tube has its tip just above the evie. It should be retracted approximately centimeters. No significant change in the diffuse bilateral pulmonary opacities. Conclusions/Impression: EMIGDIO may be due to hypovolemia Uremia likely due to steroids -No NSAIDs -Discontinue IVF with 1/2NS Hypocalcemia -Continue Vitamin D3 HyperPO4 Septic Shock/ Hypotension -Discontinue IVF -Norepi as needed Hypervolemia -Lasix prn DM II with hyperglycemia & CKD -Continue Lantus -Aggressive RISS Severe malnutrition -Maintain nutrition Anemia in chronic illness -Monitor H&H Acute hypoxic respiratory failure COVID-19 PNA -Ventilatory support as ordered -Continue Solumedrol -Continue Baricitinib
--- NOTE | 2021-04-19 21:31 | PN ---
Subjective: The patient is still on mechanical ventilation. She is not waking up or responding to s timuli other than just withdrawing if you tap on her forehead, but does not open her eyes. Not responding to any commands. Objective: Vital signs: Her blood pressure 103/57, pulse 91, temperature 97. The patient is in atr ial fibrillation. Heart: Regular rate and rhythm. Chest: Bilateral crackles. Abdomen: Soft, benign. Neurologic: As mentioned above. Extremities: Chronic lymphedema, minimal redness and the lymphedema is chronic for her. There is no indication of infection. Her blood sugar fingersticks in the lower 200s to 150s, much better controlled. White cell count 23. 9, hemoglobin 10.6, hematocrit 32.7, and platelets are 139. Assessment/plan: 1.COVID pneumonia. It is not doing well. I have talked to the daughter. She wants to try for now acute supportive care. 2.The patient is comatose, not responsive because of COVID pneumonia. We will continue supportive c are and current management. 3.Type 2 diabetes. Better controlled. We will continue her on current dosing of Lantus and sliding scale of regular insulin. The patient's potassium is 5.5, her BUN 86, creatinine 1.18, and GFR 44. We will put the patient on electrolyte protocol. Look orders for details. MFS/MODL Voice ID: [id number] Report ID: [id number]
[2021-04-20] MEDS: CEFEPIME/SWI 1gm 10 ML IV SCH ×2 (01:36→13:48)
[2021-04-20] MEDS: MIDAZOLAM HCL 2 MG/2 ML INJ IV PRN ×2 (01:42→22:15)
[2021-04-20] MEDS: LORazepam 2 MG/ML VIAL IV PRN ×3 (02:20→20:22)
[2021-04-20 05:20] LABS: Absolute Lymphocytes (CBC) 0.2 K/uL (0.7-4.9); Basophils % 0.1 % (0-1.3); Hematocrit 33.9 % (36.0-45.0); Lymphocytes % 0.9 % (15.3-44.8); MPV 11.4 fL (7.6-11.3); RBC Red Blood Cell Count 3.79 M/uL (3.86-4.86)
[2021-04-20 06:10] LABS: Potassium 5.9 mmol/L (3.5-5.1)
[2021-04-20] MEDS: INSULIN -REGULAR HUMAN 50 UNIT/0.5 ML ML SQ SCH ×3 (06:41→18:40)
[2021-04-20] MEDS ORDERED: SOD POLYSTYREN SUL 15 GM/60 ML UCUP PO ONE (07:00)
[2021-04-20] MEDS: METHYLPREDNISOLONE 40 MG INJ IV SCH ×2 (10:18→20:22)
[2021-04-20] MEDS: FAMOTIDINE 20 MG/2 ML VIAL IV SCH (10:18)
[2021-04-20] MEDS: APIXABAN 5 MG TABLET PO SCH ×2 (10:19→20:21)
[2021-04-20] MEDS: BARICITINIB 2 MG TABLET PO SCH (10:19)
[2021-04-20] MEDS: VITAMIN D 1000 UNIT TAB PO SCH (10:19)
[2021-04-20] MEDS: ASCORBIC ACID 500 MG TABLET FT SCH (10:19)
[2021-04-20] MEDS: FLUCONAZOLE 100 MG TAB PO SCH (10:19)
--- NOTE | 2021-04-20 11:04 | RAD REPORT ---
EXAM DESCRIPTION: RAD - Chest Single View - 04/20/2021 7:09 am CLINICAL HISTORY: resp failure Chest pain. COMPARISON: Chest Single View dated 04/19/2021; Chest Single View dated 04/18/2021; Chest Single View dated 04/17/2021; Chest Single View dated 04/17/2021; UPPER EXTREMITY VENOUS UNILATE dated 04/19/2021 FINDINGS: Portable technique limits examination quality. Small right-sided pneumothorax is again noted estimated at 10-15% of lung volume. An inferiorly locat ed right-sided chest tube appears to be in place with its tip somewhat near the midline. Endotracheal tube tip is at the margin of the superior aortic arch, appropriate location. Enteric tube descends i nto the stomach.Extensive bilateral pulmonary opacities show no interval change. The heart is moderat cielo enlarged in size. IMPRESSION: Small right-sided pneumothorax is seen with chest tube in place. When accounting for dif ferences in radiographic technique, this is probably unchanged since the most recent chest radiograph . Extensive opacification of both lungs shows no significant interval change.
--- NOTE | 2021-04-20 12:09 | P.PN ---
Subjective Date of Service: 04/20/21 Chief Complaint: resp failure Required kayexalate for hyprekalemia - f/u labs pending Physical Examination - Vital Signs Temperature: 97.2 F Blood Pressure: 106/62 Pulse: 109 Respirations: 27 Pulse Ox (%): 93 - Physical Exam Other Physical/Emotional Findings: Intubated; sedated. Irreg irreg. coarse B/S. Distended soft. 1+ pitting at thighs; 2+ edema upper extremities. [place] clear yellow urine Assessment & Plan - Problems (Diagnosis) (1) Hyperkalemia Current Visit: Yes Status: Acute Plan: Hyperkalemia - kayexalate given ; f/u bmp at 12pm ;lasix 60mg iv x1 if k >5.5 EMIGDIO may be due to hypovolemia Uremia likely due to steroids -No NSAIDs -Discontinue IVF with 1/2NS Hypocalcemia -Continue Vitamin D3 HyperPO4 Septic Shock/ Hypotension -Discontinue IVF -Norepi as needed Hypervolemia -Lasix prn DM II with hyperglycemia & CKD -Continue Lantus -Aggressive RISS Severe malnutrition -Maintain nutrition Anemia in chronic illness -Monitor H&H Acute hypoxic respiratory failure COVID-19 PNA -Ventilatory support as ordered -Continue Solumedrol -Continue Baricitinib Poor prognosis
[2021-04-20] MEDS ORDERED: FUROSEMIDE 40 MG/4 ML VIAL IV ONE (14:50)
[2021-04-20] MEDS ORDERED: GLUCAGON 1 MG/VIAL IM PRN (14:51)
[2021-04-20] MEDS ORDERED: INSULIN -REGULAR HUMAN 50 UNIT/0.5 ML ML IV ONE (14:56)
[2021-04-20] MEDS ORDERED: D50W 25 GM/50 ML SYRINGE IV ONE (14:59)
[2021-04-20] MEDS: VITAL HP 1,000 ML BOT RTH SCH (15:28)
[2021-04-20] MEDS: INSULIN GLARGINE 100 UNITS/ML SQ SCH (18:39)
[2021-04-20 20:52] LABS: Potassium 5.5 mmol/L (3.5-5.1)
--- NOTE | 2021-04-20 20:54 | PN ---
Subjective: The patient is still on mechanical ventilation and she is not responding or communicatin g. Objective: Vital signs: Blood pressure 106/62, pulse 109, temperature 97.2. The patient is in atri al fibrillation. Blood sugar fingersticks noted less than 200, more than 100. Heart: Tachycardic. Regular rate. Respiratory crackles. Abdomen: Soft, benign. Neurologic examination: The patient is unresponsive except for painful stimuli withdrawal. White cell count 21.5, hemoglobin 11.8, hematocrit 33.9, platelets 131. Calcium 5.8, BUN 82, creatin ine 1.05. Blood sugar fingersticks . Assessment/plan: 1.COVID pneumonia. The patient is not doing well. She is still on mechanical ventilation and unres ponsive. We will continue supportive care. 2.Acute renal failure, on chronic. 3.Hyperkalemia. We will give the patient Kayexalate through feeding tube. We will monitor her pota ssium. 4.Type 2 diabetes, controlled. Look orders for details. MFS/MODL Voice ID: [id number] Report ID: [id number]
[2021-04-21] MEDS: CEFEPIME/SWI 1gm 10 ML IV SCH ×2 (02:13→14:25)
[2021-04-21] MEDS: INSULIN -REGULAR HUMAN 50 UNIT/0.5 ML ML SQ SCH ×5 (02:13→23:57)
[2021-04-21] MEDS: LORazepam 2 MG/ML VIAL IV PRN ×4 (02:15→23:52)
[2021-04-21] MEDS ORDERED: VANCOMYCIN 1.75 GM in NA CHLORIDE 0.9% 500 ML IVPB SCH (05:00)
[2021-04-21 05:36] LABS: Absolute Lymphocytes (CBC) 0.2 K/uL (0.7-4.9); Basophils % 0.1 % (0-1.3); Lymphocytes % 0.9 % (15.3-44.8); MPV 11.3 fL (7.6-11.3); RBC Red Blood Cell Count 3.59 M/uL (3.86-4.86)
[2021-04-21 06:27] LABS: Potassium 5.3 mmol/L (3.5-5.1)
[2021-04-21] MEDS: APIXABAN 5 MG TABLET PO SCH ×2 (07:45→19:57)
[2021-04-21] MEDS: FLUCONAZOLE 100 MG TAB PO SCH (07:45)
[2021-04-21] MEDS: ASCORBIC ACID 500 MG TABLET FT SCH (07:46)
[2021-04-21] MEDS: METHYLPREDNISOLONE 40 MG INJ IV SCH ×2 (07:46→19:57)
[2021-04-21] MEDS: FAMOTIDINE 20 MG/2 ML VIAL IV SCH (07:46)
[2021-04-21] MEDS: VITAMIN D 1000 UNIT TAB PO SCH (07:47)
[2021-04-21] MEDS: BARICITINIB 2 MG TABLET PO SCH (07:49)
[2021-04-21] MEDS ORDERED: FUROSEMIDE 40 MG/4 ML VIAL IV ONE (07:50)
--- NOTE | 2021-04-21 08:40 | RAD REPORT ---
EXAM DESCRIPTION: [place] Single View04/21/2021 6:55 am CLINICAL HISTORY: Respiratory failure COMPARISON: April 20, 2021 FINDINGS: Right chest tube in place. A pneumothorax is not clearly visualized. No change in the diffuse bilateral pulmonary opacities and cardiomegaly. Endotracheal tube has its tip overlying the level of the aortic arch. Feeding tube enters stomach IMPRESSION: Right chest tube in place without visualization of a pneumothorax No significant change in diffuse bilateral pulmonary opacities
--- NOTE | 2021-04-21 10:13 | PN ---
Date of Progress Note: 04/21/2021 Subjective: The patient is seen at bedside. The patient did receive Lasix, insulin, and dextrose ye sterday. Potassium has improved from a peak of 5.9 down to 5.3 today. The patient remains on SIMV w ith 50% FiO2. The patient has urine output of 2 L after Lasix. No other significant changes noted. Objective: Vital Signs: Blood pressure 161/90, pulse 105, afebrile. Input and output; 1656 in and 3715 out, -2 L balance. General: Intubated, sedated. Remainder exam taken from nursing. Laboratory Data: Sodium 141, potassium 5.3, chloride 108, CO2 of 26, BUN 87, creatinine 1.13, glucos e 176, calcium 8.8. CBC; hemoglobin 10.3, hematocrit 32.3. UA from the had noted blood, rbc's, wbc's with yeast. The patient's vancomycin level today is 20.1. Current Medications: Reviewed. Of note, the patient on vancomycin 1.75 g every 36 hours, also on Le vophed, Solu-Medrol 40 mg IV q.12, fluconazole 400 daily, cefepime 1 g every 12, Eliquis 5 b.i.d. Re mainder medications noted. The patient is currently receiving tube feeds. Impression: 1.Hyperkalemia. 2.Acute kidney injury. 3.Hypercalcemia. 4.Hyperphosphatemia. 5.Septic shock and hypotension. 6.Hyperlipidemia. 7.Diabetes mellitus type 2. 8.Malnutrition. 9.Anemia of chronic illness. 10.COVID-19 pneumonia. 11.Acute hypoxemic respiratory failure. 12.Right-sided pneumothorax with chest tube. Plan: Potassium remains elevated. The patient has azotemia. We will administer additional dose of Lasix 40 mg IV for diuresis. Continue to monitor electrolytes. Potassium is elevated. Recommend lo w-potassium feeds. Renally dose all medications. Continue to adjust vancomycin dose based on level. Maintain Almeida catheter. SE/MODL Voice ID: [id number] Report ID: [id number]
[2021-04-21] MEDS ORDERED: MICAFUNGIN SODIUM 100 MG VIAL IV SCH (10:42)
[2021-04-21] MEDS ORDERED: SOD POLYSTYREN SUL 15 GM/60 ML UCUP PO ONE (10:43)
--- NOTE | 2021-04-21 10:55 | P.PN ---
Subjective Date of Service: 04/21/21 Chief Complaint: resp failure unresponsive Patient on a ventilator and ventilator continues to remain unresponsive Review of Systems is unable to be obtained Physical Examination - Vital Signs Temperature: 97.2 F Blood Pressure: 134/92 Pulse: 117 Respirations: 30 Pulse Ox (%): 94 - Physical Exam General: Unresponsive Other Physical/Emotional Findings: Intubated; sedated. Irreg irreg. coarse B/S. Distended soft. 1+ pitting at thighs; 2+ edema upper extremities. Almeida clear yellow urine Assessment & Plan - Problems (Diagnosis) (1) Pneumonia due to COVID-19 virus Current Visit: Yes Status: Acute Plan: Respiratory failure currently on 50% FiO2 chest x-ray shows diffuse bilateral pneumonia (2) Candidiasis Current Visit: Yes Status: Acute Plan: Blood culture positive for yeast changed to IV micafungin DC fluconazole and vancomycin (3) Hyperkalemia Current Visit: Yes Status: Acute Plan: Patient given 1 dose of Kayexalate 30 g
[2021-04-21] MEDS: MICAFUNGIN SODIUM 100 MG in NA CHLORIDE 0.9% 100 ML IV SCH (12:00)
--- NOTE | 2021-04-21 12:49 | PN ---
Subjective: The patient is on mechanical ventilation, unresponsive, ventricular fibrillation. Objective: Vital Signs: Blood pressure 134/92, pulse 117, respiratory rate of 38, temperature 97.2. Heart: Regular rate and rhythm. Chest: Bilateral crackles. Abdomen: Soft, benign. Neurological: The patient is unresponsive. No change from yesterday. Diagnostic Data: Chest x-ray, no significant change in bilateral opacities. Laboratory Data: White cell count 17.1, hemoglobin 10.3, hematocrit 31, platelets 138. Chemistry no mirella; potassium 5.3, BUN 87, creatinine 1.10, GFR of 47. Blood sugar fingersticks between 213, 163. Assessment And Plan: COVID-19 pneumonia with acute respiratory failure, now unresponsiveness. The p atient is clinically not doing well; however, we will keep supportive care at this time pending a tra nsfer for LTAC. The patient's outcome is not expected to be improved; however, the outcome is ____. We will continue current treatment and management. Look orders for details. MFS/MODL Voice ID: [id number] Report ID: [id number]
--- NOTE | 2021-04-21 17:02 | RAD REPORT ---
EXAM DESCRIPTION: CT - Head Brain Wo Cont - 04/21/2021 4:51 pm CLINICAL HISTORY: Alteration of awareness/confusion COMPARISON: None TECHNIQUE: Computed axial tomography of the head was obtained. IV contrast was not requested. All CT scans are performed using dose optimization technique as appropriate and may include automated exposure control or mA/KV adjustment according to patient size. FINDINGS: An intracranial bleed is not seen . The ventricles are normal in caliber. No extra-axial fluid collection is noted. . Fluid within the sinuses/ mastoids is not seen. IMPRESSION: No acute intracranial abnormality is seen. If patient's symptoms persist MRI of the bra in would be recommended.
[2021-04-21] MEDS: MIDAZOLAM HCL 2 MG/2 ML INJ IV PRN (17:10)
[2021-04-21] MEDS: INSULIN GLARGINE 100 UNITS/ML SQ SCH (17:35)
[2021-04-21] MEDS: VITAL HP 1,000 ML BOT RTH SCH (23:13)
[2021-04-22] MEDS: CEFEPIME/SWI 1gm 10 ML IV SCH ×2 (01:22→14:46)
[2021-04-22] MEDS: MIDAZOLAM HCL 2 MG/2 ML INJ IV PRN (04:45)
[2021-04-22 05:09] LABS: Absolute Lymphocytes (CBC) 0.2 K/uL (0.7-4.9); Basophils % 0.1 % (0-1.3); Hematocrit 30.4 % (36.0-45.0); MPV 11.8 fL (7.6-11.3); RBC Red Blood Cell Count 3.42 M/uL (3.86-4.86)
[2021-04-22 05:18] LABS: C-Reactive Protein 7.9 mg/L (<3.00); Ferritin 819.5 ng/mL (8-388); Potassium 4.8 mmol/L (3.5-5.1)
[2021-04-22] MEDS: INSULIN -REGULAR HUMAN 50 UNIT/0.5 ML ML SQ SCH ×3 (05:53→16:48)
--- NOTE | 2021-04-22 07:32 | RAD REPORT ---
EXAM DESCRIPTION: RAD - Chest Single View - 04/22/2021 5:53 am CLINICAL HISTORY: resp failure COMPARISON: April 21, April 20 TECHNIQUE: AP portable chest image was obtained 04/22/2021 5:53 am . FINDINGS: Endotracheal tube tip is mid aortic arch level 3 cm from the evie, well positioned. Chest tube remains in the right base. No change in positioning. Patient probably has a very minimal r ight apical pneumothorax. This is difficult to visualize. Anterior component of the pneumothorax can be occult on portable imaging. Feeding tube extends below the diaphragm, off the field of view Extensive bilateral lung parenchymal disease is present not substantially different from the Heart an d vasculature are normal. No new or enlarging pleural effusion. IMPRESSION: ET tube in good position. Feeding tube extends well below the diaphragm, the tip is off the field of view. Right base chest tube unchanged in positioning. Patient probably has a very minimal right apical pneu mothorax. Anterior component to a pneumothorax can be occult on portable imaging. Extensive bilateral airspace disease similar to prior day imaging.
[2021-04-22] MEDS: APIXABAN 5 MG TABLET PO SCH ×2 (09:20→20:47)
[2021-04-22] MEDS: FAMOTIDINE 20 MG/2 ML VIAL IV SCH (09:20)
[2021-04-22] MEDS: ASCORBIC ACID 500 MG TABLET FT SCH (09:20)
[2021-04-22] MEDS: VITAMIN D 1000 UNIT TAB PO SCH (09:20)
[2021-04-22] MEDS: METHYLPREDNISOLONE 40 MG INJ IV SCH ×2 (09:20→20:47)
[2021-04-22] MEDS: BARICITINIB 2 MG TABLET PO SCH (09:21)
[2021-04-22] MEDS: MICAFUNGIN SODIUM 100 MG in NA CHLORIDE 0.9% 100 ML IV SCH (09:57)
--- NOTE | 2021-04-22 11:58 | PN ---
Date of Progress Note: 04/22/2021 Subjective: The patient is seen in intensive care unit in room 7. This is . The patient is still quite sedated, not able to wake up. She is still on the ventilator in c ritical condition with SIMV at 50% oxygen. Objective: Vital Signs: Blood pressures are 120-140 range. Last blood pressure was 126/87, before that 138/98, pulse is 100 to 120. The patient is in atrial fibrillation. Respirations are around 18 -20. O2 sats are around 94% on 50% oxygen. Heart: Sounds irregularly irregular. Abdomen: Soft. Genitourinary: The patient has about 400 cc of urine in her Almeida bag since this morning shift. Lungs: The patient's lungs are clear with some wheezing scattered bilaterally. Extremities: With edema similar to last week. Laboratory Data: Reviewed. Labs show WBC count 15.2, hemoglobin 9.8, hematocrit 30.4, platelet coun t 139. CRP level of 7.9. Sodium 141, potassium 4.8, chloride 107, bicarb 30, BUN and creatinine are 100 and 1.11. Assessment And Plan: Acute kidney injury/acute tubular necrosis/COVID pneumonia, critical condition requiring vent support, respiratory failure. The patient's blood pressure seems to be stable. Potas sium seems to have improved. Bicarb reasonable. Sodium reasonable. Hemoglobin reasonable at 9.8. WBC count elevated still at 15.2. The patient on antifungal IV medication for the fungal infection. Cellulitis of lower extremities, resolved. On antibiotics as per Pulmonary Critical Care, on vent s upport. Still not waking up, in critical condition. Continue monitoring electrolytes with p.r.n. La six and/or medications to keep potassium controlled. If potassium level today seems to have improved overall and down to 4.8 range, we will go ahead and give another dose of Lasix 40 mg IV now and leisa tor with BMP in the morning. Discussed plan with the patient's nurse as well. /CRISTO Voice ID: [id number] Report ID: [id number]
--- NOTE | 2021-04-22 12:13 | P.PN ---
Subjective Date of Service: 04/22/21 Chief Complaint: resp failure unresponsive No change patient unresponsive Review of Systems is unable to be obtained Physical Examination - Vital Signs Temperature: 97.2 F Blood Pressure: 126/87 Pulse: 108 Respirations: 23 Pulse Ox (%): 94 - Physical Exam General: Unresponsive Other Physical/Emotional Findings: Intubated; sedated. Irreg irreg. coarse B/S. Distended soft. 1+ pitting at thighs; 2+ edema upper extremities. Almeida clear yellow urine Assessment & Plan - Problems (Diagnosis) (1) Pneumonia due to COVID-19 virus Current Visit: Yes Status: Acute Plan: Respiratory failure with and in coma CT scan of the head is negative for any obvious bleeding white count is declining BUN is very elevated on 50% FiO2 chest x-ray shows extensive lung disease (2) Candidiasis Current Visit: Yes Status: Acute Plan: Continue with micafungin (3) Hyperkalemia Current Visit: Yes Status: Resolved Plan: Patient given 1 dose of Kayexalate 30 g
--- NOTE | 2021-04-22 13:31 | PN ---
Subjective: The patient is still unresponsive on mechanical ventilation. Objective: Blood pressure 126/87, pulse 108, temperature 97.2. Rest of her physical examination; no change, still comatose, but she is in atrial fibrillation on telemetry. Diagnostic Data: The patient had head CT, showed no acute pathology. Chest x-ray showed extensive b ilateral airspace disease similar to prior imaging. CBC; white cell count of 15.2, hemoglobin 9.8, h ematocrit 30.4, and platelets 139. Chemistry; BUN 100, creatinine 1.11, GFR of 48. Blood sugar fing ersticks noted 180-126. Assessment And Plan: COVID pneumonia, suspect the patient had viral encephalopathy from that and mul tiple organ failure, respiratory and kidney. She is not doing well and family and daughter are aware of that. We will continue supportive care with mechanical ventilation. Long-term acute care facili ty still pending to see if we can transfer the patient there. Look orders for details. MFS/MODL Voice ID: [id number] Report ID: [id number]
[2021-04-22] MEDS: INSULIN GLARGINE 100 UNITS/ML SQ SCH (16:47)
[2021-04-22] MEDS: FUROSEMIDE 40 MG/4 ML VIAL IV SCH (17:38)
[2021-04-23] MEDS: CEFEPIME/SWI 1gm 10 ML IV SCH ×2 (01:28→15:08)
[2021-04-23] MEDS: HALOPERIDOL LACT 5 MG/ML INJ IV PRN ×2 (03:31→23:37)
[2021-04-23] MEDS: MIDAZOLAM HCL 2 MG/2 ML INJ IV PRN ×2 (03:32→23:37)
[2021-04-23] MEDS: INSULIN -REGULAR HUMAN 50 UNIT/0.5 ML ML SQ SCH ×4 (05:49→17:47)
[2021-04-23] MEDS: LORazepam 2 MG/ML VIAL IV PRN ×2 (06:03→08:25)
[2021-04-23] MEDS: BARICITINIB 2 MG TABLET PO SCH (08:24)
[2021-04-23] MEDS: FAMOTIDINE 20 MG/2 ML VIAL IV SCH (08:24)
[2021-04-23] MEDS: METHYLPREDNISOLONE 40 MG INJ IV SCH ×2 (08:24→21:16)
[2021-04-23] MEDS: ASCORBIC ACID 500 MG TABLET FT SCH (08:24)
[2021-04-23] MEDS: APIXABAN 5 MG TABLET PO SCH ×2 (08:24→21:16)
[2021-04-23] MEDS: VITAMIN D 1000 UNIT TAB PO SCH (08:24)
--- NOTE | 2021-04-23 08:52 | P.PN ---
Subjective Date of Service: 04/23/21 Chief Complaint: resp failure unresponsive No change in patient's no change in patient's condition continues to remain unresponsive and hypoxic Review of Systems is unable to be obtained Physical Examination - Vital Signs Temperature: 96.5 F Blood Pressure: 145/86 Pulse: 134 Respirations: 22 Pulse Ox (%): 96 - Physical Exam General: Comatose Other Physical/Emotional Findings: Intubated; sedated. Irreg irreg. coarse B/S. Distended soft. 1+ pitting at thighs; 2+ edema upper extremities. Almeida clear yellow urine Assessment & Plan - Problems (Diagnosis) (1) Pneumonia due to COVID-19 virus Current Visit: Yes Status: Acute Plan: Respiratory failure note respiratory failure no change remains on 50% FiO2 unresponsive white count declining white count declining prognosis very poor prognosis poor/ (2) Candidiasis Current Visit: Yes Status: Acute Plan: Continue with micafungin no change
[2021-04-23 09:55] LABS: Potassium 4.7 mmol/L (3.5-5.1)
[2021-04-23] MEDS: MICAFUNGIN SODIUM 100 MG in NA CHLORIDE 0.9% 100 ML IV SCH (12:00)
--- NOTE | 2021-04-23 13:48 | PN ---
Date of Progress Note: 04/23/2021 Subjective: The patient is seen in Intensive Care Unit in Room 7 at [facility] in [facility]. The patient is still in critical condition, still quite sedated, unresponsive, on ventilator. Condition on ventilator is similar to yesterday with SIMV at 50% oxygen. The patient's swelling is stable. She has had reasonable urine output overnight in about mid 2000 range. She has had about n egative 1500 mL over the last 24 hours. Has been tolerating Lasix well, not on any pressors currentl y. Objective: Vital Signs: Blood pressure is running in 120-130 range. Currently, it is 120 systolic. Vitals reasonably stable. Lungs: With scattered wheezing. Abdomen: Soft. Extremities: Reveal edema bilaterally. Cellulitis seems to have resolved. Laboratory Data: Reviewed. The patient's BUN and creatinine have improved slightly from yesterday. Assessment And Plan: Acute kidney injury/ATN/COVID pneumonia. The patient continues to be in critic al condition, on vent support. Continuing to tolerate Lasix, we will continue 40 mg today for now IV , hold for SBP less than 110. The patient is on antifungal medication IV. She is on vent support. Prognosis continues to be guarded, not making significant recovery, and still requiring quite a gokul r respiratory support and not waking up despite being held off sedation. /CRISTO Voice ID: [id number] Report ID: [id number]
--- NOTE | 2021-04-23 17:41 | PN ---
Subjective: The patient is unresponsive on mechanical ventilation. Objective: Vital Signs: Blood pressure 90/60, pulse 107, temperature 96.5. The patient has a histo ry of fibrillation. Heart: Irregular rate. Chest: Bilateral crackles. Abdomen: Benign. Bowel sounds are active. Extremities: Chronic lymphedema in the lower extremities. Trace edema of upper extremities. Laboratory Data: White cell count 15.2, hemoglobin 9.8, hematocrit 30.4, platelets 139. Chemistry; BUN 96, creatinine 1.07, GFR 50. Blood sugar fingersticks in the low 100s. Assessment And Plan: 1.COVID infection with COVID pneumonia and I suspect also COVID encephalopathy. As the patient is u nresponsive and she was not getting significant amount of sedation, we will continue supportive care. Her daughter wants to keep her on mechanical ventilation for now. She understands the grim outcome . 2.Type 2 diabetes. Blood sugar fingersticks better controlled. We have lowered her Lantus requirem ent. 3.Acute on chronic renal failure, stable. 4.Anemia of chronic disease, stable. Look orders for details. MFS/MODL Voice ID: [id number] Report ID: [id number]
[2021-04-23] MEDS: FUROSEMIDE 40 MG/4 ML VIAL IV SCH (17:46)
[2021-04-23] MEDS: INSULIN GLARGINE 100 UNITS/ML SQ SCH (17:46)
[2021-04-24] MEDS: INSULIN -REGULAR HUMAN 50 UNIT/0.5 ML ML SQ SCH ×4 (01:15→18:18)
[2021-04-24] MEDS: CEFEPIME/SWI 1gm 10 ML IV SCH ×2 (02:00→14:00)
[2021-04-24] MEDS: LORazepam 2 MG/ML VIAL IV PRN (08:36)
[2021-04-24] MEDS: METHYLPREDNISOLONE 40 MG INJ IV SCH ×2 (08:36→21:37)
[2021-04-24] MEDS: FUROSEMIDE 40 MG/4 ML VIAL IV SCH (08:36)
[2021-04-24] MEDS: MICAFUNGIN SODIUM 100 MG in NA CHLORIDE 0.9% 100 ML IV SCH (08:37)
[2021-04-24] MEDS: VITAMIN D 1000 UNIT TAB PO SCH (08:37)
[2021-04-24] MEDS: ASCORBIC ACID 500 MG TABLET FT SCH (08:37)
[2021-04-24] MEDS: APIXABAN 5 MG TABLET PO SCH ×2 (08:38→21:38)
[2021-04-24] MEDS: FAMOTIDINE 20 MG/2 ML VIAL IV SCH (08:38)
--- NOTE | 2021-04-24 12:10 | PN ---
Subjective: Patient still unresponsive on mechanical ventilation and in atrial fibrillation also. Objective: Vital Signs: Blood pressure 143/98, pulse 134, temperature 97.8. Heart: Regular rate and rhythm. Tachycardic. Chest: Bilateral crackles. Abdomen: Soft, benign. Bowel sounds are active. Extremities: Chronic lymphedema. Neurological: The patient is unresponsive. She tends to move her extremities but unresponsive. Diagnostic Data: Patient's chemistries, BUN 108, creatinine 1.12, GFR 47. Blood sugar fingersticks below 200, more than 100. Assessment And Plan: 1.COVID pneumonia with also likely viral encephalopathy, being unresponsive. We will continue suppo rtive care and mechanical ventilation for respiratory failure. 2.Chronic renal failure. No significant change from yesterday. 3.Anemia of chronic illness, clinically stable. We will follow up on CBC. 4.Type 2 diabetes. We will continue her on current Lantus and regular insulin sliding scale and blo od sugar fingersticks. The patient is going to need maybe tracheostomy if she is going to continue o n mechanical ventilation. Dr. Tam, Pulmonary, is following the case; and Dr. Verdugo, Nephrology, i s following the case. MFS/MODL Voice ID: [id number] Report ID: [id number]
--- NOTE | 2021-04-24 12:22 | P.PN ---
Subjective Date of Service: 04/24/21 Chief Complaint: resp failure Respiratory failure respiratory failure minimally responsive opening eyes Review of Systems is unable to be obtained Physical Examination - Vital Signs Temperature: 97.8 F Blood Pressure: 143/98 Pulse: 134 Respirations: 22 Pulse Ox (%): 92 - Physical Exam General: Unresponsive Other Physical/Emotional Findings: Intubated; sedated. Irreg irreg. coarse B/S. Distended soft. 1+ pitting at thighs; 2+ edema upper extremities. Almeida clear yellow urine Assessment & Plan - Problems (Diagnosis) (1) Pneumonia due to COVID-19 virus Current Visit: Yes Status: Acute Plan: Respiratory failure continue respiratory failure titrate O2 down to a sat of 90% white count is declining renal white count declining renal function is worse Taper off steroid taper off steroids (2) Candidiasis Current Visit: Yes Status: Acute Plan: Continue with micafungin no change white count is declining
--- NOTE | 2021-04-24 13:58 | PN ---
Date of Progress Note: 04/24/2021 Subjective: The patient is seen and examined at bedside. She remains intubated and sedated. She is on 45% FiO2. She is not on any pressors. She seems to be stable. Objective: General Examination: She appears in no acute distress. Lungs: Auscultation of lungs revealed bilateral equal air entry. Abdomen: Soft and nontender. Extremities: Showed edema. Vital Signs: Temperature of 97.8, pulse rate of 134, respiratory rate of 22, and blood pressure 143/ 98. Laboratory Data: Showing creatinine of 1.12. Other electrolytes are stable. Potassium is stable at 5. CBC showing a WBC count of 15,000, hemoglobin of 9.8, hematocrit 30.4, and platelet count of 139 . Medications: Current medications include Eliquis 5 mg b.i.d., ascorbic acid, benzonatate p.r.n., Nim bishop, Lasix 40 mg IV daily, lorazepam p.r.n., micafungin, Versed. Impression: 1.COVID-19 pneumonia leading to respiratory failure, currently intubated and the patient is being ma naged by Dr. Jackson. 2.Acute renal failure has resolved. 3.Volume overload. Currently on Lasix. 4.Hyperkalemia, currently stable. 5.Edema. Continue gentle diuresis with Lasix. 6.Malnutrition. Continue tube feedings. Plan: Overall, the patient is hemodynamically stable but overall poor prognosis because of COVID-19 pneumonia. Continue all other medications and supportive care. Renal function continues to be stable. She is getting micafungin for the candidiasis. Continue to monitor renal function. VV/MODL Voice ID: [id number] Report ID: [id number]
[2021-04-24 17:54] LABS: Arterial Blood Carboxyhemoglob 1.8 % (0-1.5); Blood Gas Oxyhemoglobin 87.4 % (94-97); Blood O2 Saturation 89.9 % (92-98.5)
[2021-04-24] MEDS: FENOFIBRATE 160 MG TAB PO SCH (18:18)
[2021-04-24] MEDS: INSULIN GLARGINE 100 UNITS/ML SQ SCH (18:18)
[2021-04-24] MEDS: MIDAZOLAM HCL 2 MG/2 ML INJ IV PRN (22:42)
[2021-04-25] MEDS: INSULIN -REGULAR HUMAN 50 UNIT/0.5 ML ML SQ SCH ×4 (00:07→16:42)
[2021-04-25] MEDS: LORazepam 2 MG/ML VIAL IV PRN ×3 (00:08→20:23)
[2021-04-25] MEDS: CEFEPIME/SWI 1gm 10 ML IV SCH (01:38)
[2021-04-25] MEDS: HALOPERIDOL LACT 5 MG/ML INJ IV PRN (02:54)
[2021-04-25 05:34] VITALS: BMI 45.1
[2021-04-25 05:47] LABS: Absolute Lymphocytes (CBC) 0.1 K/uL (0.7-4.9); Basophils % 0.3 % (0-1.3); Lymphocytes % 0.7 % (15.3-44.8); MPV 11.3 fL (7.6-11.3); RBC Red Blood Cell Count 3.55 M/uL (3.86-4.86)
[2021-04-25 05:58] LABS: C-Reactive Protein 4.29 mg/L (<3.00); Ferritin 1045.2 ng/mL (8-388); Phosphorus 3.8 mg/dL (2.5-4.9); Potassium 5.3 mmol/L (3.5-5.1)
[2021-04-25] MEDS: ASCORBIC ACID 500 MG TABLET FT SCH (07:36)
[2021-04-25] MEDS: FUROSEMIDE 40 MG/4 ML VIAL IV SCH (07:36)
[2021-04-25] MEDS: VITAMIN D 1000 UNIT TAB PO SCH (07:36)
[2021-04-25] MEDS: METHYLPREDNISOLONE 40 MG INJ IV SCH ×2 (07:37→19:48)
[2021-04-25] MEDS: FAMOTIDINE 20 MG/2 ML VIAL IV SCH (07:37)
[2021-04-25] MEDS: APIXABAN 5 MG TABLET PO SCH ×2 (07:37→19:43)
--- NOTE | 2021-04-25 08:16 | P.PN ---
Subjective Date of Service: 04/25/21 Chief Complaint: resp failure No change FiO2 has been reduced to 40% still continues to remain unresponsive Review of Systems is unable to be obtained Physical Examination - Vital Signs Temperature: 96.9 F Blood Pressure: 132/88 Pulse: 131 Respirations: 27 Pulse Ox (%): 92 - Physical Exam General: Unresponsive Other Physical/Emotional Findings: Intubated; sedated. Irreg irreg. coarse B/S. Distended soft. 1+ pitting at thighs; 2+ edema upper extremities. Almeida clear yellow urine Assessment & Plan - Problems (Diagnosis) (1) Pneumonia due to COVID-19 virus Current Visit: Yes Status: Acute Plan: Respiratory failure/no change otherwise will continue to taper down steroids DC cefepime chest x-ray shows severe bilateral pneumonia prognosis poor (2) Candidiasis Current Visit: Yes Status: Acute Plan: Continue with micafungin no change white count is declining
--- NOTE | 2021-04-25 08:18 | RAD REPORT ---
EXAM DESCRIPTION: RAD - Chest Single View - 04/25/2021 5:45 am CLINICAL HISTORY: intubated COMPARISON: Chest Single View dated 04/22/2021; Chest Single View dated 04/21/2021; Chest Single View dated 04/20/2021; Chest Single View dated 04/19/2021 FINDINGS: Lines: Endotracheal tube is at the level of the aortic arch. Weighted feeding tube below t he hemidiaphragm. Right-sided chest tube in position. Lungs: Similar widespread bilateral airspace disease. Pleural: No significant pleural effusions or pneumothorax. Cardiac: Cardiomegaly. Bones: No acute fractures. Other: IMPRESSION: No significant change in aeration of the lungs with widespread bilateral airspace diseas e. Support apparatus in satisfactory position.
[2021-04-25 08:29] LABS: Blood Morphology Comment NOT SEEN (NOT SEEN); Hypersegmented Neutrophils PRESENT; Platelet Estimate ADEQ; Platelets, Giant FEW
[2021-04-25] MEDS: MICAFUNGIN SODIUM 100 MG in NA CHLORIDE 0.9% 100 ML IV SCH (08:37)
--- NOTE | 2021-04-25 13:29 | PN ---
Date of Progress Note: 04/25/2021 Subjective: The patient was seen and examined at bedside. She is doing okay. She remains intubated and sedated. She is responding a little bit neurologically. In's and Out's have been reviewed. Medications: Have been reviewed. Objective: General: She is intubated and sedated. HEENT: Atraumatic head. Exam limited secondary to PPE overuse. Laboratory Data: Has been reviewed in detail. Impression: 1.Acute renal failure, resolved. 2.Mild hyperkalemia. 3.Respiratory failure secondary to COVID-19 pneumonia. 4.Encephalopathy secondary to prolonged intubation. 5.Candidiasis, remains on micafungin. 6.Severe debility and weakness. Plan: Overall the patient is doing okay. Continue with Lasix 40 mg once a day. Monitor potassium. Monitor In's and Out's. Avoid further hypotension, nephrotoxins. Antibiotics being dosed appropria tely. Steroids being weaned down. VV/MODL Voice ID: [id number] Report ID: [id number]
--- NOTE | 2021-04-25 14:05 | PN ---
Subjective: The patient is still unresponsive and on mechanical ventilation. Objective: Blood pressure 100/70, pulse is 120, temperature 96.9. Rest of her physical examination, no change. The patient is still in atrial fibrillation. Laboratory Data: Blood sugar fingersticks noted 204 to 172. White cell count 17.5, hemoglobin 10.3, hematocrit 32, and platelets 139. Chemistry; GFR of 48, BUN 104, creatinine 1.10, potassium 5.3. C -reactive protein 4.29. Assessment And Plan: 1.The patient is still doing poorly with COVID-19 pneumonia and encephalopathy. We will continue fulton pportive care for now. 2.Tachycardia with atrial fibrillation. We will put the patient on small dose of metoprolol 12.5 b. i.d. to slow down her heart rate. We will decrease her Lasix to 20 IV instead of 40. 3.Kidney failure, acute on chronic, stable for now. 4.Anemia of chronic disease, stable. Prognosis poor, however, the patient's daughter wishes to cont inue supportive care and current management. MFS/MODL Voice ID: [id number] Report ID: [id number]
[2021-04-25] MEDS: METOPROLOL TAR 25 MG TAB PO SCH (16:42)
[2021-04-25] MEDS: FENOFIBRATE 160 MG TAB PO SCH (16:43)
[2021-04-25] MEDS: INSULIN GLARGINE 100 UNITS/ML SQ SCH (16:43)
[2021-04-25] MEDS: FENTANYL CITR 100 MCG/2 ML IV PRN ×2 (17:56→21:23)
[2021-04-26] MEDS: INSULIN -REGULAR HUMAN 50 UNIT/0.5 ML ML SQ SCH ×4 (01:23→18:00)
[2021-04-26] MEDS: FENTANYL CITR 100 MCG/2 ML IV PRN ×2 (01:36→19:45)
[2021-04-26 05:54] LABS: Potassium 5.5 mmol/L (3.5-5.1)
[2021-04-26] MEDS: METOPROLOL TAR 25 MG TAB PO SCH (06:35)
[2021-04-26] MEDS: APIXABAN 5 MG TABLET PO SCH ×2 (08:07→20:10)
[2021-04-26] MEDS: VITAMIN D 1000 UNIT TAB PO SCH (08:08)
[2021-04-26] MEDS: ASCORBIC ACID 500 MG TABLET FT SCH (08:08)
[2021-04-26] MEDS: FAMOTIDINE 20 MG/2 ML VIAL IV SCH (08:09)
[2021-04-26] MEDS: METHYLPREDNISOLONE 40 MG INJ IV SCH ×2 (08:09→20:11)
[2021-04-26] MEDS: MICAFUNGIN SODIUM 100 MG in NA CHLORIDE 0.9% 100 ML IV SCH (08:50)
[2021-04-26] MEDS: FUROSEMIDE 20 MG/ 2ML VIAL IV SCH (09:54)
--- NOTE | 2021-04-26 11:00 | PN ---
Subjective: The patient is unresponsive on mechanical ventilation. Continues in atrial fibrillation . Objective: Vital Signs: Also, blood pressure 140/80, pulse 113, temperature 97.9. Heart: Tachycardic. Regular rate. Chest: Bilateral crackles. Abdomen: Soft, benign. Neurological: Unresponsive as mentioned above. No change. Extremities: Chronic lymphedema of the lo wer extremities. No change . The patient continues to be unresponsive and on mechanical v entilation, still waiting answer. Patient also wants her to have to continue supportive c are . 1.Continue supportive care. 2.We will continue supportive care. Patient's chronic anemia, renal function, and diabetes all no s ignificant change. We will monitor blood count and electrolytes. We will follow Nephrology and Pulm onary recommendations. Tachycardia with atrial fibrillation is better on a low-dose metoprolol, we w ill continue. MFS/MODL Voice ID: [id number] Report ID: [id number]
[2021-04-26] MEDS ORDERED: SOD POLYSTYREN SUL 15 GM/60 ML UCUP PO ONE (11:32)
--- NOTE | 2021-04-26 11:34 | P.PN ---
Subjective Date of Service: 04/26/21 Chief Complaint: resp failure No change unable to wean patient off from the ventilator minimally responsive Review of Systems is unable to be obtained Physical Examination - Vital Signs Temperature: 97.9 F Blood Pressure: 150/88 Pulse: 112 Respirations: 16 Pulse Ox (%): 96 - Physical Exam General: Unresponsive Other Physical/Emotional Findings: Intubated; sedated. Irreg irreg. coarse B/S. Distended soft. 1+ pitting at thighs; 2+ edema upper extremities. Almeida clear yellow urine Assessment & Plan - Problems (Diagnosis) (1) Pneumonia due to COVID-19 virus Current Visit: Yes Status: Acute Plan: Respiratory failure no change will consider trach 20 days after intubation mild hyperkalemia Kayexalate renal function worse creatinine is worsening BUN is elevated white count stable patient is on low-dose Solu-Medrol prognosis poor currently on 50% FiO2 (2) Candidiasis Current Visit: Yes Status: Acute Plan: Continue with micafungin
[2021-04-26] MEDS: METOPROLOL TARTRATE 5 MG/5 ML INJ IV SCH (17:06)
[2021-04-26] MEDS: FENOFIBRATE 160 MG TAB PO SCH (17:09)
[2021-04-26] MEDS: INSULIN GLARGINE 100 UNITS/ML SQ SCH (17:09)
--- NOTE | 2021-04-26 20:35 | P.PN ---
Date of Service: 04/26/21 Vital Signs Temp Pulse Resp BP Pulse Ox 97.6 F 121 H 16 114/62 97 04/26/21 16:00 04/26/21 18:00 04/26/21 19:45 04/26/21 18:00 04/26/21 19:45 Medications Acetaminophen (Acetaminophen 500 Mg Tab) 500 mg PO Q6H PRN PRN Reason: TEMP > 100' F Last Admin: 04/05/21 07:17 Dose: 500 mg Documented by: Apixaban (Apixaban 5 Mg Tablet) 5 mg PO BID [facility] Last Admin: 04/26/21 20:10 Dose: 5 mg Documented by: Ascorbic Acid (Ascorbic Acid 500 Mg Tablet) 500 mg FT DAILY [facility] Last Admin: 04/26/21 08:08 Dose: 500 mg Documented by: Benzonatate (Benzonatate 100 Mg Cap) 200 mg PO TID PRN PRN Reason: COUGH Last Admin: 04/08/21 18:35 Dose: 200 mg Documented by: Cholecalciferol (Vitamin D 1000 Unit Tab) 1,000 unit PO DAILY [facility] Last Admin: 04/26/21 08:08 Dose: 1,000 unit Documented by: Dextrose (D50w 25 Gm/50 Ml Syringe) 12.5 gm IV PRN PRN; Protocol PRN Reason: HYPOGLYCEMIA Famotidine (Famotidine 20 Mg/2 Ml Vial) 20 mg IV DAILY [facility] Last Admin: 04/26/21 08:09 Dose: 20 mg Documented by: Fenofibrate (Fenofibrate 160 Mg Tab) 160 mg PO DAILY AT SUPPER [facility] Last Admin: 04/26/21 17:09 Dose: 160 mg Documented by: Fentanyl Citrate (Fentanyl Citr 100 Mcg/2 Ml) 25 mcg IV Q4H PRN PRN Reason: Pain scale 8-10 (Severe) Last Admin: 04/26/21 19:45 Dose: 25 mcg Documented by: Furosemide (Furosemide 20 Mg/ 2ml Vial) 20 mg IV DAILY [facility] Last Admin: 04/26/21 09:54 Dose: 20 mg Documented by: Glucagon (Glucagon 1 Mg/Vial) 1 mg IM 1X PRN; Protocol PRN Reason: HYPOGLYCEMIA Haloperidol Lactate (Haloperidol Lact 5 Mg/Ml Inj) 2 mg IV Q4H PRN PRN Reason: AGITATION Last Admin: 04/25/21 02:54 Dose: 2 mg Documented by: Pharmacy Consult (Pharmacy Consult) 1 mls @ 1 mls/hr XX DAILYPRN PRN; Protocol PRN Reason: Vancomycin dose by pharmacy Pharmacy Consult (Pharmacy Consult) 1 mls @ 1 mls/hr XX DAILYPRN PRN; Protocol PRN Reason: Vancomycin dose by pharmacy Micafungin Sodium 100 mg/ (Sodium Chloride) 100 mls @ 100 mls/hr IV DAILY [facility] Last Admin: 04/26/21 08:50 Dose: 100 mls Documented by: Insulin Glargine (Insulin Glargine 100 Units/Ml) 30 units SQ DAILY AT SUPPER [facility] Last Admin: 04/26/21 17:09 Dose: 30 units Documented by: Insulin Human Regular (Insulin -Regular Human 50 Unit/0.5 Ml Ml) 0 unit SQ Q6HR [facility]; Protocol Last Admin: 04/26/21 18:00 Dose: Not Given Documented by: Lorazepam (Lorazepam 2 Mg/Ml Vial) 2 mg IV Q2HP PRN PRN Reason: SEDATION Last Admin: 04/25/21 20:23 Dose: 2 mg Documented by: Methylprednisolone Sodium Succinate (Methylprednisolone 40 Mg Inj) 20 mg IV Q12HR [facility] Last Admin: 04/26/21 20:11 Dose: 20 mg Documented by: Metoprolol Tartrate (Metoprolol Tartrate 5 Mg/5 Ml Inj) 2.5 mg IV Q6H [facility] Last Admin: 04/26/21 17:06 Dose: 2.5 mg Documented by: Midazolam HCl (Midazolam Hcl 2 Mg/2 Ml Inj) 2 mg IV Q4HP PRN PRN Reason: Anxiety Last Admin: 04/24/21 22:42 Dose: 2 mg Documented by: Nutritional Formula (Vital Hp 1,000 Ml Bot) 0 ml RTH CONT [facility] Last Admin: 04/21/21 23:13 Dose: 1,000 ml Documented by: Ondansetron HCl (Ondansetron 4 Mg/2 Ml Vial) 4 mg IV Q6H PRN PRN Reason: NAUSEA / VOMITING Sodium Chloride (Flush Normal Saline 10 Ml) 10 ml IV BID [facility] Last Admin: 04/26/21 20:10 Dose: 10 ml Documented by: Assessment/ Plan: Nephrology Progress Note Limited IH/ROS due to critical illness/ sedation Good urine output. Worsening tachycardia. No acute events overnight Vitals, medications blood work and imaging reviewed in the chart General: In no apparent distress, Unresponsive HEENT: Atraumatic Neck: Supple Respiratory: BL rales Cardiovascular: Regular rate/rhythm, Edema Gastrointestinal: Soft and benign, Non-distended Musculoskeletal: No clubbing, No contractures Integumentary: No rashes, No cyanosis, Other (BL LE Lichenification) Greater than 30min patient care. Blood work reviewed in the chart. Imagings Data: EXAM DESCRIPTION: [place] Single View04/13/2021 6:54 am CLINICAL HISTORY: Shortness of breath COMPARISON: April 12, 2020 FINDINGS: Endotracheal tube has its tip just above the evie. Enteric tube within the stomach. No significant change in bilateral pulmonary opacities. Heart remains enlarged. Right chest tube in place without visualization of a pneumothorax IMPRESSION: Endotracheal tube has its tip just above the evie. It should be retracted approximately centimeters. No significant change in the diffuse bilateral pulmonary opacities. Conclusions/Impression: EMIGDIO may be due to hypovolemia Uremia likely due to steroids -No NSAIDs Hyperkalemia -Kayexalate as needed Hypocalcemia -Continue Vitamin D3 HyperPO4 Septic Shock/ Hypotension HTN with tachycardia -Start Lopressor IV 2.5mg q6h and titrate as needed Hypervolemia -Continue Lasix DM II with hyperglycemia & CKD -Continue Lantus -Aggressive RISS Severe malnutrition -Maintain nutrition Anemia in chronic illness -Monitor H&H Acute hypoxic respiratory failure COVID-19 PNA -Ventilatory support as ordered -Continue Solumedrol
[2021-04-27] MEDS: METOPROLOL TARTRATE 5 MG/5 ML INJ IV SCH ×4 (00:11→16:42)
[2021-04-27] MEDS: INSULIN -REGULAR HUMAN 50 UNIT/0.5 ML ML SQ SCH ×4 (00:11→16:42)
[2021-04-27] MEDS: FENTANYL CITR 100 MCG/2 ML IV PRN ×2 (03:00→16:41)
[2021-04-27 05:06] LABS: Absolute Lymphocytes (CBC) 0.1 K/uL (0.7-4.9); Basophils % 0.2 % (0-1.3); Hematocrit 30.2 % (36.0-45.0); Lymphocytes % 0.6 % (15.3-44.8); MPV 10.8 fL (7.6-11.3); RBC Red Blood Cell Count 3.32 M/uL (3.86-4.86)
[2021-04-27 05:51] LABS: Potassium 5.2 mmol/L (3.5-5.1)
--- NOTE | 2021-04-27 07:36 | RAD REPORT ---
EXAM DESCRIPTION: [facility] Single View04/27/2021 7:11 am CLINICAL HISTORY: Respiratory failure COMPARISON: April 25, 2021 FINDINGS: Right chest tube remains place. Pneumothorax not visualized. Minimal worsening the diffuse bilateral pulmonary opacities. Endotracheal tube that level of aortic arch. Tube enters the stomach. Heart is enlarged. Equivocal small amount of pneumomediastinum. IMPRESSION: Minimal worsening diffuse bilateral pulmonary opacities probably pneumonia Right chest tube place without visualization pneumothorax Equivocal small amount of pneumomediastinum
[2021-04-27] MEDS: MIDAZOLAM HCL 2 MG/2 ML INJ IV PRN (07:50)
[2021-04-27] MEDS ORDERED: NOREPINEPHRINE 4 MG in D5W 250 ML IV PRN (08:07)
--- NOTE | 2021-04-27 08:27 | RAD REPORT ---
EXAM DESCRIPTION: [facility] Single View04/27/2021 8:13 am CLINICAL HISTORY: Code blue COMPARISON: April 27, 2021 FINDINGS: Since an earlier film there has been development of a large tension left pneumothorax. Extensive right subcutaneous emphysema has developed. Pneumomediastinum is present. Small amount of l eft lateral subcutaneous emphysema Lucency overlying right upper abdomen may represent pneumoperitoneum. Progression right lung opacities representing a combination of pneumonia and passive atelectasis. Fee ding tube is not clearly visualized on this examination. Right chest tube in place without visualization of pneumothorax IMPRESSION: Development of a large tension left pneumothorax. Exam was discussed with Doctor Leah howard 8:16 a.m. April 27, 2021
--- NOTE | 2021-04-27 08:53 | RAD REPORT ---
EXAM DESCRIPTION: [place] Single View04/27/2021 8:41 am CLINICAL HISTORY: Device placement left chest tube placement IMPRESSION: Left chest tube has been inserted. Tip overlies the medial lower left hemithorax. Left lung has re-expanded with minimal residual pneumothorax
[2021-04-27] MEDS: APIXABAN 5 MG TABLET PO SCH (09:00)
[2021-04-27] MEDS: METHYLPREDNISOLONE 40 MG INJ IV SCH (09:00)
[2021-04-27] MEDS: VITAMIN D 1000 UNIT TAB PO SCH (09:00)
[2021-04-27] MEDS: FUROSEMIDE 20 MG/ 2ML VIAL IV SCH (09:00)
[2021-04-27] MEDS: ASCORBIC ACID 500 MG TABLET FT SCH (09:00)
[2021-04-27] MEDS: FAMOTIDINE 20 MG/2 ML VIAL IV SCH (09:00)
[2021-04-27] MEDS: MICAFUNGIN SODIUM 100 MG in NA CHLORIDE 0.9% 100 ML IV SCH (09:00)
[2021-04-27 11:01] LABS: Absolute Lymphocytes (CBC) 0.1 K/uL (0.7-4.9); Basophils % 0.2 % (0-1.3); Hematocrit 28.9 % (36.0-45.0); Lymphocytes % 0.4 % (15.3-44.8); MPV 11.4 fL (7.6-11.3); RBC Red Blood Cell Count 3.14 M/uL (3.86-4.86)
[2021-04-27 11:25] LABS: Bilirubin Total 1.1 mg/dL (0.2-1.0); Potassium 5.1 mmol/L (3.5-5.1); Protein, Total 5.6 g/dL (6.4-8.2)
--- NOTE | 2021-04-27 12:04 | PN ---
Subjective: The patient this morning had collapsed right lung, went into tension pneumothorax from b oth lungs. She went into asystole. She had to be coded and had chest tube to reinflate both lungs. She had already the one on the right. At this time, the patient is comatose. Objective: Vital Signs: Blood pressure 103/80, pulse at 110. Her temperature earlier this morning was 97, she is still in atrial fibrillation. Heart: Tachycardic. Regular. Chest: Faint bilateral breath sounds heard. Abdomen: Benign. Neurological: Comatose. Laboratory Data: This morning; her white cell count was 12.7, hemoglobin 9.7, hematocrit 30.1, plate lets 103. Potassium 5.2, CO2 35, BUN 114, creatinine 1.12, GFR 47. Blood sugar fingersticks since y esterday below 200, more than 100. Assessment And Plan: I sat down with the patient's 2 daughters and her son and explained to them the poor outcome anticipated after this pneumothorax and that the patient had encephalopathy from the vi mayra and now had systole and respiratory collapse and with everything happening, the outcome is not ex pected to be in the patient's favor and that her prognosis is extremely poor and asked them should th ey want us to do any more CPR if her heart stops or any other options like withdrawal or withhold. T hey still have to talk it among themselves, unable to make a decision. So meanwhile, we will continu e the supportive care pending the family decision knowing that made sure that they understand the patient's extremely poor prognosis and outcome is very poor and that we are waiting on the decision. MFS/MODL Voice ID: [id number] Report ID: [id number]
--- NOTE | 2021-04-27 12:16 | P.PN ---
Subjective Date of Service: 04/27/21 Chief Complaint: Cardiopulmonary arrest Patient had a cardiopulmonary arrest today in addition to left-sided pneumothorax and a chest tube in the left side was emergency inserted currently patient is unresponsive with apneic breathing on the ventilator Review of Systems is unable to be obtained Physical Examination - Vital Signs Temperature: 96.9 F Blood Pressure: 128/96 Pulse: 152 Respirations: 19 Pulse Ox (%): 94 - Physical Exam General: Unresponsive Other Physical/Emotional Findings: Intubated; sedated. Irreg irreg. coarse B/S. Distended soft. 1+ pitting at thighs; 2+ edema upper extremities. Almeida clear yellow urine Assessment & Plan - Problems (Diagnosis) (1) Pneumonia due to COVID-19 virus Current Visit: Yes Status: Acute Plan: Respiratory failure status post cardiac arrest CPR and left-sided chest tube/prognosis is poor she is probably has significant anoxic brain damage discuss with all her family members/recommend DNR and withdrawal of care multiorgan failure renal function is worse (2) Candidiasis Current Visit: Yes Status: Acute Plan: Continue with micafungin
[2021-04-27 13:00] LABS: Blood Morphology Comment NOT SEEN (NOT SEEN); Platelet Estimate DECR
[2021-04-27 14:20] VITALS: O2SAT 93
[2021-04-27] MEDS: INSULIN GLARGINE 100 UNITS/ML SQ SCH (16:42)
[2021-04-27] MEDS: FENOFIBRATE 160 MG TAB PO SCH (16:42)
[2021-04-27 17:22] VITALS: TEMP 97.2
[2021-04-27 17:23] VITALS: BP 179/100
[2021-04-27] MEDS ORDERED: EPINEPHrine 1 MG/10 ML SYR IV ONE (17:55)
--- NOTE | 2021-04-30 11:02 | EKG ---
Test Date: 2021-04-27 Test Time: 08:13:53 Box Lidder: WILI MEASUREMENT RESULTS: Intervals: Rate: 155 MN: QRSD: 116 QT: 320 QTc: 514 [place]: P: MN: QRS: -88 T: 102 INTERPRETIVE STATEMENTS: vt Left axis deviation Low voltage QRS Right bundle branch block Possible Lateral infarct, age undetermined Inferior infarct, age undetermined Abnormal ECG Compared to ECG 04/14/2021 22:23:14 Left ventricular hypertrophy no longer present ST (T wave) deviation no longer present Possible ischemia no longer present Myocardial infarct finding still present Electronically Signed On 04-30-21 10:55:18 CDT by Cameron Peterson
--- NOTE | 2021-05-08 05:33 | DS ---
Date of Discharge: 04/27/2021 History Of Present Illness: A 80-year-old female who was admitted to the hospital because of shortne ss of breath secondary to COVID-19 pneumonia. At the time of admission, she was complaining of short ness of breath and coughing. Past Medical History: As per admit note. Social History: As per admit note. Family History: As per admit note. Medications: As per admit note. Allergies: PER ADMIT NOTE. Physical Examination: As per admit note. Diagnostic Data: As per admit note. Hospital Course: The patient was admitted to the hospital. She was put on oxygen protocol, on IV st eroids, and for prophylaxis for thrombosis on Eliquis. She had cellulitis in her lower extremity, pu t on IV antibiotics, vitamin D3, and magnesium. The patient was put on regular insulin sliding scale for her diabetes and we monitored her anemia of chronic illness and the rest of her chronic medical problems. Gradually pneumonia worsened to where she went into acute respiratory failure. She needed to be on more oxygen and then CPAP and then she had to be intubated for mechanical ventilation. At that time, Dr. Mars also was consulted to see the patient with us. He managed her COVID pneumoni a with us. At that time, however, the patient continued to worsen to where she went into also coma a nd we thought the patient had COVID-19 encephalopathy viral that she is not waking up. Also, the pat ient had right pneumothorax. We went ahead and I asked Dr. Arita to put a chest tube in and then she had another tension pneumothorax on the left. With this worsening condition all in all and the p atient is not waking up and had a prolonged mechanical ventilation and supportive care and a prolonge d deteriorating course, discussed all that with the family and they decided to withdraw the mechanica l ventilation and withhold, and looking at the interim outlook and prognosis for this unfortunate pat rachel, she was extubated and then she a few hours after that. MFS/MODL Voice ID: [id number] Report ID: [id number]
== END 2021-04-27 17:56 | disposition expired | DRG 207 ==
LOC: ER 17:51 → ERHOLD 04-05 03:08 → 3RD-ICU 04-05 21:03
PROVIDERS: ADMIT Internal Medicine; ATTEND Internal Medicine
PROC: 0W9930Z Drainage of Right Pleural Cavity with Drainage Device, Percutaneous Approach (ICD-10-PCS; principal; 2021-04-10)
PROC: 0JH63XZ Insertion of Tunneled Vascular Access Device into Chest Subcutaneous Tissue and Fascia, Percutaneous Approach (ICD-10-PCS; 2021-04-10)
PROC: 06HY33Z Insertion of Infusion Device into Lower Vein, Percutaneous Approach (ICD-10-PCS; 2021-04-10)
PROC: 5A1955Z Respiratory Ventilation, Greater than 96 Consecutive Hours (ICD-10-PCS; 2021-04-10)
PROC: 5A09357 Assistance with Respiratory Ventilation, Less than 24 Consecutive Hours, Continuous Positive Airway Pressure (ICD-10-PCS; 2021-04-10)
PROC: 0BH17EZ Insertion of Endotracheal Airway into Trachea, Via Natural or Artificial Opening (ICD-10-PCS; 2021-04-10)
PROC: 5A12012 Performance of Cardiac Output, Single, Manual (ICD-10-PCS; 2021-04-27)
DX: U07.1 COVID-19 (principal); J12.82 Pneumonia due to coronavirus disease 2019; A41.9 Sepsis, unspecified organism; R65.21 Severe sepsis with septic shock; E43 Unspecified severe protein-calorie malnutrition; J96.01 Acute respiratory failure with hypoxia; N17.0 Acute kidney failure with tubular necrosis; J93.0 Spontaneous tension pneumothorax; L03.116 Cellulitis of left lower limb; L03.115 Cellulitis of right lower limb; D61.818 Other pancytopenia; Z68.42 Body mass index [BMI] 45.0-49.9, adult; G93.40 Encephalopathy, unspecified; J98.19 Other pulmonary collapse; Z85.3 Personal history of malignant neoplasm of breast; M19.90 Unspecified osteoarthritis, unspecified site; E78.5 Hyperlipidemia, unspecified; M81.0 Age-related osteoporosis without current pathological fracture; D63.8 Anemia in other chronic diseases classified elsewhere; E11.22 Type 2 diabetes mellitus with diabetic chronic kidney disease; I12.9 Hypertensive chronic kidney disease with stage 1 through stage 4 chronic kidney disease, or unspecified chronic kidney disease; I89.0 Lymphedema, not elsewhere classified; E66.01 Morbid (severe) obesity due to excess calories; G47.30 Sleep apnea, unspecified; N18.30 Chronic kidney disease, stage 3 unspecified; E86.1 Hypovolemia; E83.51 Hypocalcemia; E11.65 Type 2 diabetes mellitus with hyperglycemia; R00.1 Bradycardia, unspecified; I48.91 Unspecified atrial fibrillation; E87.5 Hyperkalemia; B37.9 Candidiasis, unspecified; R53.81 Other malaise; R00.0 Tachycardia, unspecified
CPT/HCPCS: 36415; 70450; 71045; 71275; 74018; 80048; 80053; 80076; 80202; 81001; 81003; 81015; 82570; 82728; 82805; 82947; 83735; 83880; 84100; 84132; 84145; 84156; 84300; 84443; 84484; 84550; 85025; 85049; 85610; 85730; 86140; 86317; 86704; 87040; 87070; 87086; 87088; 87205; 87340; 88108; 88312; 93005; 93306; 93971; 94002; 94003; 94660; 96365; 96366; 96372; 96375; 97161; 99285; J0171; J0330; J0360; J0692; J1630; J1650; J1815; J1940; J2248; J2250; J2704; J2920; J2930; J3010; J3370; J7040; J7050; J7060; J8540; P9047; Q9967; U0003